=== PATIENT | female | born 1955 | race Caucasian/White ===

== ENCOUNTER 2023-02-01 13:48 | Outpatient (OUT) | payer MEDICARE, SELFPAY ==
[2023-02-01 14:09] LABS: Bilirubin Urine NEGATIVE (NEGATIVE); Blood Urine SMALL (NEGATIVE); Clarity Urine CLEAR (CLEAR); Color Urine LT. YELLOW (YELLOW); Glucose Urine UA NEGATIVE (NEGATIVE); Ketones Urine NEGATIVE (NEGATIVE); Leukocyte Esterase Urine LARGE (NEGATIVE); Nitrite Urine POSITIVE (NEGATIVE); Protein Urine NEGATIVE (NEG/TRACE); Urobilinogen Urine 0.2 EU/dL (0.2-1.0)
[2023-02-01 14:21] LABS: WBC Urine 50-75 #/HPF (NONE SEEN)
[2023-02-01 14:22] LABS: Bacteria Urine SMALL #/HPF (NONE SEEN); Cast Seen? NONE SEEN #/LPF (NONE SEEN); Crystals Seen? None Seen #/HPF (None Seen); Mucus Urine TRACE (NONE SEEN); Squamous Epithelial Cell Urine RARE #/LPF (NONE/RARE); Urine Culture Indicated ALREADY ORDERED
== END 2023-02-01 13:49 | disposition home or self-care (01) ==
PROVIDERS: PCP Family Medicine; Visit Provider Nurse Practitioner Family
DX: N39.0 Urinary tract infection, site not specified (principal)
CPT/HCPCS: 81001; 87086; 87150; 87186

== ENCOUNTER 2023-03-08 13:52 | Outpatient (OUT) | payer MEDICARE, SELFPAY ==
[2023-03-08 15:36] LABS: Bilirubin Urine NEGATIVE (NEGATIVE); Blood Urine SMALL (NEGATIVE); Clarity Urine CLEAR (CLEAR); Color Urine LT. YELLOW (YELLOW); Glucose Urine UA NEGATIVE (NEGATIVE); Ketones Urine NEGATIVE (NEGATIVE); Leukocyte Esterase Urine MODERATE (NEGATIVE); Nitrite Urine POSITIVE (NEGATIVE); Protein Urine NEGATIVE (NEG/TRACE); Specific Gravity Urine <=1.005 (1.005-1.025); Urobilinogen Urine 0.2 EU/dL (0.2-1.0)
[2023-03-08 16:00] LABS: Bacteria Urine NONE SEEN #/HPF (NONE SEEN); Cast Seen? NONE SEEN #/LPF (NONE SEEN); Crystals Seen? None Seen #/HPF (None Seen); Mucus Urine NONE SEEN (NONE SEEN); RBC Urine 0-2 #/HPF (0-2); Squamous Epithelial Cell Urine RARE #/LPF (NONE/RARE)
[2023-03-08 16:01] LABS: Urine Culture Indicated ALREADY ORDERED
== END 2023-03-08 13:53 | disposition home or self-care (01) ==
LOC: LAB 13:56
PROVIDERS: PCP Family Medicine; Visit Provider Family Medicine
DX: R30.0 Dysuria (principal)
CPT/HCPCS: 81001; 87086; 87150; 87186

== ENCOUNTER 2023-03-26 08:40 | Outpatient (OUT) | payer MEDICARE, SELFPAY ==
[2023-03-26 09:13] LABS: Basophils Absolute Auto 0.1 10^3/uL (0.0-0.1); Basophils Percent Auto 1.1 % (0.2-2.0); Eosinophils Absolute Auto 0.5 10^3/uL (0.0-0.7); Eosinophils Percent Auto 7.9 % (0.9-7.0); Hematocrit 35.8 % (36.0-48.0); Hemoglobin 11.8 g/dL (12.0-16.0); Immature Granulocytes Abs Auto 0.01 10^3/uL (0.00-0.03); Immature Granulocytes Pct Auto 0.2 % (0.0-0.5); Lymphocytes Absolute Auto 2.5 10^3/uL (1.2-3.8); Lymphocytes Percent Auto 44.6 % (20.5-60.0); Mean Corpuscular Hemoglobin 29.9 pg (26.7-34.0); Mean Corpuscular Volume 90.6 fL (81.0-99.0); Mean Platelet Volume 8.9 fL (9.5-13.5); Monocytes Absolute Auto 0.5 10^3/uL (0.3-0.8); Monocytes Percent Auto 8.3 % (1.7-12.0); Neutrophils Absolute Auto 2.2 10^3/uL (1.4-6.5); Neutrophils Percent Auto 37.9 % (43.0-75.0); Platelet Count 164 10^3/uL (150-450); Red Blood Count 3.95 10^6/uL (4.20-5.40); White Blood Count 5.7 10^3/uL (4.0-11.0)
[2023-03-26 09:17] LABS: Estimated Average Glucose 126 mg/dL
[2023-03-26 10:28] LABS: Alanine Aminotransferase 30 U/L (14-59); Albumin Globulin Ratio 1.1; Albumin Level 3.8 g/dL (3.4-5.0); Alkaline Phosphatase 57 U/L (46-116); Anion Gap 12.8; Aspartate Amino Transferase 13 U/L (15-37); BUN Creatinine Ratio 23.8; Bilirubin Total 0.3 mg/dL (0.2-1.0); Calcium 9.1 mg/dL (8.5-10.1); Carbon Dioxide 28.8 mmol/L (21.0-32.0); Chloride 104 mmol/L (98-107); Chol HDL Ratio 4.3; Cholesterol 171 mg/dL (<=200); Estimated GFR (African America >60 (>=60); Estimated GFR (Non-African Ame 55 (>=60); Free T3 1.85 pg/mL (2.18-3.98); Globulin 3.4 g/dL; Glucose 120 mg/dL (74-106); HDL Cholesterol 40 mg/dL (40-60); Potassium 4.6 mmol/L (3.5-5.1); Sodium 141 mmol/L (136-145); Thyroid Stimulating Hormone 4.026 uIU/mL (0.358-3.740); Total Protein 7.2 g/dL (6.4-8.2); Triglycerides 163 mg/dL (<=150); VLDL CHOLESTEROL 32.6 mg/dL
== END 2023-03-26 08:41 | disposition home or self-care (01) ==
LOC: LAB 08:41
PROVIDERS: PCP Family Medicine; Visit Provider Family Medicine
DX: I10 Essential (primary) hypertension (principal); E11.9 Type 2 diabetes mellitus without complications; R73.09 Other abnormal glucose; D64.9 Anemia, unspecified; E55.9 Vitamin D deficiency, unspecified
CPT/HCPCS: 36415; 80053; 80061; 82306; 83036; 83540; 84436; 84443; 84481; 85025

== ENCOUNTER 2023-03-31 08:00 | Outpatient (OUT) | payer MEDICARE, SELFPAY ==
--- NOTE | 2023-03-31 08:04 | XR_ITS ---
The [address] [address] Patient Name: GRICELDA LOPEZ MRN: [id number] date: 1955 Sex: F Assigned Patient Location: US Current Patient Location: US Accession/Order Number: [id number] Exam Date: 03/31/2023 08:47 Report Date: 03/31/2023 09:21 At the request of: SINAN HILL Procedure: XR cervical spine 5V EXAMINATION: XR cervical spine 5V HISTORY: Cervical Radiculopathy M54.12 COMPARISON: No relevant comparison available. FINDINGS: BONES: Normal alignment with no acute fracture or spondylolisthesis. Mild degenerative spondylosis and facet osteoarthropathy DISC SPACES: Moderate narrowing C5-C7 PARASPINOUS: Negative. No paraspinous abnormality is seen. OTHER: Negative. XR/XR cervical spine 5V IMPRESSION: Degenerative changes most significant C5-C7 Electronically authenticated by: BRENT BENJAMIN Date: 03/31/2023 09:21
--- NOTE | 2023-03-31 08:05 | US_ITS ---
The [address] [address] Patient Name: GRICELDA LOPEZ MRN: [id number] date: 1955 Sex: F Assigned Patient Location: US Current Patient Location: US Accession/Order Number: [id number] Exam Date: 03/31/2023 08:15 Report Date: 03/31/2023 08:52 At the request of: SINAN HILL Procedure: US renal bladder EXAM: US renal bladder HISTORY: Recurrent Urinary Tract Infection N39.0 COMPARISON: CT abdomen and pelvis 11/11/2022. TECHNIQUE: Real-time ultrasound imaging of the kidneys and bladder. Findings: The right and left kidneys measure 10.2 and 12.0 cm. There is good corticomedullary differentiation bilaterally. No renal stones. No right-sided collecting system dilatation. Mild left pelviectasis. No focal mass or perinephric fluid collection. The bladder is fluid-filled with a prevoid volume of 290 mL. The bilateral ureteral jets identified. Postvoid residual volume of 13 mL. US/US renal bladder IMPRESSION: 1. Mild left pelviectasis. Findings may relate to normal variant, obstruction, reflux or recently passed stone. Electronically authenticated by: GAVIN JOHNSON Date: 03/31/2023 08:52
== END 2023-03-31 08:01 | disposition home or self-care (01) ==
LOC: US 08:01
PROVIDERS: PCP Family Medicine; Visit Provider Family Medicine
DX: M54.12 Radiculopathy, cervical region (principal); N39.0 Urinary tract infection, site not specified; N28.89 Other specified disorders of kidney and ureter; M50.321 Other cervical disc degeneration at C4-C5 level; M50.323 Other cervical disc degeneration at C6-C7 level
CPT/HCPCS: 72050; 76770

== ENCOUNTER 2023-04-26 08:16 | Outpatient (OUT) | payer MEDICARE, SELFPAY ==
[2023-04-26 09:26] LABS: Free T3 2.64 pg/mL (2.18-3.98); Thyroid Stimulating Hormone 2.963 uIU/mL (0.358-3.740)
[2023-04-26 09:59] LABS: Free T4 0.93 ng/dL (0.76-1.46)
== END 2023-04-26 08:17 | disposition home or self-care (01) ==
LOC: LAB 08:19
PROVIDERS: PCP Family Medicine; Visit Provider Family Medicine
DX: E03.9 Hypothyroidism, unspecified (principal)
CPT/HCPCS: 36415; 84439; 84443; 84481

== ENCOUNTER 2023-04-26 19:58 | Outpatient (OUT) | payer MEDICARE, SELFPAY | END 2023-04-26 19:59 | disposition home or self-care (01) | LOC: SLEEP 19:58 | PROVIDERS: PCP Family Medicine; Visit Provider Family Medicine | DX: G47.33 Obstructive sleep apnea (adult) (pediatric) (principal) | CPT/HCPCS: 95810 ==

== ENCOUNTER 2023-06-01 21:00 | Outpatient (OUT) | payer MEDICARE, SELFPAY ==
--- OUTSIDE RECORDS SUMMARY | 2023-06-02 07:14 | XMS_ITS | CCD ---
Author Name Unknown Address [address] [place] [address] Organization [facility] Care Team Providers Care Engine Lathe Operator Name Role Phone MD Christophe Louis Attending Provider SERGIO Del Valle, DR MENON Attending Unavailable SERGIO Del Valle, DR MENON Consulting Unavailable SERGIO Del Valle, DR MENON Primary Care Unavailable SERGIO Del Valle, DR MENON Admitting Unavailable Christophe Louis Attending Unavailable Christophe Louis Admitting Unavailable Problems Problem Classification Problem Date Documented Da te Episodic/Chronic Unclassified (1 source) Local infection of the skin and subcutaneous tissue, unspecified; Translations: [Local infection of the skin and subcutaneous tissue, unspecified] Onset: 10-22-2022 Results Test Name Value Interpretation Reference Range Facil ity CBC AUTO DIFFon 11-11-2022 BASO # 0.0 103/ul Normal 0.0-0.1 [facility] Comment on above: Performed By: #### I RADHA VITAD #### [facility] [address] [address] [address] Dario Umaña Basophils/100 WBC (Bld) 0.5 % Normal 0.2-2.0 [facility] Comment on above: Performed By: #### I RADHA VITAD #### [facility] [address] [address] [address] Dario Umaña EO # 0.4 103/ul Normal 0.0-0.7 [facility] Comment on above: Performed By: #### Lizzette GARCIA VITAD #### [facility] [address] [address] [address] Dario Umaña Eosinophils/100 WBC (Bld) 5.3 % Normal 0.9-7.0 [facility] Comment on above: Performed By: #### Lizzette GARCIA, VITAD #### [facility] [address] [place] [address] Dr. Dario Umaña Erythrocyte distribution wid th (RBC) [Ratio] 12.3 % Normal 11.0-15.0 [facility] Comment on above: Performed By: #### Lizzette GARCIA, VITAD #### [facility] [address] [place] [address] Dr. Dario Umaña Hematocrit (Bld) [Volume fraction] 40.1 % Normal 3 6.0-48.0 [facility] Comment on above: Performed By: #### Lizzette GARCIA VITAD #### [facility] [address] [place] [address] Dr. Dario Umaña Hemoglobin (Bld) [Mass/Vol] 13.4 g/dL Normal 12.0-16. 0 [facility] Comment on above: Performed By: #### Lizzette GARCIA VITAD #### [facility] [address] [place] [address] Dr. Dario Umaña IG # 0.02 10e3/ul Normal 0.00-0.03 [facility] Comment on above: Performed By: #### Lizzette GARCIA VITAD #### [facility] [address] [place] [address] Dr. Dario Umaña IG % 0.3 % Normal 0.0-0.5 [facility] Comment on above: Performed By: #### Lizzette GARCIA VITAD #### [facility] [address] [place] [address] Dr. Dario Umaña LYMPH # 2.6 103/ul Normal 1.2-3.8 [facility] Comment on above: Performed By: #### Lizzette GARCIA VITAD #### [facility] [address] [place] [address] Dr. Dario Umaña Lymphocytes/100 WBC (Bld) 38.6 % Normal 20.5-60.0 [facility] Comment on above: Performed By: #### Lizzette GARCIA VITAD #### [facility] [address] [place] [address] Dr. Dario Umaña MANUAL DIFF REQ NO Normal [facility] [place] Comment on above: Performed By: #### I RADHA, VITAD #### [facility] [address] [place] [address] Dr. Dario Umaña MCH (RBC) [Entitic mass] 29.3 pg Normal 26.7-34.0 [facility] Comment on above: Performed By: #### I RADHA, VITAD #### [facility] [address] [place] [address] Dr. Dario Umaña MCHC (RBC) [Mass/Vol] 33.4 g/dL Normal 29.9-35.2 [facility] Comment on above: Performed By: #### I RADHA, VITAD #### [facility] [address] [place] [address] Dr. Dario Umaña MCV (RBC) [Entitic vol] 87.7 fL Normal 81.0-99.0 [facility] Comment on above: Performed By: #### I RAHDA, VITAD #### [facility] [address] [place] [address] Dr. Dario Umaña MONO # 0.5 103/ul Normal 0.3-0.8 [facility] Comment on above: Performed By: #### Lizzette GARCIA, VITAD #### [facility] [address] [place] [address] Dr. Dario Umaña Monocytes/100 WBC (Bld) 7.5 % Normal 1.7-12.0 [facility] Comment on above: Performed By: #### I RADHA, VITAD #### [facility] [address] [place] [address] Dr. Dario Umaña NEUT # 3.2 103/ul Normal 1.4-6.5 [facility] Comment on above: Performed By: #### I RADHA, VITAD #### [facility] [address] [place] [address] Dr. Dario Umaña Neutrophils/100 WBC (Bld) 47.8 % Normal 43.0-75.0 [facility] Comment on above: Performed By: #### I RADHA, VITAD #### [facility] [address] [address] [address] Dario Umaña Platelet mean volume (Bld) [Entitic vol] 8.7 fL Critically low 9.5-13.5 [facility] Comment on above: Performed By: #### I RADHA, VITAD #### [facility] [address] [address] [address] Dario Umaña PLT 200 103/ul Normal 150-450 [facility] Comment on above: Performed By: #### I RADHA, VITAD #### [facility] [address] [address] [address] Dario Umaña RBC 4.57 106/ul Normal 4.20-5.40 [facility] Comment on above: Performed By: #### I RADHA, VITAD #### [facility] [address] [address] [address] Dario Umaña WBC 6.6 103/ul Normal 4.0-11.0 [facility] Comment on above: Performed By: #### I RADHA, VITAD #### [facility] [address] [address] [address] Dario U[address]ña [address] ABD/PELV W CONon 11-12-19 CT ABD/PELV W CON EXAMINATION: CT ABD/ PELV W CON HISTORY: Essential hypertension COMPARISON: None. TECHNIQUE: Axial CT images were obtained of the abdomen and pelvis with intravenous contrast. Multiplanar reconstructions were performed. Dose reduction techniques were achieved by using automated exposure control and/or adjustment of mA and/or kV according to patient size and/or use of iterative reconstruction technique. ABDOMEN/PELVIS FINDINGS: Lower Chest: Unremarkable. Liver: Normal enhancement and contour. Biliary/Gallbladder: Unremarkable. Pancreas: Unremarkable. Spleen: Unremarkable. Adrenal Glands: Unremarkable. Kidneys: Unremarkable. Gastrointestinal/Peritoneum: No acute abnormality. Mild colonic diverticulosis is present. The appendix is unremarkable. No free air or free fluid. Vascular: Unremarkable. There is no evidence of atherosclerotic disease in the renal arteries. Lymph Nodes: No enlarged lymph nodes by CT size criteria. Pelvic Organs: Unremarkable. Bladder: Unremarkable. Bones: No acute osseous abnormality. Multilevel degenerative changes present in the spine with a prominent disc osteophyte complex at L1-L2 causing moderate to severe stenosis of the right lateral recess and neural foramina. Soft tissues: Unremarkable. IMPRESSION: 1. No acute abnormality of the abdomen and pelvis. 2. Mild colonic diverticulosis. 3. Prominent disc osteophyte complex at L1-L2 causing moderate to severe stenosis of the right lateral recess and neural foramina. Electronically authenticated by: ASYA ELIAN Date: 2022-11-11 10:01 Normal [facility] FREE THYROXINE INDEX T7on FTI 3.30 Normal 1.30-4.50 [facility] Comment on above: Performed By: #### C MP, TSH, LIPID, T7 #### [facility] [address] [address] [address] Dario Umaña T3U 33.0 % Normal 30.0-39.0 [facility] Comment on above: Performed By: #### C MP, TSH, LIPID, T7 #### [facility] [address] [place] [address] Dr. Dario Umaña T4 [Mass/Vol] 10.00 ug/dL Normal 4.80-13.90 [facility] Comment on above: Performed By: #### C MP, TSH, LIPID, T7 #### [facility] [address] [place] [address] Dr. Dario Umaña GLYCOHEMOGLOBIN A1Con 2022 ADA RECOMMENDATION SEE BELOW Normal [facility] Comment on above: Result Comment: ADA RECOMMENDED LIMIT 4.0 - 6.0 ADA THERAPEUTIC TARGET < 7.0 ACTION SUGGESTED > 7.0 Performed By: #### A 1C #### [facility] [address] [address] [address] Dario Umaña Glucose [Mass/Vol] 123 mg/dL Normal [facility] Comment on above: Performed By: #### A 1C #### [facility] [address] [place] [address] Dr. Dario Umaña HbA1c (Bld) [Mass fraction] 5.9 % Normal 4.5-6.2 [facility] Comment on above: Performed By: #### A 1C #### [facility] [address] [address] [address] Dario Umaña IRONon 11-11-2022 Iron [Mass/Vol] 92.0 ug/dL Normal 50.0-170.0 [facility] Comment on above: Performed By: #### I VALENTINO GARCIA #### [facility] [address] [address] [address] Dario Umaña LIPID PROFILEon 11-11-2022 CHOL-HDL RATIO NORM SEE BELOW Normal [facility] Comment on above: Result Comment: 3.3 - 4.4 LOW RISK 4.4 - 7.1 AVERAGE RISK 7.1 - 11.0 MODERATE RISK >11.0 HIGH RISK Performed By: #### C MP, TSH, LIPID, T7 #### [facility] [address] [address] [address] Dario Umaña Cholesterol [Mass/Vol] 174 mg/dL Normal <=200 [facility] Comment on above: Performed By: #### C MP, TSH, LIPID, T7 #### [facility] [address] [address] [address] Dario Umaña Cholesterol in HDL [Mass/Vol] 55 mg/dL Normal 40-60 [facility] Comment on above: Performed By: #### C MP, TSH, LIPID, T7 #### [facility] [address] [address] [address] Dario Umaña Cholesterol in LDL [Mass/Vol] 91.2 mg/dL Normal [facility] Comment on above: Performed By: #### C MP, TSH, LIPID, T7 #### [facility] [address] [address] [address] Dario Umaña Cholesterol.total/Cholestero l in HDL [Mass ratio] 3.2 {ratio} Normal [facility] Comment on above: Performed By: #### C MP, TSH, LIPID, T7 #### [facility] [address] [address] [address] Dario Umaña HDL NORMAL > or = 60 mg/dl - LO W CARDIOVASCULAR RISK <40 mg/dl - HIGH CARDIOVASCULAR RISK Normal [facility] Comment on above: Performed By: #### C MP, TSH, LIPID, T7 #### [facility] [address] [place], [place] [address] Dr. Dario Umaña LDL CALC NORMAL SEE BELOW Normal [facility] Comment on above: Result Comment: <100 mg/dl OPTIMAL 100 - 129 mg/dl NEAR OR ABOVE OPTIMAL 130 - 159 mg/dl BORDERLINE HIGH 160 - 189 mg/dl HIGH >190 mg/dl VERY HIGH Performed By: #### C MP, TSH, LIPID, T7 #### [facility] [address] [place], [place] [address] Dr. Dario Umaña Triglyceride [Mass/Vol] 139 mg/dL Normal <=150 [facility] Comment on above: Performed By: #### C MP, TSH, LIPID, T7 #### [facility] [address] [place], [place] [address] Dr. Dario Umaña VLDL CALC 27.8 mg/dL Normal [facility] Comment on above: Performed By: #### C MP, TSH, LIPID, T7 #### [facility] [address] [place], [place] [address] Dr. Dario Umaña MG MAMM SCREEN 3D LUBNA CADon 11-11-2022 MG MAMM SCREEN 3D LUBNA CAD Patient: GRICELDA LOPEZ Exam Date: 11/11/2022 : 1955 Gender:F Ordering : DR SINAN HILL . Admission #: [id number] Family : Order #: [id number] CLICK HERE TO VIEW EXAM RADIOLOGY REPORT PROCEDURE: MAMMOGRAM SCREENING 3D BILATERAL CAD COMPARISON: MG MAMM SCREEN 3D LUBNA CAD, 02/06/2021. MG MAMM LUBNA SCRN W CAD DIG, 12/18/2014. DIGITIZED_MAMMO, 04/25/2010. DIGITIZED_MAMMO, 06/29/2008. INDICATIONS: Screening mammography Calculator Name NCI Breast Cancer Risk Assessment Tool 5 Year Breast Cancer Risk Not Reported. Lifetime Breast Cancer Risk Not Reported. Personal Breast Cancer No Personal Ovarian Cancer No Treatments None Family Cancers None LOCATION: [facility] BREAST COMPOSITION: Almost entirely fatty. FINDINGS: DIAGNOSTIC CATEGORY 1--NEGATIVE. RIGHT BREAST: No significant suspicious finding. No significant change has occurred. LEFT BREAST: No significant suspicious finding. No significant change has occurred. RECOMMENDATIONS: ROUTINE MAMMOGRAM AND CLINICAL EVALUATION IN 12 MONTHS. PLEASE NOTE: A NORMAL MAMMOGRAM DOES NOT EXCLUDE THE POSSIBILITY OF BREAST CANCER. A CLINICALLY SUSPICIOUS PALPABLE LUMP SHOULD BE BIOPSIED. Dictated by: Tex Baldwin M.D. on 11/11/2022 at 16:43 Approved by: Tex Baldwin M.D. on 11/11/2022 at 16:48 Normal [facility] tara PROF 14(COMP METB)on 023 Albumin [Mass/Vol] 3.9 g/dL Normal 3.4-5.0 [facility] Comment on above: Performed By: #### C MP, TSH, LIPID, T7 #### [facility] [address] [place] [address] Dr. Dario Umaña Albumin/Globulin [Mass ratio] 1.1 {ratio} Normal [facility] Comment on above: Performed By: #### C MP, TSH, LIPID, T7 #### [facility] [address] [address] [address] Dario Umaña ALP [Catalytic activity/Vol] 76 U/L Normal 46-116 [facility] Comment on above: Performed By: #### C MP, TSH, LIPID, T7 #### [facility] [address] [place] [address] Dr. Dario Umaña ALT [Catalytic activity/Vol] 38 U/L Normal 14-59 [facility] Comment on above: Performed By: #### C MP, TSH, LIPID, T7 #### [facility] [address] [address] [address] Dario Umaña Anion gap [Moles/Vol] 15.8 mmol/L Normal [facility] Comment on above: Performed By: #### C MP, TSH, LIPID, T7 #### [facility] [address] [address] [address] Dario Umaña AST [Catalytic activity/Vol] 21 U/L Normal 15-37 [facility] Comment on above: Performed By: #### C MP, TSH, LIPID, T7 #### [facility] [address] [place] [address] Dr. Dario Umaña Bilirubin [Mass/Vol] 0.5 mg/dL Normal 0.2-1.0 [facility] Comment on above: Performed By: #### C MP, TSH, LIPID, T7 #### [facility] [address] [address] [address] Dario Umaña Calcium [Mass/Vol] 9.0 mg/dL Normal 8.5-10.1 [facility] Comment on above: Performed By: #### C MP, TSH, LIPID, T7 #### [facility] [address] [address] [address] Dario Umaña Chloride [Moles/Vol] 105 mmol/L Normal 98-107 [facility] Comment on above: Performed By: #### C MP, TSH, LIPID, T7 #### [facility] [address] [place] [address] Dr. Dario Umaña CO2 [Moles/Vol] 22.6 mmol/L Normal 21.0-32.0 [facility] Comment on above: Performed By: #### C MP, TSH, LIPID, T7 #### [facility] [address] [place] [address] Dr. Dario Umaña Creatinine [Mass/Vol] 0.89 mg/dL Normal 0.55-1.02 [facility] Comment on above: Performed By: #### C MP, TSH, LIPID, T7 #### [facility] [address] [place] [address] Dr. Dario Umaña EGFR-AF ANDORRAN >60 Normal >=60 [facility] Comment on above: Performed By: #### C MP, TSH, LIPID, T7 #### [facility] [address] [place] [address] Dr. Dario Umaña EGFR-NON AF ANDORRAN >60 Normal >=60 [facility] Comment on above: Performed By: #### C MP, TSH, LIPID, T7 #### [facility] [address] [address] [address] Dario Umaña Globulin (S) [Mass/Vol] 3.6 g/dL Normal [facility] Comment on above: Performed By: #### C MP, TSH, LIPID, T7 #### [facility] [address] [place] [address] Dr. Dario Umaña Glucose [Mass/Vol] 120 mg/dL Critically high 74-106 [facility] Comment on above: Performed By: #### C MP, TSH, LIPID, T7 #### [facility] [address] [place] [address] Dr. Dario Umaña Potassium [Moles/Vol] 4.4 mmol/L Normal 3.5-5.1 [facility] Comment on above: Performed By: #### C MP, TSH, LIPID, T7 #### [facility] [address] [place] [address] Dr. Dario Umaña Protein [Mass/Vol] 7.5 g/dL Normal 6.4-8.2 [facility] Comment on above: Performed By: #### C MP, TSH, LIPID, T7 #### [facility] [address] [place] [address] Dr. Dario Umaña Sodium [Moles/Vol] 139 mmol/L Normal 136-145 [facility] Comment on above: Performed By: #### C MP, TSH, LIPID, T7 #### [facility] [address] [place] [address] Dr. Dario Umaña Urea nitrogen [Mass/Vol] 16.0 mg/dL Normal 7.0-18.0 [facility] Comment on above: Performed By: #### C MP, TSH, LIPID, T7 #### [facility] [address] [place] [address] Dr. Dario Umaña Urea nitrogen/Creatinine [Mass ratio] 18.0 mg/mg Normal [facility] Comment on above: Performed By: #### C MP, TSH, LIPID, T7 #### [facility] [address] [place] [address] Dr. Dario Umaña TSHon 11-11-2022 TSH 3.151 uIU/mL Normal 0.358-3.740 [facility] Comment on above: Performed By: #### C MP, TSH, LIPID, T7 #### [facility] [address] [place] [address] Dr. Dario Umaña UA RANDOMon 11-11-2022 Bilirubin Ql (U) Negative Normal NEGATIVE [facility] Comment on above: Performed By: #### U A #### [facility] [address] [place] [address] Dr. Dario Umaña Clarity (U) CLEAR Normal CLEAR [facility] Comment on above: Performed By: #### U A #### [facility] [address] [place] [address] Dr. Dario Umaña Color (U) LT. YELLOW Normal YELLOW [facility] Comment on above: Performed By: #### U A #### [facility] [address] [place] [address] Dr. Dario Umaña Glucose Ql (U) Negative Normal NEGATIVE [facility] Comment on above: Performed By: #### U A #### [facility] [address] [place] [address] Dr. Dario Umaña Hemoglobin Ql (U) Negative Normal NEGATIVE [facility] Comment on above: Performed By: #### U A #### [facility] [address] [place] [address] Dr. Dario Umaña Ketones Ql (U) Negative Normal NEGATIVE [facility] Comment on above: Performed By: #### U A #### [facility] [address] [place] [address] Dr. Dario Umaña LEUKOCYTES MODERATE Abnormal NEGATIVE [facility] Comment on above: Performed By: #### U A #### [facility] [address] [place] [address] Dr. Dario Umaña Nitrite Ql (U) Positive Abnormal NEGATIVE [facility] Comment on above: Performed By: #### U A #### [facility] [address] [place] [address] Dr. Dario Umaña pH (U) 5.5 [pH] Normal 5-9 [facility] Comment on above: Performed By: #### U A #### [facility] [address] [place] [address] Dr. Dario Umaña SPEC GRAVITY 1.025 Normal 1.005-<=1.025 [facility] Comment on above: Performed By: #### U A #### [facility] [address] [place] [address] Dr. Dario Umaña UA PROTEIN Negative Normal NEGATIVE/ TRACE [facility] Comment on above: Performed By: #### U A #### [facility] [address] [place] [address] Dr. Dario Umaña Urobilinogen Qn (U) 0.2 {German'U}/dL Normal 0.2 - 1. 0 [facility] Comment on above: Performed By: #### U A #### [facility] [address] [place] [address] Dr. Dario Umaña VITAMIN D 25 OHon 11-11-2022 VIT D 25-OH 71.1 ng/mL Normal [facility] Comment on above: Performed By: #### I RADHA VITAD #### [facility] [address] [place] [address] Dr. Dario Umaña VIT D RANGES SEE BELOW Normal [facility] Comment on above: Result Comment: <20 ng/mL Vit D deficient 20 - <30 ng/mL Vit D insufficient 30 - 100 ng/mL Vit D sufficient >100 ng/mL Potential Toxicity Performed By: #### I RADHA VITAD #### [facility] [address] [place] [address] Dr. Dario Umaña Superficial Wound Cultureon 10-22-2022 Superficial Wound Culture ORGANISM: Proteus vulgaris group (O:PROVULGRP) Quantity of Growth Moderate Growth Aerobic BENEDICTO Charge (NMIC56) SUSCEPTIBILITY ORGANISM: O:PROVULGRP ANTIBIOTIC INTERPRETATION BENEDICTO Amikacin S <16 Amoxacillin/K Clavulanate S <8 Ampicillin/Sulbactam S 88/4 Aztreonam S <4 Cefepime S <2 Ceftazidime S <1 Ceftriaxone S <1 Ciprofloxacin S <0.25 Ertapenem S <0.5 Gentamicin S <2 Levofloxacin S <0.5 Meropenem S <1 Piperacillin/Tazobactam S <8 Tobramycin S <2 Trimethoprim/Sulfamethoxazole S <0.5 S = SUSCEPTIBLE I = INTERMEDIATE R = RESISTANT BLANK = DATA NOT AVAILABLE, OR DRUG NOT ADVISABLE OR TESTED R* = RESISTANCE DUE TO EXTENDED SPECTRUM BETA-LACTAMASES ESBL = EXTENDED SPECTRUM BETA-LACTAMASE TFG = THYMIDINE-DEPENDENT STRAIN HI = BETA-LACTAMASE POSITIVE IB = INDUCIBLE BETA-LACTAMASE. APPEARS IN PLACE OF 'S' WITH SPECIES KNOWN TO POSSESS INDUCIBLE BETA-LACTAMASES. POTENTIALLY THEY MAY BECOME RESISTANT TO ALL B-LACTAM DRUGS. PERFORMED BY: [place] [address] PATHOLOGIST VIDEO RECORDER MECHANIC DORETHA BLOOD M.D. [facility] Comment on above: Performed By: #### C USUP #### [address] Physician Referralon [facility] Physician Referral [id number] [facility] Encounters Encounter Date Encounter Type Care Provider Facility Start: 11-11-[address] SINAN HILL . Facili ty:H1 Start: 10-22-2022 End: 10-22-2022 ambulatory Christophe Louis Facility:[facility] Start: 10-22-2022 End: 10-22-2022 ambulatory MD Christophe Louis Work Phone: [facility] Work Phone: Start: 10-22-2022 End: 10-22-2022 Patient encounter procedure MD Christophe Louis Work Phone: [facility] [place] Work Phone: Plan of Treatment Date Care Activity Detail Author Start: 10-22-2022 Superficial Wound Culture Superficial Wound Culture [facility] Bacteria identified in Unspecified specimen by Aerobe culture [facility] Payers Date Payer Category Payer Self-pay 1958 Medicare [id number] 1955 Unknown [id number] Unknown [id number] Social History Date Type Detail [facility] Work Phone: Start: 1955 Sex Assigned At Female [facility] Evaluation note Note Date & Type Note Facility Evaluation note No assessment information availa ble [facility] Work Phone: Summary Purpose Family History No Family History Records FoundNo Family History Records FoundNo Family History Records Found Advance Directives No Advanced Directives Records FoundNo Advanced Directives Records FoundNo Advanced Directives Records Found Additional Source Comments INFORMATION SOURCE (unrecogn ized section and content) DATE CREATED AUTHOR 03/07/2021 [facility]mar[facility] DATE CREATED AUTHOR AUTHOR'S ORGANIZ ATION 11/20/2022 [facility] DATE CREATED AUTHOR AUTHOR'S ORGANIZ ATION 03/20/2023 [facility] Care Teams (unrecognized sec tion and content) Team Status: Inactive Member Role Status Dates Christophe Louis MD Attending Provider Active Goals (unrecognized section and content) Goals may be documented in a n alternate section FOR RECORDS PERTAINING TO PATIENTS WHO ARE OR HAVE BEEN ENROLLED IN A CHEMICAL DEPENDENCY/SUBSTANCEABUSE PROGRAM, SOME INFORMATION MAY BE OMITTED. This clinical summary was aggregated from multiple sources. Caution should be exercised in using it in the provision of clinical care. This summary normalizes information from multiple sources, and as a consequence, information in this document may materially change the coding, format and clinical context of patient data. In addition, data may be omitted in some cases. CLINICAL DECISIONS SHOULD BE BASED ON THE PRIMARY CLINICAL RECORDS. [employer] provides no warranty or guarantee of the accuracy or completeness of information in this document.
== END 2023-06-01 21:01 | disposition home or self-care (01) ==
LOC: SLEEP 06-02 07:03
PROVIDERS: PCP Family Medicine; Visit Provider Family Medicine
DX: G47.33 Obstructive sleep apnea (adult) (pediatric) (principal)
CPT/HCPCS: 95811

== ENCOUNTER 2023-06-03 07:59 | Outpatient (OUT) | payer MEDICARE, SELFPAY ==
--- NOTE | 2023-06-03 08:33 | CA_ITS ---
[facility] Test Date: 2023-06-21 Pat Name: GRICELDA LOPEZ Department: Room: - Gender: Female [employer]: : [id number] Requested By: SINAN HILL Order Number: [id number] Reading MD: LANI ORLANDO Interpretive Statements Predominant rhythm is sinus with average rate of 81 bpm Tachycardia - max rate of 134 bpm (sinus tachycardia) - longest episode of 34min 37sec with rates between 123-126 bpm Bradycardia - min rate of 55 bpm - longest episode of 11sec with rates between 55-57 bpm Ventricular ectopy - 3 PVC Patient triggered events: 3 - associated with symptoms of CP, palpitations and SOB - associated with rates of 111, 118 BPM w/ last NSR Impression: Predominant rhythm is sinus with average rate of 81 bpm Fastest rate of 134 bpm (sinus tachycardia) and slowest rate of 55 bpm 3 PVC No atrial fib No pauses or blocks Electronically Signed On 06-22-2023 22:31:47 EST by LANI ORLANDO
--- OUTSIDE RECORDS SUMMARY | 2023-06-03 10:33 | XMS_ITS | CCD ---
Author Name Unknown Address [address] [place] [address] Organization [facility] Care Team Providers Care Inspector And Clerk Name Role Phone MD Christophe Louis Attending Provider [phone] SERGIO Del Valle, DR MENON Attending Unavailable [...] Results Test Name Value Interpretation Reference Range Facility CBC AUTO DIFFon 11-11-2022 BASO # 0.0 103/ul Normal 0.0-0.1 [facility] [place] Comment on above: Performed By: #### Lizzette GARCIA VITAD #### [facility] [address] [address] [address] Dario Umaña Basophils/100 WBC (Bld) 0.5 % Normal 0.2-2.0 [facility] Comment on above: Performed By: #### I RADHA VITAD #### [facility] [address] [address] [address] Dario Umaña EO # 0.4 103/ul Normal 0.0-0.7 [facility] [place] Comment on above: Performed By: #### Lizzette GARCIA VITAD #### [facility] [address] [address] [address] Dario Umaña Eosinophils/100 WBC (Bld) 5.3 % Normal 0.9-7.0 [facility] [place] Comment on above: Performed By: #### I RADHA, VITAD #### [facility] [address] [place] [address] Dr. Dario Umaña Erythrocyte distribution width (RBC) [Ratio] 12.3 % Normal 11.0-15.0 [facility] [place] Comment on above: Performed By: #### Lizzette GARCIA, VITAD #### [facility] [address] [place] [address] Dr. Dario Umaña Hematocrit (Bld) [Volume fraction] 40.1 % Normal 36.0-48.0 [facility] [place] Comment on above: Performed By: #### I RADHA VITAD #### [facility] [address] [place] [address] Dr. Dario Umaña Hemoglobin (Bld) [Mass/Vol] 13.4 g/dL Normal 12.0-16.0 [facility] [place] Comment on above: Performed By: #### Lizzette GARCIA VITAD #### [facility] [address] [place] [address] Dr. Dario Umaña IG # 0.02 10e3/ul Normal 0.00-0.03 [facility] [place] Comment on above: Performed By: #### Lizzette GARCIA VITAD #### [facility] [address] [place] [address] Dr. Dario Umaña IG % 0.3 % Normal 0.0-0.5 [facility] [place] Comment on above: Performed By: #### Lizzette GARCIA VITAD #### [facility] [address] [place] [address] Dr. Dario Umaña LYMPH # 2.6 103/ul Normal 1.2-3.8 [facility] [place] Comment on above: Performed By: #### Lizzette GARCIA VITAD #### [facility] [address] [place] [address] Dr. Dario Umaña Lymphocytes/100 WBC (Bld) 38.6 % Normal 20.5-60.0 [facility] [place] Comment on above: Performed By: #### Lizzette GARCIA, VITAD #### [facility] [address] [place] [address] Dr. Dario Umaña MANUAL DIFF REQ NO Normal [facility] Comment on above: Performed By: #### I RADHA, VITAD #### [facility] [address] [place] [address] Dr. Dario Umaña MCH (RBC) [Entitic mass] 29.3 pg Normal 26.7-34.0 [facility] [place] Comment on above: Performed By: #### I RADHA, VITAD #### [facility] [address] [place] [address] Dr. Dario Umaña MCHC (RBC) [Mass/Vol] 33.4 g/dL Normal 29.9-35.2 [facility] Comment on above: Performed By: #### Lizzette GARCIA, VITAD #### [facility] [address] [place] [address] Dr. Dario Umaña MCV (RBC) [Entitic vol] 87.7 fL Normal 81.0-99.0 [facility] [place] Comment on above: Performed By: #### Lizzette GARCIA VITAD #### [facility] [address] [place] [address] Dr. Dario Umaña MONO # 0.5 103/ul Normal 0.3-0.8 [facility] Comment on above: Performed By: #### Lizzette GARCIA VITAD #### [facility] [address] [place] [address] Dr. Dario Umaña Monocytes/100 WBC (Bld) 7.5 % Normal 1.7-12.0 [facility] [place] Comment on above: Performed By: #### Lizzette GARCIA VITAD #### [facility] [address] [place] [address] Dr. Dario Umaña NEUT # 3.2 103/ul Normal 1.4-6.5 [facility] Comment on above: Performed By: #### Lizzette GARCIA VITAD #### [facility] [address] [place] [address] Dr. Dario Umaña Neutrophils/100 WBC (Bld) 47.8 % Normal 43.0-75.0 [facility] [place] Comment on above: Performed By: #### Lizzette GARCIA VITAD #### [facility] [address] [place] [address] Dr. Dario Umaña Platelet mean volume (Bld) [Entitic vol] 8.7 fL Critically low 9.5-13.5 [facility] Comment on above: Performed By: #### I RADHA, VITAD #### [facility] [address] [address] [address] Dario Umaña PLT 200 103/ul Normal 150-450 [facility] Comment on above: Performed By: #### I RADHA, VITAD #### [facility] [address] [address] [address] Dario Umaña RBC 4.57 106/ul Normal 4.20-5.40 [facility] [place] Comment on above: Performed By: #### I RADHA VITAD #### [facility] [address] [place] [address] Dr. Dario Umaña WBC 6.6 103/ul Normal 4.0-11.0 [facility] [place] Comment on above: Performed By: #### Lizzette GARCIA VITAD #### [facility] [address] [place] [address] ABD/PELV W CONon 11-12-19 CT ABD/PELV W CON EXAMINATION: CT ABD/PELV W CON HISTORY: Essential hypertension COMPARISON: None. [...] Spleen: Unremarkable. Adrenal Glands: Unremarkable. Kidneys: Unremarkable. Gastrointestinal/Per itoneum: No acute abnormality. Mild colonic diverticulosis is [...] and neural foramina. Electronically authenticated by: ASYA PLUMMER Date: 2022-11-11 10:01 Normal [facility] FREE THYROXINE INDEX T7on FTI 3.30 Normal 1.30-4.50 [facility] [place] Comment on above: Performed By: #### C MP, TSH, LIPID, T7 #### [facility] [address] [address] [address] Dario Umaña T3U 33.0 % Normal 30.0-39.0 [facility] [place] Comment on above: Performed By: #### C MP, TSH, LIPID, T7 #### [facility] [address] [place] [address] Dr. Dario Umaña T4 [Mass/Vol] 10.00 ug/dL Normal 4.80-13.90 [facility] Comment on above: Performed By: #### C MP, TSH, LIPID, T7 #### [facility] [address] [address] [address] Dario Umaña GLYCOHEMOGLOBIN A1Con 2022 ADA RECOMMENDATION SEE BELOW Normal [facility] Comment on above: Result Comment: ADA RECOMMENDED LIMIT 4.0 - 6.0 ADA THERAPEUTIC TARGET < 7.0 ACTION SUGGESTED > 7.0 Performed By: #### A 1C #### [facility] [address] [address] [address] Dario Umaña Glucose [Mass/Vol] 123 mg/dL Normal [facility] Comment on above: Performed By: #### A 1C #### [facility] [address] [place] [address] Dr. Dario Umaña HbA1c (Bld) [Mass fraction] 5.9 % Normal 4.5-6.2 [facility] [place] Comment on above: Performed By: #### A 1C #### [facility] [address] [place] [address] Dr. Dario Umaña IRONon 11-11-2022 Iron [Mass/Vol] 92.0 ug/dL Normal 50.0-170.0 [facility] Comment on above: Performed By: #### I VALENTINO GARCIA #### [facility] [address] [address] [address] Dario Umaña LIPID PROFILEon 11-11-2022 CHOL-HDL RATIO NORM SEE BELOW Normal [facility] Comment on above: Result Comment: 3.3 - 4.4 LOW RISK 4.4 - 7.1 AVERAGE RISK 7.1 - 11.0 MODERATE RISK >11.0 HIGH RISK Performed By: #### C MP, TSH, LIPID, T7 #### [facility] [address] [address] [address] Dario Umaña Cholesterol [Mass/Vol] 174 mg/dL Normal <=200 [facility] [place] Comment on above: Performed By: #### C MP, TSH, LIPID, T7 #### [facility] [address] [place] [address] Dr. Dario Umaña Cholesterol in HDL [Mass/Vol] 55 mg/dL Normal 40-60 [facility] [place] Comment on above: Performed By: #### C MP, TSH, LIPID, T7 #### [facility] [address] [place] [address] Dr. Dario Umaña Cholesterol in LDL [Mass/Vol] 91.2 mg/dL Normal [facility] [place] Comment on above: Performed By: #### C MP, TSH, LIPID, T7 #### [facility] [address] [place] [address] Dr. Dario Umaña Cholesterol.total/Cho lesterol in HDL [Mass ratio] 3.2 {ratio} Normal [facility] [place] Comment on above: Performed By: #### C MP, TSH, LIPID, T7 #### [facility] [address] [place] [address] Dr. Dario Umaña HDL NORMAL > or = 60 mg/dl - LOW CARDIOVASCULAR RISK <40 mg/dl - HIGH CARDIOVASCULAR RISK Normal [facility] [place] Comment on above: Performed By: #### C MP, TSH, LIPID, T7 #### [facility] [address] [place] [address] Dr. Dario Umaña LDL CALC NORMAL SEE BELOW Normal [facility] Comment on above: Result Comment: <100 mg/dl OPTIMAL 100 - 129 mg/dl NEAR OR ABOVE OPTIMAL 130 - 159 mg/dl BORDERLINE HIGH 160 - 189 mg/dl HIGH >190 mg/dl VERY HIGH Performed By: #### C MP, TSH, LIPID, T7 #### [facility] [address] [place], [place] [address] Dr. Dario Umaña Triglyceride [Mass/Vol] 139 mg/dL Normal <=150 [facility] [place] Comment on above: Performed By: #### C MP, TSH, LIPID, T7 #### [facility] [address] [place], [place] [address] Dr. Dario Umaña VLDL CALC 27.8 mg/dL Normal [facility] Comment on above: Performed By: #### C MP, TSH, LIPID, T7 #### [facility] [address] [place], [place] [address] Dr. Dario Umaña MG MAMM SCREEN 3D LUBNA CADon 11-11-2022 MG MAMM SCREEN 3D LUBNA CAD Patient: GRICELDA LOPEZ Exam Date: 11/11/2022 : 1955 Gender:F Ordering : DR SINAN HILL . Admission #: [id number] Family : Order #: [id number] CLICK HERE TO VIEW EXAM RADIOLOGY REPORT [...] Treatments None Family Cancers None LOCATION: [facility] BREAST COMPOSITION: Almost entirely fatty. FINDINGS: DIAGNOSTIC [...] Baldwin M.D. on 11/11/2022 at 16:48 Normal [facility] [place] PROF 14(COMP METB)on 023 Albumin [Mass/Vol] 3.9 g/dL Normal 3.4-5.0 [facility] Comment on above: Performed By: #### C MP, TSH, LIPID, T7 #### [facility] [address] [address] [address] Dario Umaña Albumin/Globulin [Mass ratio] 1.1 {ratio} Normal [facility] [place] Comment on above: Performed By: #### C MP, TSH, LIPID, T7 #### [facility] [address] [address] [address] Dario Umaña ALP [Catalytic activity/Vol] 76 U/L Normal 46-116 [facility] [place] Comment on above: Performed By: #### C MP, TSH, LIPID, T7 #### [facility] [address] [address] [address] Dario Umaña ALT [Catalytic activity/Vol] 38 U/L Normal 14-59 [facility] [place] Comment on above: Performed By: #### C MP, TSH, LIPID, T7 #### [facility] [address] [address] [address] Dario Umaña Anion gap [Moles/Vol] 15.8 mmol/L Normal [facility] Comment on above: Performed By: #### C MP, TSH, LIPID, T7 #### [facility] [address] [address] [address] Dario Umaña AST [Catalytic activity/Vol] 21 U/L Normal 15-37 [facility] [place] Comment on above: Performed By: #### C MP, TSH, LIPID, T7 #### [facility] [address] [address] [address] Dario Umaña Bilirubin [Mass/Vol] 0.5 mg/dL Normal 0.2-1.0 [facility] [place] Comment on above: Performed By: #### C MP, TSH, LIPID, T7 #### [facility] [address] [address] [address] Dario Umaña Calcium [Mass/Vol] 9.0 mg/dL Normal 8.5-10.1 [facility] Comment on above: Performed By: #### C MP, TSH, LIPID, T7 #### [facility] [address] [address] [address] Dario Umaña Chloride [Moles/Vol] 105 mmol/L Normal 98-107 [facility] [place] Comment on above: Performed By: #### C MP, TSH, LIPID, T7 #### [facility] [address] [address] [address] Dario Umaña CO2 [Moles/Vol] 22.6 mmol/L Normal 21.0-32.0 [facility] Comment on above: Performed By: #### C MP, TSH, LIPID, T7 #### [facility] [address] [place] [address] Dr. Dario Umaña Creatinine [Mass/Vol] 0.89 mg/dL Normal 0.55-1.02 [facility] [place] Comment on above: Performed By: #### C MP, TSH, LIPID, T7 #### [facility] [address] [place] [address] Dr. Dario Umaña EGFR-AF TOGOLESE >60 Normal >=60 [facility] Comment on above: Performed By: #### C MP, TSH, LIPID, T7 #### [facility] [address] [place] [address] Dr. Dario Umaña EGFR-NON AF TOGOLESE >60 Normal >=60 [facility] [place] Comment on above: Performed By: #### C MP, TSH, LIPID, T7 #### [facility] [address] [address] [address] Dario Umaña Globulin (S) [Mass/Vol] 3.6 g/dL Normal [facility] [place] Comment on above: Performed By: #### C MP, TSH, LIPID, T7 #### [facility] [address] [address] [address] Dario Umaña Glucose [Mass/Vol] 120 mg/dL Critically high 74-106 T [facility] Comment on above: Performed By: #### C MP, TSH, LIPID, T7 #### [facility] [address] [address] [address] Dario Umaña Potassium [Moles/Vol] 4.4 mmol/L Normal 3.5-5.1 [facility] [place] Comment on above: Performed By: #### C MP, TSH, LIPID, T7 #### [facility] [address] [place] [address] Dr. Dario Umaña Protein [Mass/Vol] 7.5 g/dL Normal 6.4-8.2 [facility] Comment on above: Performed By: #### C MP, TSH, LIPID, T7 #### [facility] [address] [place] [address] Dr. Dario Umaña Sodium [Moles/Vol] 139 mmol/L Normal 136-145 [facility] Comment on above: Performed By: #### C MP, TSH, LIPID, T7 #### [facility] [address] [place] [address] Dr. Dario Umaña Urea nitrogen [Mass/Vol] 16.0 mg/dL Normal 7.0-18.0 [facility] [place] Comment on above: Performed By: #### C MP, TSH, LIPID, T7 #### [facility] [address] [place] [address] Dr. Dario Umaña Urea nitrogen/Creatinine [Mass ratio] 18.0 mg/mg Normal [facility] [place] Comment on above: Performed By: #### C MP, TSH, LIPID, T7 #### [facility] [address] [place] [address] Dr. Dario Umaña TSHon 11-11-2022 TSH 3.151 uIU/mL Normal 0.358-3.740 [facility] Comment on above: Performed By: #### C MP, TSH, LIPID, T7 #### [facility] [address] [place] [address] Dr. Dario Umaña UA RANDOMon 11-11-2022 Bilirubin Ql (U) Negative Normal NEGATIVE [facility] Comment on above: Performed By: #### U A #### [facility] [address] [place] [address] Dr. Dario Umaña Clarity (U) CLEAR Normal CLEAR [facility] Comment on above: Performed By: #### U A #### [facility] [address] [place] [address] Dr. Dario Umaña Color (U) LT. YELLOW Normal YELLOW [facility] Comment on above: Performed By: #### U A #### [facility] [address] [place] [address] Dr. Dario Umaña Glucose Ql (U) Negative Normal NEGATIVE [facility] Comment on above: Performed By: #### U A #### [facility] [address] [place] [address] Dr. Dario Umaña Hemoglobin Ql (U) Negative Normal NEGATIVE [facility] Comment on above: Performed By: #### U A #### [facility] [address] [place] [address] Dr. Dario Umaña Ketones Ql (U) Negative Normal NEGATIVE [facility] Comment on above: Performed By: #### U A #### [facility] [address] [place] [address] Dr. Dario Umaña LEUKOCYTES MODERATE Abnormal NEGATIVE [facility] Comment on above: Performed By: #### U A #### [facility] [address] [place] [address] Dr. Dario Umaña Nitrite Ql (U) Positive Abnormal NEGATIVE [facility] Comment on above: Performed By: #### U A #### [facility] [address] [place] [address] Dr. Dario Umaña pH (U) 5.5 [pH] Normal 5-9 [facility] Comment on above: Performed By: #### U A #### [facility] [address] [place] [address] Dr. Dario Umaña SPEC GRAVITY 1.025 Normal 1.005-<=1.025 [facility] Comment on above: Performed By: #### U A #### [facility] [address] [place] [address] Dr. Dario Umaña UA PROTEIN Negative Normal NEGATIVE/ TRACE [facility] Comment on above: Performed By: #### U A #### [facility] [address] [place] [address] Dr. Dario Umaña Urobilinogen Qn (U) 0.2 {German'U}/dL Normal 0.2 - 1. 0 [facility] [place] Comment on above: Performed By: #### U A #### [facility] [address] [place] [address] Dr. Dario Umaña VITAMIN D 25 OHon 11-11-2022 VIT D 25-OH 71.1 ng/mL Normal [facility] Comment on above: Performed By: #### I RADHA VITAD #### [facility] [address] [place] [address] Dr. Dario Umaña VIT D RANGES SEE BELOW Normal [facility] [place] Comment on above: Result Comment: <20 ng/mL Vit D deficient 20 - <30 ng/mL Vit D insufficient 30 - 100 ng/mL Vit D sufficient >100 ng/mL Potential Toxicity Performed By: #### I RADHA VITAD #### [facility] [address] [place] [address] Dr. Dario Umaña Superficial Wound Cultureon 10-22-2022 Superficial Wound Culture ORGANISM: Proteus vulgaris group (O:PROVULGRP) Quantity of Growth Moderate Growth Aerobic BENEDICTO Charge (NMIC56) ----- SUSCEPTIBILITY ---- ORGANISM: O:PROVULGRP ANTIBIOTIC INTERPRETATION BENEDICTO Amikacin S <16 Amoxacillin/K Clavulanate S <8 Ampicillin/Sulbactam S 88/4 Aztreonam S <4 Cefepime S <2 Ceftazidime S <1 Ceftriaxone S <1 Ciprofloxacin S <0.25 Ertapenem S <0.5 Gentamicin S <2 Levofloxacin S <0.5 Meropenem S <1 Piperacillin/Tazobac monte S <8 Tobramycin S <2 Trimethoprim/Sulfame thoxazole S <0.5 S = SUSCEPTIBLE I = [...] RESISTANT TO ALL B-LACTAM DRUGS. PERFORMED BY: [place] [address] PATHOLOGIST BONE PULLER DORETHA BLOOD M.D. Normal [facility] Comment on above: Performed By: #### C USUP #### [place] [id number] [facility] Physician Referralon [facility] Physician Referral [phone] [id number] #[id number] [facility] Encounters Encounter Date Encounter Type Care Provider Facility Start: 11-11-[address] SINAN HILL . Facili ty:H1 Start: 10-22-2022 End: 10-22-2022 ambulatory Christophe Louis Facility:[facility] Start: 10-22-2022 End: 10-22-2022 ambulatory MD Christophe Louis Work Phone: [facility] Work Phone: Start: 10-22-2022 End: 10-22-2022 Patient encounter procedure MD Christophe Louis Work Phone: [facility] [place] Work Phone: Plan of Treatment Date Care Activity Detail Author Start: 10-22-2022 Superficial Wound Culture Superficial Wound Culture [facility] Bacteria identified in Unspecified specimen by Aerobe culture [facility] Payers Date Payer Category Payer Self-pay 1958 Medicare [id number] 1955 Unknown [id number] Unknown [id number] Social History Date Type Detail Facility Tobacco smoking stat us NHIS Unknown if ever smoked [facility] Work Phone: Start: 1955 Sex Assigned At Female F [facility] Evaluation note Note Date & Type Note Facility Evaluation note No assessment information availa ble [facility] Work Phone: Summary Purpose Family History No Family History Records FoundNo Family History Records FoundNo Family History Records Found Advance Directives No Advanced Directives Records FoundNo Advanced Directives Records FoundNo Advanced Directives Records Found Additional Source Comments INFORMATION SOURCE (unrecogn ized section and content) DATE CREATED AUTHOR 03/07/2021 Carranza Jeanmarie [facility] DATE CREATED AUTHOR AUTHOR'S ORGANIZ ATION 11/20/2022 [facility] DATE CREATED AUTHOR AUTHOR'S ORGANIZ ATION 03/20/2023 [facility] Care Teams (unrecognized sec tion and content) [...] BE BASED ON THE PRIMARY CLINICAL RECORDS. [employer] [facility]. provides no warranty or guarantee of the accuracy or completeness of information in this document.
== END 2023-06-03 08:00 | disposition home or self-care (01) ==
LOC: CARD 07:59
PROVIDERS: PCP Family Medicine; Visit Provider Family Medicine
DX: J21.9 Acute bronchiolitis, unspecified (principal); R07.9 Chest pain, unspecified
CPT/HCPCS: 93246

== ENCOUNTER 2023-06-21 07:59 | Outpatient (OUT) | payer MEDICARE, SELFPAY ==
--- NOTE | 2023-06-21 | PCN_ITS ---
CARDIAC STRESS TEST Requesting Physician: Procedure Date: 06/21/2023 This was a treadmill exercise stress test with myocardial perfusion imaging performed at the [facility] on 06/21/2023. Informed consent was obtained. The patient was attached to electrocardiographic monitoring and an intravenous line was secured. Resting vital signs and ECG were obtained. The patient exercised on the treadmill according to the Matteo protocol for 3 minutes and 23 seconds and reached stage 2 of the protocol and achieved 5.5 METS. Resting heart rate was 79 BPM. Maximum heart rate was 150 BPM, representing 97% of maximal predicted heart rate. Resting blood pressure was 118/80 and maximum blood pressure was 192/84. Cardiolite was injected at peak exercise. The patient went on to obtain myocardial perfusion imaging. Resting ECG showed sinus rhythm with no ischemic changes. ECG during exercise showed evidence of sinus tachycardia with upsloping ST changes but no ischemic ST changes seen. Final ECG showed evidence of sinus rhythm with no ischemic changes. There were no arrhythmias. The patient had shortness of breath and muscle fatigue with exercise, as well as mild chest discomfort. SUMMARY OF THE FINDINGS: 1. No evidence of ischemic ST changes during treadmill exercise stress test. 2. Beaulieu treadmill score of +3 is associated with intermediate risk for skilled nursing cardiac events. 3. No blood pressure at rest with hypertensive response to exercise. 4. Reduced functional capacity. 5. Myocardial perfusion imaging will be reported separately. LAVON
--- NOTE | 2023-06-21 07:50 | NM_ITS ---
Patient Name: GRICELDA LOPEZ MR#: [id number] : 1955 Exam Date: 06/21/2023 Ordering Doctor: DR Michael Kendrick . RADIOLOGY REPORT PROCEDURE: NM LAST PERF SPECT REST STR COMPARISON: None. INDICATIONS: CHEST PAIN TECHNIQUE: Exam Description: Rest/Stress one day protocol gated SPECT Rest Imagin.3 mCi Tc-99m Cardiolite IV on 06/21/2023 Stress Imaging 30.9 mCi Tc-99m Cardiolite IV on 06/21/2023 Exercise Protocol: Matteo Heart Rate (bpm): Rest: 82 Max: 150 PMHR: 97 Blood Pressure: Rest: 118/80 Max: 192/84 Exercise Time: Minutes: 3 Seconds: 23 Stage Reached: Stage: 2 Mets 5.5 Symptoms: Rest and peak stress ECG findings were pending and the exercise portion of the study was pending per attending physician Dr. FAJARDO . For more details please see separate cardiac stress test report. FINDINGS: QUALITY OF STUDY: Good. PERFUSION DEFECT: LOCATION: Mid-anterior. Apical anterior. SIZE: Small (1-2 segments). SEVERITY: Mild. TYPE: Persistent. WALL MOTION: Normal. LV SIZE: Normal. 58 mL. TID / TCD: None; 0.8 LVEF: Normal. Calculated EF 78%. SUMMARY: Myocardial perfusion imaging study is NORMAL. CONCLUSION: Small area of decreased activity in the anterior wall on stress imaging, stable on rest imaging with no definite reversible ischemia Pending exercise test Dictated by: Jhonatan Moreno MD on 06/21/2023 at 11:23 Approved by: Jhonatan Moreno MD on 06/21/2023 at 11:35
== END 2023-06-21 08:00 | disposition home or self-care (01) ==
LOC: NM 07:59
PROVIDERS: PCP Family Medicine; Visit Provider Family Medicine
DX: J21.9 Acute bronchiolitis, unspecified (principal); R07.9 Chest pain, unspecified
CPT/HCPCS: 78452; 93017; A9500

== ENCOUNTER 2023-09-17 14:53 | Outpatient (OUT) | payer MEDICARE, SELFPAY ==
[2023-09-17 16:01] LABS: Bilirubin Urine NEGATIVE (NEGATIVE); Blood Urine MODERATE (NEGATIVE); Clarity Urine CLOUDY (CLEAR); Color Urine LT. YELLOW (YELLOW); Glucose Urine UA NEGATIVE (NEGATIVE); Ketones Urine NEGATIVE (NEGATIVE); Leukocyte Esterase Urine LARGE (NEGATIVE); Nitrite Urine POSITIVE (NEGATIVE); Protein Urine TRACE mg/dL (NEG/TRACE); Specific Gravity Urine 1.025 (1.005-1.025); Urobilinogen Urine 0.2 EU/dL (0.2-1.0); pH Urine 5.5 (5.0-9.0)
[2023-09-17 16:19] LABS: Bacteria Urine MODERATE #/HPF (NONE SEEN); Cast Seen? NONE SEEN #/LPF (NONE SEEN); Crystals Seen? None Seen #/HPF (None Seen); Mucus Urine NONE SEEN (NONE SEEN); Squamous Epithelial Cell Urine FEW #/LPF (NONE/RARE); WBC Urine >100 #/HPF (NONE SEEN)
== END 2023-09-17 14:54 | disposition home or self-care (01) ==
LOC: LAB 14:54
PROVIDERS: PCP Family Medicine; Visit Provider Family Medicine
DX: R30.0 Dysuria (principal)
CPT/HCPCS: 81001; 87086; 87150; 87186

== ENCOUNTER 2023-09-27 14:34 | Outpatient (OUT) | payer MEDICARE, SELFPAY ==
--- NOTE | 2023-09-27 14:37 | MR_ITS ---
The [address] [address] Patient Name: GRICELDA LOPEZ MRN: [facility]:[id number] date: 1955 Sex: F Assigned Patient Location: MRI Current Patient Location: MRI Accession/Order Number: [id number] Exam Date: 09/27/2023 14:55 Report Date: 09/27/2023 16:51 At the request of: SINAN HILL Procedure: MR head/brain wo con EXAM: MR head/brain wo con HISTORY: Memory Loss R41.3 COMPARISON: None. TECHNIQUE: MRI of the brain was performed without contrast. FINDINGS: There is no restricted diffusion to suggest acute infarct. There is no midline shift, mass effect, or abnormal extraaxial fluid collections. The cortical sulci and ventricular system are within normal limits. There is a couple of nonspecific scattered foci of T2/FLAIR signal abnormality in the left frontal white matter, likely related to chronic microvascular ischemia for this age. The major intracranial flow voids are visualized. The cerebellar tonsils are normal in position. The orbits are unremarkable. The paranasal sinuses show no air-fluid level. The mastoid air cells are clear. The calvarium and extracranial soft tissues are unremarkable. MR/MR head/brain wo con IMPRESSION: No acute intracranial abnormality. Mild chronic microvascular ischemic changes. No evidence to suggest a neurodegenerative process. Electronically authenticated by: NEVILLE FLEMING Date: 09/27/2023 16:51
== END 2023-09-27 14:35 | disposition home or self-care (01) ==
LOC: MRI 14:34
PROVIDERS: PCP Family Medicine; Visit Provider Family Medicine
DX: R41.3 Other amnesia (principal)
CPT/HCPCS: 70551

== ENCOUNTER 2023-12-20 14:04 | Outpatient (OUT) | payer MEDICARE, SELFPAY ==
--- NOTE | 2023-12-20 14:10 | XR_ITS ---
[address] [address] Patient Name: GRICELDA LOPEZ MRN: [id number] date: 1955 Sex: F Assigned Patient Location: [facility] Current Patient Location: Accession/Order Number: [id number] Exam Date: 12/20/2023 14:20 Report Date: 12/21/2023 08:09 At the request of: BROOKE MORENO Procedure: XR abdomen 1V EXAMINATION: XR abdomen 1V HISTORY: Recurrent Urinary Tract Infection N39.0 COMPARISON: No relevant comparison available. FINDINGS: BOWEL GAS PATTERN: No abnormal dilation or deviation. CALCIFICATIONS: None significant. 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
--- OUTSIDE RECORDS SUMMARY | 2023-12-20 14:24 | XMS_ITS | CCD ---
Author Organization [facility] Care Team Providers Care Cvir Tech Name Role Phone MD Christophe Louis Attending Provider [phone] DR SINAN JOHN Attending Unavailable SERGIO ., DR MENON Consulting Unavailable SERGIO Del Valle, DR MENON Primary Care Unavailable SERGIO Del Valle, DR MENON Admitting Unavailable Christophe Louis Attending Unavailable Christophe Louis Admitting Unavailable Sinan Kendrick Primary Care Physician DEVANG MORENO Attending Unavailab le Sinan Kendrick Referring Unavailable Allergies Allergy Classification Reported Allergen(s) Allergy Type Date of Onset Reaction(s) Facility (2 sources) Sulfonamides (Antibiotic); Translations: [sulfa drugs] Drug allergy Eruption of skin (disorder) [facility] Medications Current Medications Medication Drug Class(es) Dates Sig (Normalized) Sig (Original) lisinopril 10 mg oral tablet (1 source) Angiotensin Converting Enzyme Inhibitor Start: 03-07-2021 take 1 tablet by mouth once daily lisinopril 10 mg Tab 10 mg = 1 tab(s), Oral, Daily, Refills(s) 0 Start Date: 03/07/21 Status: Ordered metoprolol tartrate 50 mg oral tablet (1 source) beta-Adrenergic Antolin Start: 03-07-2021 take 1 tablet by mouth twice daily Metoprolol tartrate 50 mg Tab 50 mg = 1 tab(s), Oral, BID, Refills(s) 0 Start Date: 03/07/21 Status: Ordered oxybutynin chloride 5 mg oral tablet (1 source) Cholinergic Muscarinic Antagonist Start: 12-14-2023 oxybutynin 5 mg Tab 5 mg = 1 tab(s), Oral, PRN for urinary discomfort Start Date: 12/14/23 Status: Ordered Completed/Discontinued Medications Medication Drug Class(es) Dates Sig (Normalized) Sig (Original) estradiol 0.1 mg/ml vaginal cream (1 source) Estrogen Start: 12-14-2023 Estrace 0.1 mg/g Cream See Instructions, 42.5 gm, Refill(s) 6, apply 1gm vaginally w plunger and a pea-sized amount around the urethra w your finger nightly x 3 weeks then 3x per week thereafter, [facility]/pharmacy #[id number], 165, cm, 12/14/23 13:44:00 EDT, Height/Length Dosing, 95.6, kg, 12/14/23 13:44:00 EDT, Weight Dosing Start Date: 12/14/23 Status: Ordered Problems Problem Classification Problem Date Documented Date Episodic/Chronic Essential hypertension (1 source) Hypertensive disorder 12-14-2023 Chronic Genitourinary symptoms and ill-defined conditions (2 sources) Urge incontinence; Translations: [Urge incontinence of urine] Onset: 12-14-2023 Chronic Thyroid disorders (1 source) Hypothyroidism 12-14-2023 Chronic Unclassified (1 source) Local infection of the skin and subcutaneous tissue, unspecified; Translations: [Local infection of the skin and subcutaneous tissue, unspecified] Onset: 10-22-2022 Urinary tract infections (1 source) Urinary tract infectious disease; Translations: [Urinary tract infection, site not specified] Onset: 12-14-2023 Episodic Results Test Name Value Interpretation Reference Range Facility Ambulatory Visit Summaryon 0 12-14-2023 Ambulatory Visit Summary Ambulatory Visit Summary LAINE LOPEZ :1955 Visit Date:12/14/2023 Ambulatory Visit Instructions Your Diagnosis Recurrent UTI Urge urinary incontinence Tests Performed XR Abdomen 1 View -- Results Pending -- Please visit your patient portal for your results or contact your primary care physician. Your Care Team Attending Physician - TIFFANIE SIDDIQI, JULIA Taylor Primary Care Physician - Sinan Kendrick MD Referring Physician - Sinan Kendrick MD This Is Your Medications List Contact prescribing physician if questions or concerns albuterol (ProAir HFA) irbesartan (irbesartan 150 mg Tab) lisinopril (lisinopril 10 mg Tab) metoprolol (Metoprolol tartrate 50 mg Tab) oxybutynin (oxybutynin 5 mg Tab) Procedures Performed section, Tonsillectomy. Discharge Vitals Heart Rate (Peripheral) 77 Respiratory Rate 19 Blood Pressure 120/72 Height 165 cm Height 65 in Weight 95.6 kg Weight 210.32 lb BMI 35.11 What to do next You Need to Schedule the Following Appointments Follow Up with JULIA MORENO PA-C, URL When: Where: [address] [place] [address] Medications What How Much When Instructions Unchanged albuterol (ProAir HFA) 2 Puffs Inhalation Every 6 hours as needed for Shortness of breath or wheezing Contact prescribing physician if questions or concerns Unchanged irbesartan (irbesartan 150 mg Tab) 1 Tablets By Mouth Every day Contact prescribing physician if questions or concerns Unchanged lisinopril (lisinopril 10 mg Tab) 1 Tablets By Mouth Every day Contact prescribing physician if questions or concerns Unchanged metoprolol (Metoprolol tartrate 50 mg Tab) 1 Tablets By Mouth 2 times a day Contact prescribing physician if questions or concerns Unchanged oxybutynin (oxybutynin 5 mg Tab) 1 Tablets By Mouth As needed for for urinary discomfort Contact prescribing physician if questions or concerns Allergies sulfa drugs (Rash) Problems Ongoing - Any problem that you are currently receiving treatment for. Hypertension Hypothyroid Urge urinary incontinence Patient Survey You may receive a survey via text or e-mail asking about your office visit. Please share your experience with us by completing your survey. We appreciate your feedback and thank you for choosing us for your care. Education Materials Cystoscopy Cystoscopy is a procedure that is used to help diagnose and sometimes treat conditions that affect the lower urinary tract. The lower urinary tract includes the bladder and the urethra. The urethra is the tube that drains urine from the bladder. Cystoscopy is done using a thin, tube-shaped instrument with a light and camera at the end (cystoscope). The cystoscope may be hard or flexible, depending on the goal of the procedure. The cystoscope is inserted through the urethra, into the bladder. Cystoscopy may be recommended if you have: ? Urinary tract infections that keep coming back. ? Blood in the urine (hematuria). ? An inability to control when you urinate (urinary incontinence) or an overactive bladder. ? Unusual cells found in a urine sample. ? A blockage in the urethra, such as a urinary stone. ? Painful urination. ? An abnormality in the bladder found during an intravenous pyelogram (IVP) or CT scan. Cystoscopy may also be done to remove a sample of tissue to be examined under a microscope (biopsy). Tell a health care provider about: ? Any allergies you have. ? All medicines you are taking, including vitamins, herbs, eye drops, creams, and evtb-lli-kkbxwdk medicines. ? Any problems you or family members have had with anesthetic medicines. ? Any blood disorders you have. ? Any surgeries you have had. ? Any medical conditions you have. ? Whether you are or may be . What are the risks? Generally, this is a safe procedure. However, problems may occur, including: ? Infection. ? Bleeding. ? Allergic reactions to medicines. ? Damage to other structures or organs. What happens before the procedure? Medicines Ask your health care provider about: ? Changing or stopping your regular medicines. This is especially important if you are taking diabetes medicines or blood thinners. ? Taking medicines such as aspirin and ibuprofen. These medicines can thin your blood. Do not take these medicines unless your health care provider tells you to take them. ? Taking kmdv-vgs-yufdcwe medicines, vitamins, herbs, and supplements. Tests You may have an exam or testing, such as: ? X-rays of the bladder, urethra, or kidneys. ? CT scan of the abdomen or pelvis. ? Urine tests to check for signs of infection. General instructions ? Follow instructions from your health care provider about eating or drinking restrictions. ? Ask your health care provider what steps will be taken to help prevent infection. These steps (more content not included)... [facility] CBC AUTO DIFFon 11-11-2022 BASO # 0.0 103/ul Normal 0.0-0.1 [facility] Comment on above: Performed By: #### I VALENTINO GARCIA #### [facility] [address] [address] [address] Dario Umaña Basophils/100 WBC (Bld) 0.5 % Normal 0.2-2.0 [facility] Comment on above: Performed By: #### I VALENTINO GARCIA #### [facility] [address] [address] [address] Dario Umaña EO # 0.4 103/ul Normal 0.0-0.7 [facility] Comment on above: Performed By: #### I RADHA VITAD #### [facility] [address] [place] [address] Dr. Dario Umaña Eosinophils/100 WBC (Bld) 5.3 % Normal 0.9-7.0 [facility] Comment on above: Performed By: #### Lizzette GARCIA VITAD #### [facility] [address] [place] [address] Dr. Dario Umaña Erythrocyte distribution width (RBC) [Ratio] 12.3 % Normal 11.0-15.0 [facility] Comment on above: Performed By: #### Lizzette GARCIA VITAD #### [facility] [address] [place] [address] Dr. Dario Umaña Hematocrit (Bld) [Volume fraction] 40.1 % Normal 36.0-48.0 [facility] Comment on above: Performed By: #### Lizzette GARCIA VITAD #### [facility] [address] [place] [address] Dr. Dario Umaña Hemoglobin (Bld) [Mass/Vol] 13.4 g/dL Normal 12.0-16.0 [facility] Comment on above: Performed By: #### Lizzette GARCIA VITAD #### [facility] [address] [place] [address] Dr. Dario Umaña IG # 0.02 10e3/ul Normal 0.00-0.03 [facility] Comment on above: Performed By: #### Lizzette GARCIA VITAD #### [facility] [address] [place] [address] Dr. Dario Umaña IG % 0.3 % Normal 0.0-0.5 [facility] Comment on above: Performed By: #### I RADHA VITAD #### [facility] [address] [place] [address] Dr. Dario Umaña LYMPH # 2.6 103/ul Normal 1.2-3.8 [facility] Comment on above: Performed By: #### Lizzette GARCIA VITAD #### [facility] [address] [place] [address] Dr. Dario Umaña Lymphocytes/100 WBC (Bld) 38.6 % Normal 20.5-60.0 [facility] Comment on above: Performed By: #### I RADHA, VITAD #### [facility] [address] [place] [address] Dr. Dario Umaña MANUAL DIFF REQ NO Normal [facility] Comment on above: Performed By: #### I RADHA, VITAD #### [facility] [address] [place] [address] Dr. Dario Umaña MCH (RBC) [Entitic mass] 29.3 pg Normal 26.7-34.0 [facility] Comment on above: Performed By: #### I RADHA, VITAD #### [facility] [address] [place] [address] Dr. Dario Umaña MCHC (RBC) [Mass/Vol] 33.4 g/dL Normal 29.9-35.2 [facility] Comment on above: Performed By: #### I RADHA, VITAD #### [facility] [address] [place] [address] Dr. Dario Umaña MCV (RBC) [Entitic vol] 87.7 fL Normal 81.0-99.0 [facility] Comment on above: Performed By: #### I RADHA, VITAD #### [facility] [address] [place] [address] Dr. Dario Umaña MONO # 0.5 103/ul Normal 0.3-0.8 [facility] Comment on above: Performed By: #### I RADHA, VITAD #### [facility] [address] [place] [address] Dr. Dario Umaña Monocytes/100 WBC (Bld) 7.5 % Normal 1.7-12.0 [facility] Comment on above: Performed By: #### I RADHA, VITAD #### [facility] [address] [place] [address] Dr. Dario Umaña NEUT # 3.2 103/ul Normal 1.4-6.5 [facility] Comment on above: Performed By: #### I RADHA, VITAD #### [facility] [address] [place] [address] Dr. Dario Umaña Neutrophils/100 WBC (Bld) 47.8 % Normal 43.0-75.0 [facility] Comment on above: Performed By: #### I RADHA, VITAD #### [facility] [address] [place] [address] Dr. Dario Umaña Platelet mean volume (Bld) [Entitic vol] 8.7 fL Critically low 9.5-13.5 [facility] Comment on above: Performed By: #### I RADHA VITAD #### [facility] [address] [place] [address] Dr. Dario Umaña PLT 200 103/ul Normal 150-450 [facility] Comment on above: Performed By: #### I RADHA, VITAD #### [facility] [address] [place] [address] Dr. Dario Umaña RBC 4.57 106/ul Normal 4.20-5.40 [facility] Comment on above: Performed By: #### I RADHA, VITAD #### [facility] [address] [place] [address] Dr. Dario Umaña WBC 6.6 103/ul Normal 4.0-11.0 [facility] Comment on above: Performed By: #### I RADHA, VITAD #### [facility] [address] [place] [address] ABD/PELV W CONon 11-12-[address] ABD/PELV W CON EXAMINATION: CT ABD/PELV [...] ASYA PLUMMER Date: 2022-11-11 10:01 Normal [facility] FREE THYROXINE INDEX T7on FTI 3.30 Normal 1.30-4.50 [facility] Comment on above: Performed By: #### C MP, TSH, LIPID, T7 #### [facility] [address] [address] [address] Dario Umaña T3U 33.0 % Normal 30.0-39.0 [facility] Comment on above: Performed By: #### C MP, TSH, LIPID, T7 #### [facility] [address] [address] [address] Dario Umaña T4 [Mass/Vol] 10.00 ug/dL Normal 4.80-13.90 [facility] Comment on above: Performed By: #### C MP, TSH, LIPID, T7 #### [facility] [address] [address] [address] Dario Umaña GLYCOHEMOGLOBIN A1Con 2022 ADA RECOMMENDATION SEE BELOW Normal [facility] Comment on above: Result Comment: ADA RECOMMENDED LIMIT 4.0 - 6.0 ADA THERAPEUTIC TARGET < 7.0 ACTION SUGGESTED > 7.0 Performed By: #### A 1C #### [facility] [address] [place] [address] Dr. Dario Umaña Glucose [Mass/Vol] 123 mg/dL Normal [facility] Comment on above: Performed By: #### A 1C #### [facility] [address] [address] [address] Dario Umaña HbA1c (Bld) [Mass fraction] 5.9 % Normal 4.5-6.2 [facility] Comment on above: Performed By: #### A 1C #### [facility] [address] [place] [address] Dr. Dario Umaña IRONon 11-11-2022 Iron [Mass/Vol] 92.0 ug/dL Normal 50.0-170.0 [facility] Comment on above: Performed By: #### I VALENTINO GARCIA #### [facility] [address] [address] [address] Dario Umaña LIPID PROFILEon 11-11-2022 CHOL-HDL RATIO NORM SEE BELOW Normal [facility] Comment on above: Result Comment: 3.3 - 4.4 LOW RISK 4.4 - 7.1 AVERAGE RISK 7.1 - 11.0 MODERATE RISK >11.0 HIGH RISK Performed By: #### C MP, TSH, LIPID, T7 #### [facility] [address] [address] [address] Dario Umaña Cholesterol [Mass/Vol] 174 mg/dL Normal <=200 [facility] Comment on above: Performed By: #### C MP, TSH, LIPID, T7 #### [facility] [address] [place] [address] Dr. Dario Umaña Cholesterol in HDL [Mass/Vol] 55 mg/dL Normal 40-60 [facility] Comment on above: Performed By: #### C MP, TSH, LIPID, T7 #### [facility] [address] [address] [address] Dario Umaña Cholesterol in LDL [Mass/Vol] 91.2 mg/dL Normal [facility] Comment on above: Performed By: #### C MP, TSH, LIPID, T7 #### [facility] [address] [address] [address] Dario Umaña Cholesterol.total/Cho lesterol in HDL [Mass ratio] 3.2 {ratio} Normal [facility] Comment on above: Performed By: #### C MP, TSH, LIPID, T7 #### [facility] [address] [place], [place] [address] Dr. Dario Umaña HDL NORMAL > or = 60 mg/dl - LOW CARDIOVASCULAR RISK <40 mg/dl - HIGH CARDIOVASCULAR RISK Normal [facility] Comment on above: Performed By: #### C MP, TSH, LIPID, T7 #### [facility] [address] [place], [place] [address] Dr. Dario Umaña LDL CALC NORMAL SEE BELOW Normal [facility] Comment on above: Result Comment: <100 mg/dl OPTIMAL 100 - 129 mg/dl NEAR OR ABOVE OPTIMAL 130 - 159 mg/dl BORDERLINE HIGH 160 - 189 mg/dl HIGH >190 mg/dl VERY HIGH Performed By: #### C MP, TSH, LIPID, T7 #### [facility] [address] [address] [address] Dario Umaña Triglyceride [Mass/Vol] 139 mg/dL Normal <=150 [facility] Comment on above: Performed By: #### C MP, TSH, LIPID, T7 #### [facility] [address] [address] [address] Dario Umaña VLDL CALC 27.8 mg/dL Normal [facility] Comment on above: Performed By: #### C MP, TSH, LIPID, T7 #### [facility] [address] [address] [address] Dario Umaña MG MAMM SCREEN 3D LUBNA CADon 11-11-2022 MG MAMM SCREEN 3D LUBNA CAD Patient: LAINE LOPEZ Exam Date: 11/11/2022 : 1955 Gender:F Ordering : DR SINAN KENDRICK . Admission #: [id number] Family : Order #: [id number] CLICK HERE TO VIEW EXAM RADIOLOGY REPORT PROCEDURE: MAMMOGRAM SCREENING 3D BILATERAL CAD COMPARISON: MG MAMM SCREEN 3D LUBNA CAD, 02/06/2021. MG MAMM ULBNA SCRN W CAD DIG, 12/18/2014. DIGITIZED_MAMMO, 04/25/2010. DIGITIZED_MAMMO, 06/29/2008. INDICATIONS: Screening mammography Calculator Name NCI Breast Cancer Risk Assessment Tool 5 Year Breast Cancer Risk Not Reported. Lifetime Breast Cancer Risk Not Reported. Personal Breast Cancer No Personal Ovarian Cancer No Treatments None Family Cancers None LOCATION: [facility] BREAST COMPOSITION: Almost entirely fatty. FINDINGS: [...] Baldwin M.D. on 11/11/2022 at 16:48 Normal [facility] PROF 14(COMP METB)on 023 Albumin [Mass/Vol] 3.9 g/dL Normal 3.4-5.0 [facility] Comment on above: Performed By: #### C MP, TSH, LIPID, T7 #### [facility] [address] [address] [address] Dario Umaña Albumin/Globulin [Mass ratio] 1.1 {ratio} Normal [facility] Comment on above: Performed By: #### C MP, TSH, LIPID, T7 #### [facility] [address] [address] [address] Dario Umaña ALP [Catalytic activity/Vol] 76 U/L Normal 46-116 [facility] Comment on above: Performed By: #### C MP, TSH, LIPID, T7 #### [facility] [address] [address] [address] Dario Umaña ALT [Catalytic activity/Vol] 38 U/L Normal 14-59 [facility] Comment on above: Performed By: #### C MP, TSH, LIPID, T7 #### [facility] [address] [place], [place] [address] Dr. Dario Umaña Anion gap [Moles/Vol] 15.8 mmol/L Normal [facility] Comment on above: Performed By: #### C MP, TSH, LIPID, T7 #### [facility] [address] [place], [place] [address] Dr. Dario Umaña AST [Catalytic activity/Vol] 21 U/L Normal 15-37 [facility] Comment on above: Performed By: #### C MP, TSH, LIPID, T7 #### [facility] [address] [address] [address] Dario Umaña Bilirubin [Mass/Vol] 0.5 mg/dL Normal 0.2-1.0 [facility] Comment on above: Performed By: #### C MP, TSH, LIPID, T7 #### [facility] [address] [address] [address] Dario Umaña Calcium [Mass/Vol] 9.0 mg/dL Normal 8.5-10.1 [facility] Comment on above: Performed By: #### C MP, TSH, LIPID, T7 #### [facility] [address] [place] [address] Dr. Dario Umaña Chloride [Moles/Vol] 105 mmol/L Normal 98-107 [facility] Comment on above: Performed By: #### C MP, TSH, LIPID, T7 #### [facility] [address] [place] [address] Dr. Dario Umaña CO2 [Moles/Vol] 22.6 mmol/L Normal 21.0-32.0 [facility] Comment on above: Performed By: #### C MP, TSH, LIPID, T7 #### [facility] [address] [place] [address] Dr. Dario Umaña Creatinine [Mass/Vol] 0.89 mg/dL Normal 0.55-1.02 [facility] Comment on above: Performed By: #### C MP, TSH, LIPID, T7 #### [facility] [address] [place] [address] Dr. Dario Umaña EGFR-AF MOSOTHO >60 Normal >=60 [facility] Comment on above: Performed By: #### C MP, TSH, LIPID, T7 #### [facility] [address] [place] [address] Dr. Dario Umaña EGFR-NON AF MOSOTHO >60 Normal >=60 [facility] Comment on above: Performed By: #### C MP, TSH, LIPID, T7 #### [facility] [address] [place] [address] Dr. Dario Umaña Globulin (S) [Mass/Vol] 3.6 g/dL Normal [facility] Comment on above: Performed By: #### C MP, TSH, LIPID, T7 #### [facility] [address] [address] [address] Dario Umaña Glucose [Mass/Vol] 120 mg/dL Critically high 74-106 [facility] Comment on above: Performed By: #### C MP, TSH, LIPID, T7 #### [facility] [address] [address] [address] Dario Umaña Potassium [Moles/Vol] 4.4 mmol/L Normal 3.5-5.1 [facility] Comment on above: Performed By: #### C MP, TSH, LIPID, T7 #### [facility] [address] [place] [address] Dr. Dario Umaña Protein [Mass/Vol] 7.5 g/dL Normal 6.4-8.2 [facility] Comment on above: Performed By: #### C MP, TSH, LIPID, T7 #### [facility] [address] [address] [address] Dario Umaña Sodium [Moles/Vol] 139 mmol/L Normal 136-145 [facility] Comment on above: Performed By: #### C MP, TSH, LIPID, T7 #### [facility] [address] [place] [address] Dr. Dario Umaña Urea nitrogen [Mass/Vol] 16.0 mg/dL Normal 7.0-18.0 [facility] Comment on above: Performed By: #### C MP, TSH, LIPID, T7 #### [facility] [address] [place] [address] Dr. Dario Umaña Urea nitrogen/Creatinine [Mass ratio] 18.0 mg/mg Normal [facility] Comment on above: Performed By: #### C MP, TSH, LIPID, T7 #### [facility] [address] [place] [address] Dr. Dario Umaña TSHon 11-11-2022 TSH 3.151 uIU/mL Normal 0.358-3.[address] [facility] Comment on above: Performed By: #### C MP, TSH, LIPID, T7 #### [facility] [address] [place] [address] Dr. Dario Umaña UA RANDOMon 11-11-2022 Bilirubin Ql (U) Negative Normal NEGATIVE [facility] Comment on above: Performed By: #### U A #### [facility] [address] [place] [address] Dr. Dario Umaña Clarity (U) CLEAR Normal CLEAR [facility] Comment on above: Performed By: #### U A #### [facility] [address] [place] [address] Dr. Dario Umaña Color (U) LT. YELLOW Normal YELLOW [facility] Comment on above: Performed By: #### U A #### [facility] [address] [place] [address] Dr. Dario Umaña Glucose Ql (U) Negative Normal NEGATIVE [facility] Comment on above: Performed By: #### U A #### [facility] [address] [place] [address] Dr. Dario Umaña Hemoglobin Ql (U) Negative Normal NEGATIVE [facility] Comment on above: Performed By: #### U A #### [facility] [address] [place] [address] Dr. Dario Umaña Ketones Ql (U) Negative Normal NEGATIVE [facility] Comment on above: Performed By: #### U A #### [facility] [address] [place] [address] Dr. Dario Umaña LEUKOCYTES MODERATE Abnormal NEGATIVE [facility] Comment on above: Performed By: #### U A #### [facility] [address] [place] [address] Dr. Dario Umaña Nitrite Ql (U) Positive Abnormal NEGATIVE [facility] Comment on above: Performed By: #### U A #### [facility] [address] [place] [address] Dr. Dario Umaña pH (U) 5.5 [pH] Normal 5-9 [facility] Comment on above: Performed By: #### U A #### [facility] [address] [place] [id number] Dr. Dario Umaña SPEC GRAVITY 1.025 Normal 1.005-<=1.025 [facility] Comment on above: Performed By: #### U A #### [facility] [address] [place] [address] Dr. Dario Umaña UA PROTEIN Negative Normal NEGATIVE/ TRACE [facility] Comment on above: Performed By: #### U A #### [facility] [address] [place] [address] Dr. Dario Umaña Urobilinogen Qn (U) 0.2 {German'U}/dL Normal 0.2 - 1. 0 [facility] Comment on above: Performed By: #### U A #### [facility] [address] [place] [address] Dr. Dario Umaña VITAMIN D 25 OHon 11-11-2022 VIT D 25-OH 71.1 ng/mL Normal [facility] Comment on above: Performed By: #### I RADHA VITAD #### [facility] [address] [place] [address] Dr. Dario Umaña VIT D RANGES SEE BELOW Normal [facility] Comment on above: Result Comment: <20 ng/mL Vit D deficient 20 - <30 ng/mL Vit D insufficient 30 - 100 ng/mL Vit D sufficient >100 ng/mL Potential Toxicity Performed By: #### I RADHA VITAD #### [facility] [address] [place] [address] Dr. Dario Umaña Superficial Wound Cultureon 10-22-2022 [...] RESISTANT TO ALL B-LACTAM DRUGS. PERFORMED BY: [place] [address] PATHOLOGIST BUDGET ASSISTANT DORETHA BLOOD M.D. [facility] Comment on above: Performed By: #### C USUP #### [address] Vital Signs Date Time Vital Sign Value Performing Clinician Lalit pablo 12-14-2023 13:09-0400 Blood Pressure Location JULIA MORENO [facility] 12-14-2023 13:09-0400 Diastolic blood pressure 72 mm[Hg] JULIA MORENO [facility] 12-14-2023 13:09-0400 Heart rate 77 /min JULIA MORENO [facility] 12-14-2023 13:09-0400 Respiratory rate 19 /min JULIA MORENO [facility] 12-14-2023 13:09-0400 Systolic blood pressure 120 mm[Hg] JULIA MORENO [facility] Encounters Encounter Date Encounter Type Care Provider Facility Start: 12-14-2023 End: 12-14-2023 ambulatory DEVANG MORENO Facility:[facility] Start: 12-14-2023 End: 12-14-2023 Patient encounter procedure JULIA MORENO [facility] Start: 09-17-2023 ambulatory DEVANG MORENO Fac ility:[facility] Start: 11-11-[address] SINAN KENDRICK . Facili ty:[facility] Start: 10-22-2022 End: 10-22-2022 ambulatory Christophe Louis Facility:[facility] Start: 10-22-2022 End: 10-22-2022 ambulatory MD Christophe Louis Work Phone: [facility] Work Phone: Start: 10-22-2022 End: 10-22-2022 Patient encounter procedure MD Christophe Louis Work Phone: [facility] [place] Work Phone: Procedures Date Procedure Procedure Detail Performing Clinician section JULIA RANGEL Tonsillectomy JULIA MORENO Plan of Treatment Date Care Activity Detail Author Start: 10-22-2022 Superficial Wound Culture Superficial Wound Culture [facility] Bacteria identified in Unspecified specimen by Aerobe culture [facility] Payers Date Payer Category Payer Self-pay 1958 Medicare [id number] 1955 Unknown [id number] 1955 Unknown [id number] 1955 Unknown [id number] Unknown [id number] Social History Date Type Detail Facility Tobacco smoking stat [facility] Unknown if ever smoked [facility] Work Phone: Start: 1955 Sex Assigned At Female F [facility] Start: 12-14-2023 Tobacco smoking status Never s moked tobacco (finding) [facility] Sex Assigned At Female [facility] Functional Status Date Assessment Result Facility 12-14-2023 Functional Status N/A [facility] Hospital Discharge instructions 12-14-2023 Note Date & Type Note Facility 12-14-2023 Hospital Discharg e instructions Patient Education 12/14/2023 14:02:22 Cystoscopy Cystoscopy Cystoscopy is a procedure that is used to help diagnose and sometimes treat conditions that affect the lower urinary tract. The lower urinary tract includes the bladder and the urethra. The urethra is the tube that drains urine from the bladder. Cystoscopy is done using a thin, tube-shaped instrument with a light and camera at the end (cystoscope). The cystoscope may be hard or flexible, depending on the goal of the procedure. The cystoscope is inserted through the urethra, into the bladder. Cystoscopy may be recommended if you have: Urinary tract infections that keep coming back. Blood in the urine (hematuria). An inability to control when you urinate (urinary incontinence) or an overactive bladder. Unusual cells found in a urine sample. A blockage in the urethra, such as a urinary stone. Painful urination. An abnormality in the bladder found during an intravenous pyelogram (IVP) or CT scan. Cystoscopy may also be done to remove a sample of tissue to be examined under a microscope (biopsy). Tell a health care provider about: Any allergies you have. All medicines you are taking, including vitamins, herbs, eye drops, creams, and gkaa-pno-xbveecy medicines. Any problems you or family members have had with anesthetic medicines. Any blood disorders you have. Any surgeries you have had. Any medical conditions you have. Whether you are or may be . What are the risks? Generally, this is a safe procedure. However, problems may occur, including: Infection. Bleeding. Allergic reactions to medicines. Damage to other structures or organs. What happens before the procedure? Medicines Ask your health care provider about: Changing or stopping your regular medicines. This is especially important if you are taking diabetes medicines or blood thinners. Taking medicines such as aspirin and ibuprofen. These medicines can thin your blood. Do not take these medicines unless your health care provider tells you to take them. Taking gpdh-ito-qntpyrg medicines, vitamins, herbs, and supplements. Tests You may have an exam or testing, such as: X-rays of the bladder, urethra, or kidneys. CT scan of the abdomen or pelvis. Urine tests to check for signs of infection. General instructions Follow instructions from your health care provider about eating or drinking restrictions. Ask your health care provider what steps will be taken to help prevent infection. These steps may include: ?Washing skin with a germ-killing soap. ?Taking antibiotic medicine. Plan to have a responsible adult take you home from the hospital or clinic. What happens during the procedure? You will be given one or more of the following: ?A medicine to help you relax (sedative). ?A medicine to numb the area (local anesthetic). The area around the opening of your urethra will be cleaned. The cystoscope will be passed through your urethra into your bladder. Germ-free (sterile) fluid will flow through the cystoscope to fill your bladder. The fluid will stretch your bladder so that your health care provider can clearly examine your bladder hilliard. Your doctor will look at the urethra and bladder. Your doctor may take a biopsy or remove stones. The cystoscope will be removed, and your bladder will be emptied. The procedure may vary among health care providers and hospitals. What can I expect after the procedure? After the procedure, it is common to have: Some soreness or pain in your abdomen and urethra. Urinary symptoms. These include: ?Mild pain or burning when you urinate. Pain should stop within a few minutes after you urinate. This may last for up to 1 week. ?A small amount of blood in your urine for several days. ?Feeling like you need to urinate but producing only a small amount of urine. Follow these instructions at home: Medicines Take wmwq-qsx-vbpjuaj and prescription medicines only as told by your health care provider. If you were prescribed an antibiotic medicine, take it as told by your health care provider. Do not stop taking the antibiotic even if you start to feel better. General instructions Return to your normal activities as told by your health care provider. Ask your health care provider what activities are safe for you. If you were given a sedative during the procedure, it can affect you for several hours. Do not drive or operate machinery until your health care provider says that it is safe. Watch for any blood in your urine. If the amount of blood in your urine increases, call your health care provider. Follow instructions from your health care provider about eating or drinking restrictions. If a tissue sample was removed for testing (biopsy) during your procedure, it is up to you to get your test results. Ask your health care provider, or the department that is doing the test, when your results will be ready. Drink enough fluid to keep your urine pale yellow. Keep all follow-up visits. This is important. Contact a health care provider if: You have pain that gets worse or does not get better with medicine, especially pain when you urinate. You have trouble urinating. You have more blood in your urine. Get help right away if: You have blood clots in your urine. You have abdominal pain. You have a fever or chills. You are unable to urinate. Summary Cystoscopy is a procedure that is used to help diagnose and sometimes treat conditions that affect the lower urinary tract. Cystoscopy is done using a thin, tube-shaped instrument with a light and camera at the end. After the procedure, it is common to have some soreness or pain in your abdomen and urethra. Watch for any blood in your urine. If the amount of blood in your urine increases, call your health care provider. If you were prescribed an antibiotic medicine, take it as told by your health care provider. Do not stop taking the antibiotic even if you start to feel better. This information is not intended to replace advice given to you by your health care provider. Make sure you discuss any questions you have with your health care provider. Document Revised: 02/11/2022 Document Reviewed: 01/10/2021 [employer] Patient Education 2022 [employer] 12/14/2023 13:54:20 Urinary Tract Infection, Adult Urinary Tract Infection, Adult A urinary tract infection (UTI) is an infection of any part of the urinary tract. The urinary tract includes the kidneys, ureters, bladder, and urethra. These organs make, store, and get rid of urine in the body. An upper UTI affects the ureters and kidneys. A lower UTI affects the bladder and urethra. What are the causes? Most urinary tract infections are caused by bacteria in your genital area around your urethra, where urine leaves your body. These bacteria grow and cause inflammation of your urinary tract. What increases the risk? You are more likely to develop this condition if: You have a urinary catheter that stays in place. You are not able to control when you urinate or have a bowel movement (incontinence). You are female and you: ?Use a spermicide or diaphragm for control. ?Have low estrogen levels. ?Are . You have certain genes that increase your risk. You are sexually active. You take antibiotic medicines. You have a condition that causes your flow of urine to slow down, such as: ?An enlarged prostate, if you are male. ?Blockage in your urethra. ?A kidney stone. ?A nerve condition that affects your bladder control (neurogenic bladder). ?Not getting enough to drink, or not urinating often. You have certain medical conditions, such as: ?Diabetes. ?A weak disease-fighting system (immunesystem). ?Sickle cell disease. ?Gout. ?Spinal cord injury. What are the signs or symptoms? Symptoms of this condition include: Needing to urinate right away (urgency). Frequent urination. This may include small amounts of urine each time you urinate. Pain or burning with urination. Blood in the urine. Urine that smells bad or unusual. Trouble urinating. Cloudy urine. Vaginal discharge, if you are female. Pain in the abdomen or the lower back. You may also have: Vomiting or a decreased appetite. Confusion. Irritability or tiredness. A fever or chills. Diarrhea. The first symptom in older adults may be confusion. In some cases, they may not have any symptoms until the infection has worsened. How is this diagnosed? This condition is diagnosed based on your medical history and a physical exam. You may also have other tests, including: Urine tests. Blood tests. Tests for STIs (sexually transmitted infections). If you have had more than one UTI, a cystoscopy or imaging studies may be done to determine the cause of the infections. How is this treated? Treatment for this condition includes: Antibiotic medicine. Bbpk-pzb-ahkfora medicines to treat discomfort. Drinking enough water to stay hydrated. If you have frequent infections or have other conditions such as a kidney stone, you may need to see a health care provider who specializes in the urinary tract (urologist). In rare cases, urinary tract infections can cause sepsis. Sepsis is a life-threatening condition that occurs when the body responds to an infection. Sepsis is treated in the hospital with IV antibiotics, fluids, and other medicines. Follow these instructions at home: Medicines Take uijs-enb-jvrunge and prescription medicines only as told by your health care provider. If you were prescribed an antibiotic medicine, take it as told by your health care provider. Do not stop using the antibiotic even if you start to feel better. General instructions Make sure you: ?Empty your bladder often and completely. Do not hold urine for long periods of time. ?Empty your bladder after sex. ?Wipe from front to back after urinating or having a bowel movement if you are female. Use each tissue only one time when you wipe. Drink enough fluid to keep your urine pale yellow. Keep all follow-up visits. This is important. Contact a health care provider if: Your symptoms do not get better after 1 2 days. Your symptoms go away and then return. Get help right away if: You have severe pain in your back or your lower abdomen. You have a fever or chills. You have nausea or vomiting. Summary A urinary tract infection (UTI) is an infection of any part of the urinary tract, which includes the kidneys, ureters, bladder, and urethra. Most urinary tract infections are caused by bacteria in your genital area. Treatment for this condition often includes antibiotic medicines. If you were prescribed an antibiotic medicine, take it as told by your health care provider. Do not stop using the antibiotic even if you start to feel better. Keep all follow-up visits. This is important. This information is not intended to replace advice given to you by your health care provider. Make sure you discuss any questions you have with your health care provider. Document Revised: 01/10/2021 Document Reviewed: 01/10/2021 [employer] Patient Education 2022 [employer]. Follow Up Care 09/21/2023 12:54:29 With:JULIA MORENO PA-C, URL Address: [address] [place] [address] When: Unknown [facility] Clinical Note 07-02-2024 Note Date & Type Note Facility 12-14-2023 Note Urology Office/Clini c Note Chief Complaint Dr. Kendrick referral HPI Staff Evaluation requested by Dr Sinan Kendrick due to recurrent UTI. Pt. is currency taking Levofloxacin 750mg Pt is a new pt. Never before seen in our office. (Verified on DA) KORI 03/31/23 CMP 03/26/23 *BUN 24.0 Crea 1.01 eGFR 55 C&S 02/01/23 >100k E Coli 03/08/23 >100k Citrobacter braakii 09/16/24 >100k E Coli Dysuria: no Incomplete bladder emptying: yes, PVR 88mL Hematuria: UA shows trace today. Pt. states before taking ABX here urine looked pink. Frequency: every 2 1/2 hours Urgency: yes, Pt. states 2-3x's a day she will have a bladder spasm and she will have to sit very still and wait to get up or she will leak. Nocturia: 1-2x's Stream: good stream Post void dripping: no Wearing pads/ Depends: yes, Pt. will use 1 pad a day Urge incontinence: occasionally Stress incontinence: no Incontinence without Sensory Awareness: no Abdominal pain: no Flank pain: Rt. flank pain History of Present Illness staff HPI reviewed and agree. Tests Reviewed: Reviewed UA, referral records, ucxs Review of Systems PHQ Score Initial Depression Screen Score: 0 SCORE no fever, chills, malaise, myalgia. no rash/lesions. no chest pain, palpitations, or SOB. no abdominal pain, nausea, vomiting. no unilateral calf swelling, redness, pain Physical Exam Vitals & Measurements HR: 77(Peripheral) RR: 19 BP: 120/72 HT: 65 in HT: 165 cm WT: 95.6 kg WT: 210.32 lb BMI: 35.11 General: nontoxic, NAD Mouth: moist mucosa Lungs: normal respiratory effort Cardio: regular rate, good distal perfusion Abdomen: nondistended, no suprapubic distention or tenderness, no CVA tenderness Neurologic: Grossly normal Skin: No rashes or suspicious lesions Assessment/Plan Laine is a 68 yo female new pt referred by Dr. Kendrick due to dysuria. CMP 03/26/23 BUN 24.0 Crea 1.01 eGFR 55 1. Recurrent UTI (N39.0: Urinary tract infection, site not specified) C&S: 02/01/23 >100k E Coli 03/08/23 >100k Citrobacter braakii 09/16/24 >100k E Coli most recent UTI ___currently on Levaquin for UTI per PCP UA in office today: mod leuks, trace hgb current UTI symptoms no UTI frequency almost every month UTIs started worsening past year Prior to that averaged UTIs very rarely pt's typical UTI sx include ____frequency, dysuria, cloudy, odor. occasionally pink urine w UTI. hx stones no KORI 03/31/23 - Mild L pelviectasis. Normal PVR. No stones. immunosuppressed no pre-diabetic post-menopausal/hysterectomy yes rena age 58 proper hygiene habits: wipes front to back every time yes avoids baths/hot tubs yes avoids scented [employer] products yes urinates after sexual activity n/a PVR 88ml Today we discussed the following methods to decrease frequency of UTIs: 1) Increase fluids. Aim for at least 2L daily. General bladder health reviewed and pt education provided. Bladder irritant list provided for pt to review. 2) We discussed that there is evidence that herbal supplements may help - cranberry, probiotics, and d-mannose. 3) check KUB to rule out stones as contributing factor to UTIs. 4) We will start pt on topical estrogen cream. Reasoning, side effects, risks/benefits discussed. Rx sent to pharmacy. 5) schedule cysto. The risks and benefits for cystoscopy have been discussed. The risks include bleeding, infection, and irritation of the bladder and urinary channel, among others. The patient, after being informed of procedural details and after questions have been answered, wishes to proceed. Full informed consent has been obtained. Will order Local anesthesia. Pt advised to contact our office w all future UTI sx so we can monitor urine cx results, treat appropriately (may require extended course abx), and monitor frequency of infections. Pt advised if develops fever, severe flank pain, vomiting - needs to go to ER. 2. Urge urinary incontinence (N39.41: Urge incontinence) PVR 88 cc. BBS 19. Taking Oxybutynin 5 mg bid prn. Baseline bladder control unknown due to recurrent UTIs x 1 yr - basically always infected or inflamed/healing. Resolve #1 then reassess. In meantime, work on kegels and reducing bladder irritants. Pt education provided. Follow-up With When Contact Information JULIA MORENO PA-C, [facility] [address] [place] [address] Additional Instructions: schedule cysto with possible UD, KUB Patient Education Cystoscopy Urinary Tract Infection, Adult Documentation recorded by the scribe Shayla Lane accurately reflects the services(s) I performed and decisions made by me. Authenticated by Julia Moreno PA-C on 12/14/2023 14:20:27. I, Shayla Lane, personally scribed for ANDREA Bean on 12/14/2023 14:06:33. . Problem List/Past Medical History Ongoing Hypertension Hypothyroid Urge urinary incontinence Historical No qualifying data Procedure/Surgical History Ce (more content not included)... [facility] Comment on above: Result Comment: Elec tronically Signed By: JULIA MORENO PA-C\.br\Date and Time Signed: 12/14/23 14:22 EDT\.br\Electronically Co-Signed By: Shayla Lane\.br\Date and Time Co-Signed: 12/14/23 14:08 EDT Clinical Note 12-14-2023 Note Date & Type Note Facility 12-14-2023 Note Patient Education Obstetrics and Gynecology Urinary Tract Infection, Adult A urinary tract infection (UTI) is an infection of any part of the urinary tract. The urinary tract includes the kidneys, ureters, bladder, and urethra. These organs make, store, and get rid of urine in the body. An upper UTI affects the ureters and kidneys. A lower UTI affects the bladder and urethra. What are the causes? Most urinary tract infections are caused by bacteria in your genital area around your urethra, where urine leaves your body. These bacteria grow and cause inflammation of your urinary tract. What increases the risk? You are more likely to develop this condition if: ? You have a urinary catheter that stays in place. ? You are not able to control when you urinate or have a bowel movement (incontinence). ? You are female and you: ? Use a spermicide or diaphragm for control. ? Have low estrogen levels. ? Are . ? You have certain genes that increase your risk. ? You are sexually active. ? You take antibiotic medicines. ? You have a condition that causes your flow of urine to slow down, such as: ? An enlarged prostate, if you are male. ? Blockage in your urethra. ? A kidney stone. ? A nerve condition that affects your bladder control (neurogenic bladder). ? Not getting enough to drink, or not urinating often. ? You have certain medical conditions, such as: ? Diabetes. ? A weak disease-fighting system (immunesystem). ? Sickle cell disease. ? Gout. ? Spinal cord injury. What are the signs or symptoms? Symptoms of this condition include: ? Needing to urinate right away (urgency). ? Frequent urination. This may include small amounts of urine each time you urinate. ? Pain or burning with urination. ? Blood in the urine. ? Urine that smells bad or unusual. ? Trouble urinating. ? Cloudy urine. ? Vaginal discharge, if you are female. ? Pain in the abdomen or the lower back. You may also have: ? Vomiting or a decreased appetite. ? Confusion. ? Irritability or tiredness. ? A fever or chills. ? Diarrhea. The first symptom in older adults may be confusion. In some cases, they may not have any symptoms until the infection has worsened. How is this diagnosed? This condition is diagnosed based on your medical history and a physical exam. You may also have other tests, including: ? Urine tests. ? Blood tests. ? Tests for STIs (sexually transmitted infections). If you have had more than one UTI, a cystoscopy or imaging studies may be done to determine the cause of the infections. How is this treated? Treatment for this condition includes: ? Antibiotic medicine. ? Qobu-rjw-modgkhf medicines to treat discomfort. ? Drinking enough water to stay hydrated. If you have frequent infections or have other conditions such as a kidney stone, you may need to see a health care provider who specializes in the urinary tract (urologist). In rare cases, urinary tract infections can cause sepsis. Sepsis is a life-threatening condition that occurs when the body responds to an infection. Sepsis is treated in the hospital with IV antibiotics, fluids, and other medicines. Follow these instructions at home: Medicines ? Take odwy-bwu-oytlgqj and prescription medicines only as told by your health care provider. ? If you were prescribed an antibiotic medicine, take it as told by your health care provider. Do not stop using the antibiotic even if you start to feel better. General instructions ? Make sure you: ? Empty your bladder often and completely. Do not hold urine for long periods of time. ? Empty your bladder after sex. ? Wipe from front to back after urinating or having a bowel movement if you are female. Use each tissue only one time when you wipe. ? Drink enough fluid to keep your urine pale yellow. ? Keep all follow-up visits. This is important. Contact a health care provider if: ? Your symptoms do not get better after 1?2 days. ? Your symptoms go away and then return. Get help right away if: ? You have severe pain in your back or your lower abdomen. ? You have a fever or chills. ? You have nausea or vomiting. Summary ? A urinary tract infection (UTI) is an infection of any part of the urinary tract, which includes the kidneys, ureters, bladder, and urethra. ? Most urinary tract infections are caused by bacteria in your genital area. ? Treatment for this condition often includes antibiotic medicines. ? If you were prescribed an antibiotic medicine, take it as told by your health care provider. Do not stop using the antibiotic even if you start to feel better. ? Keep all follow-up visits. This is important. This information is not intended to replace advice given to you by your health care provider. Make sure you discuss any questions you have with your health care provider. Document Revised: 01/10 (more content not included)... [facility] Evaluation + Plan note Note Date & Type Note Facility Evaluation + Plan note No data available for this section [facility] Evaluation note Note Date & Type Note Facility Evaluation note No assessment information availa [facility] Work Phone: Progress note Note Date & Type Note Facility Progress note No data available for this section [facility] Summary Purpose Family History No Family History Records FoundNo Family History Records Found No data available for this section No Family History Records Found Advance Directives No Advanced Directives Records FoundNo Advanced Directives Records FoundNo Advanced Directives Records Found Additional Source Comments Care Teams (unrecognized sec tion and content) Team Status: Inactive Member Role Status Dates Christophe Louis MD Attending Provider Active Goals (unrecognized section and content) Goals may be documented in a n alternate section No data available for this section INFORMATION SOURCE (unrecogn ized section and content) DATE CREATED AUTHOR 11/20/2022 [facility] DATE CREATED AUTHOR AUTHOR'S ORGANIZ ATION 03/20/2023 [facility] DATE CREATED AUTHOR AUTHOR'S ORGANIZ ATION 12/15/2023 [facility] FOR RECORDS PERTAINING TO PATIENTS WHO ARE [...] BE BASED ON THE PRIMARY CLINICAL RECORDS. [employer] [facility]. provides no warranty or guarantee of the accuracy or completeness of information in this document.
== END 2023-12-20 14:05 | disposition home or self-care (01) ==
LOC: RAD 14:05
PROVIDERS: PCP Family Medicine; Visit Provider Physician Assistant
DX: N39.0 Urinary tract infection, site not specified (principal)
CPT/HCPCS: 74018

== ENCOUNTER 2024-06-19 13:54 | Outpatient (OUT) | payer MEDICARE, SELFPAY ==
--- NOTE | 2024-06-19 13:57 | US_ITS ---
[address] [address] Patient Name: GRICELDA LOPEZ MRN: [id number] date: 1955 Sex: F Assigned Patient Location: US Current Patient Location: US Accession/Order Number: [id number] Exam Date: 06/19/2024 14:00 Report Date: 06/19/2024 14:30 At the request of: MARISSA PA Procedure: US renal BI EXAMINATION: US renal BI HISTORY: Recurrent Urinary Tract Infection COMPARISON: No relevant comparison available. TECHNIQUE: Ultrasound examination was performed of the bladder. FINDINGS: Right Kidney: Normal in size, contour and echotexture. No solid cortical mass, hydronephrosis or obstructing nephrolithiasis. Height: 4.23 cm Length: 10.94 cm Width: 5.71 cm Left Kidney: Normal in size, contour and echotexture. No solid cortical mass, hydronephrosis or obstructing nephrolithiasis. Height: 4.68 cm Length: 11.29 cm Width: 5.20 cm The urinary bladder is normal in appearance. 180 mL. Increase in hepatic echotexture suggests hepatic steatosis US/US renal BI IMPRESSION: No acute abnormality of the kidneys Electronically authenticated by: BRENT BENJAMIN Date: 06/19/2024 14:30
== END 2024-06-19 13:55 | disposition home or self-care (01) ==
LOC: US 13:55
PROVIDERS: PCP Family Medicine; Visit Provider Urology
DX: N39.0 Urinary tract infection, site not specified (principal)
CPT/HCPCS: 76775

== ENCOUNTER 2024-08-03 08:50 | Outpatient (OUT) | payer MEDICARE, SELFPAY ==
[2024-08-03 09:08] LABS: Basophils Absolute Auto 0.1 10^3/uL (0.0-0.1); Basophils Percent Auto 1.1 % (0.2-2.0); Eosinophils Absolute Auto 0.7 10^3/uL (0.0-0.7); Eosinophils Percent Auto 11.7 % (0.9-7.0); Hematocrit 41.4 % (36.0-48.0); Immature Granulocytes Abs Auto 0.01 10^3/uL (0.00-0.03); Immature Granulocytes Pct Auto 0.2 % (0.0-0.5); Lymphocytes Absolute Auto 1.6 10^3/uL (1.2-3.8); Lymphocytes Percent Auto 25.6 % (20.5-60.0); Mean Corpuscular HGB Conc 33.8 g/dL (29.9-35.2); Mean Corpuscular Hemoglobin 30.2 pg (26.7-34.0); Mean Corpuscular Volume 89.2 fL (81.0-99.0); Monocytes Absolute Auto 0.5 10^3/uL (0.3-0.8); Monocytes Percent Auto 7.8 % (1.7-12.0); Neutrophils Absolute Auto 3.3 10^3/uL (1.4-6.5); Neutrophils Percent Auto 53.6 % (43.0-75.0); Platelet Count 193 10^3/uL (150-450); Red Blood Count 4.64 10^6/uL (4.20-5.40); Red Cell Distribution Width 11.9 % (11.0-15.0); White Blood Count 6.2 10^3/uL (4.0-11.0)
[2024-08-03 09:52] LABS: Estimated Average Glucose 126 mg/dL
[2024-08-03 10:19] LABS: Alanine Aminotransferase 42 U/L (14-59); Albumin Globulin Ratio 0.9; Albumin Level 3.8 g/dL (3.4-5.0); Alkaline Phosphatase 73 U/L (46-116); Anion Gap 14.1; Aspartate Amino Transferase 28 U/L (15-37); BUN Creatinine Ratio 19.6; Bilirubin Total 0.9 mg/dL (0.2-1.0); Calcium 9.7 mg/dL (8.5-10.1); Carbon Dioxide 25.2 mmol/L (21.0-32.0); Chloride 103 mmol/L (98-107); Chol HDL Ratio 2.7; Cholesterol 156 mg/dL (<=200); Estimated GFR (African America >60 (>=60 mL/min/1.73m^2); Estimated GFR (Non-African Ame 54 (>=60 mL/min/1.73m^2); Free T3 4.29 pg/mL (2.18-3.98); Glucose 152 mg/dL (74-106); HDL Cholesterol 57 mg/dL (40-60); LDL Cholesterol Calculated 83.2 mg/dL; Potassium 4.3 mmol/L (3.5-5.1); Sodium 138 mmol/L (136-145); Total Protein 7.8 g/dL (6.4-8.2); Triglycerides 79 mg/dL (<=150); VLDL CHOLESTEROL 15.8 mg/dL
[2024-08-04 02:07] LABS: Insulin 77.2 uIU/mL (2.6-24.9)
== END 2024-08-03 08:51 | disposition home or self-care (01) ==
LOC: LAB 08:52
PROVIDERS: PCP Family Medicine; Visit Provider Family Medicine
DX: E78.5 Hyperlipidemia, unspecified (principal); E66.01 Morbid (severe) obesity due to excess calories; I10 Essential (primary) hypertension; R32 Unspecified urinary incontinence; E03.9 Hypothyroidism, unspecified; G47.33 Obstructive sleep apnea (adult) (pediatric); R53.83 Other fatigue; R73.09 Other abnormal glucose; D64.9 Anemia, unspecified; E55.9 Vitamin D deficiency, unspecified
CPT/HCPCS: 36415; 80053; 80061; 82306; 83036; 83525; 83540; 84436; 84443; 84481; 85025

== ENCOUNTER 2024-08-15 13:58 | Outpatient (OUT) | payer MEDICARE, SELFPAY ==
--- OUTSIDE RECORDS SUMMARY | 2024-08-15 14:03 | XMS_ITS | CCD ---
Author Organization [facility] Care Team Providers Care Ship Carpenter Name Role Phone MD Christophe Louis Attending Provider SERGIO ., DR MENON Attending Unavailable SERGIO ., DR MENON Consulting Unavailable SERGIO ., DR MENON Primary Care Unavailable SERGIO ., DR MENON Admitting Unavailable Christophe Louis Attending Unavailable Christophe Louis Admitting Unavailable Sinan Kendrick Primary Care Physician Audrey Booker Attending Unavailable AzuleAudrey Attending Unavailable Lue Audrey MIvon Admitting Unavailable Lue Audrey MIvon Attending Unavailable Azule Audrey MIvon Admitting Unavailable AzuleAudrey MIvon Attending Unavailable Audrey Booker Attending Unavailable Sinan Kendrick Referring Unavailable JULIA MORENO Attending Unavailable AzuleMargiehy MIvon Attending Unavailable Azule Audrey MIvon Referring Unavailable Azule Audrey MIvon Admitting Unavailable Flornida Chapa Attending Unavailable Florinda Chapa Admitting Unavailable Florinda Chapa Attending Unavailable Sinan Kendrick Referring Unavailable Gulshan VILLALOBOS Attending Unavailable Lue Audrey MIvon Attending Unavailable Azule Audrey MIvon Attending Unavailable JULIA MORENO Attending Unavailable JULIA MORENO E Admitting Unavailable Allergies Allergy Classification Reported Allergen(s) Allergy Type Date of Onset Reaction(s) Facility (19 sources) Sulfonamides (Antibiotic); Translations: [sulfa drugs] Drug allergy Eruption of skin (disorder) [facility] Medications Current Medications Medication Drug Class(es) Dates Sig (Normalized) Sig (Original) Albuterol (Eqv-ProAir HFA) 90 mcg/inh inhalation aerosol (3 sources) Start: 07-31-2024 Albuterol (Eqv-ProAir HFA) 90 mcg/inh inhalation aerosol 2 inh, Inhalation, q4hr Shortness of breath or wheezing, Refill(s) 0 Start Date: 07/31/24 Status: Ordered cephalexin 500 mg oral capsule (2 sources) Cephalosporin Antibacterial Start: 07-03-2024 End: 07-13-2024 take 1 capsule by mouth twice daily cephalexin 500 mg Cap 500 mg = 1 cap(s), Oral, BID, X 10 day(s), # 20 cap(s), Refills(s) 0, Pharmacy: [facility]/pharmacy #[id number], 165, cm, 05/31/24 9:21:00 EST, Height/Length Dosing, 95.6, kg, 05/31/24 9:21:00 EST, Weight Dosing Start Date: 07/03/24 Stop Date: 07/13/24 Status: Ordered ciprofloxacin 500 mg oral tablet (1 source) Quinolone Antimicrobial Start: 01-03-2024 End: 01-06-2024 take 1 tablet by mouth every twelve hours Cipro 500 mg Tab 500 mg = 1 tab(s), Oral, q12hr, X 3 day(s), # 6 tab(s), Refills(s) 0, Pharmacy: [facility]/pharmacy #[id number], 165, cm, 01/03/24 10:27:00 EDT, Height/Length Dosing, 95.6, kg, 01/03/24 10:27:00 EDT, Weight Dosing Start Date: 01/03/24 Stop Date: 01/06/24 Status: Ordered irbesartan 150 mg oral tablet (3 sources) Angiotensin 2 Receptor Antolin Start: 08-09-2024 take 1 tablet by mouth once daily irbesartan 150 mg Tab 150 mg = 1 tab(s), Oral, Daily, Refills(s) 0 Start Date: 08/09/24 Status: Ordered liothyronine sodium 0.005 mg oral tablet (10 sources) l-Triiodothyronine Start: 03-08-2024 take 2 tablets by mouth once daily liothyronine 5 mcg Tab 10 mcg = 2 tab(s), Oral, Daily Start Date: 03/08/24 Status: Ordered Start: 03-08-2024 take 1 tablet by chris th twice daily liothyronine 5 mcg Tab 5 mcg = 1 tab(s), Oral, BID Start Date: 03/08/24 Status: Ordered lisinopril 10 mg oral tablet (11 sources) Angiotensin Converting Enzyme Inhibitor Start: 03-07-2021 take 1 tablet by mouth once daily lisinopril 10 mg Tab 10 mg = 1 tab(s), Oral, Daily, Refills(s) 0 Start Date: 03/07/21 Status: Ordered methenamine hippurate 1000 mg oral tablet (6 sources) Start: 05-31-2024 End: 09-28-2024 take 1 tablet by mouth twice daily methenamine hippurate 1 g oral tablet 1 gm = 1 tab(s), Oral, BID, X 30 day(s), # 60 tab(s), Refills(s) 3, Pharmacy: [facility]/pharmacy #[id number], 165, cm, 05/31/24 9:21:00 EST, Height/Length Dosing, 95.6, kg, 05/31/24 9:21:00 EST, Weight Dosing Start Date: 05/31/24 Stop Date: 09/28/24 Status: Ordered metoprolol tartrate 50 mg oral tablet (14 sources) beta-Adrenergic Antolin Start: 03-07-2021 take 1 tablet by mouth twice daily Metoprolol tartrate 50 mg Tab 50 mg = 1 tab(s), Oral, BID, Refills(s) 0 Start Date: 03/07/21 Status: Ordered nitrofurantoin, macrocrystals 25 mg / nitrofurantoin, monohydrate 75 mg oral capsule (1 source) Nitrofuran Antibacterial Start: 05-29-2024 End: 06-03-2024 take 1 capsule by mouth twice daily Macrobid 100 mg Cap 100 mg = 1 cap(s), Oral, BID, X 5 day(s), # 10 cap(s), Refills(s) 0, Pharmacy: [facility]/pharmacy #[id number], 165, cm, 03/08/24 8:20:00 EDT, Height/Length Dosing, 95.6, kg, 03/08/24 8:20:00 EDT, Weight Dosing Start Date: 05/29/24 Stop Date: 06/03/24 Status: Ordered oxybutynin chloride 5 mg oral tablet (4 sources) Cholinergic Muscarinic Antagonist Start: 12-14-2023 oxybutynin 5 mg Tab 5 mg = 1 tab(s), Oral, PRN for urinary discomfort Start Date: 12/14/23 Status: Ordered trospium chloride 20 mg oral tablet (10 sources) Cholinergic Muscarinic Antagonist Start: 03-08-2024 take 1 tablet by mouth once daily in the evening trospium 20 mg oral tablet 20 mg = 1 tab(s), Oral, qPM, Nightly, # 30 tab(s), Refills(s) 11, [id number] 165, cm, 03/08/24 8:20:00 EDT, Height/Length Dosing, 95.6, kg, 03/08/24 8:20:00 EDT, Weight Dosing Start Date: 03/08/24 Status: Ordered Completed/Discontinued Medications Medication Drug Class(es) Dates Sig (Normalized) Sig (Original) estradiol 0.1 mg/ml vaginal cream (14 sources) Estrogen Start: 12-14-2023 Estrace 0.1 mg/g Cream See Instructions, 42.5 gm, Refill(s) 6, apply 1gm vaginally w plunger and a pea-sized amount around the urethra w your finger nightly x 3 weeks then 3x per week thereafter, [facility]/pharmacy #[id number], 165, cm, 12/14/23 13:44:00 EDT, Height/Length Dosing, 95.6, kg, 12/14/23 13:44:00 EDT, Weight Dosing Start Date: 12/14/23 Status: Ordered Problems Problem Classification Problem Date Documented Date Episodic/Chronic Diabetes mellitus without complication (3 sources) Diabetes mellitus 07-31-2024 Chronic Essential hypertension (14 sources) Hypertensive disorder 12-14-2023 Chronic Genitourinary symptoms and ill-defined conditions (19 sources) Urge incontinence; Translations: [Urge incontinence of urine] Onset: 12-14-2023 Chronic Genitourinary symptoms and ill-defined conditions (1 source) Genitourinary tract problem; Translations: [Unspecified symptoms and signs involving the genitourinary system] Onset: 01-27-2024 Episodic Other and unspecified benign neoplasm (4 sources) History of polyp of colon; Translations: [Personal history of adenomatous and serrated colon polyps] Onset: 08-09-2024 Episodic Other nutritional; endocrine; and metabolic disorders (3 sources) Body mass index 30+ - obesity 08-09-2024 Chronic Other nutritional; endocrine; and metabolic disorders (3 sources) Obesity caused by energy imbalance 07-31-2024 Chronic Residual codes; unclassified (10 sources) Obstructive sleep apnea syndrome 03-07-2024 Chronic Residual codes; unclassified (1 source) Family history of malignant neoplasm of digestive organ; Translations: [Family history of malignant neoplasm of digestive organs] Onset: 08-09-2024 Episodic Residual codes; unclassified (3 sources) Amnesia 07-31-2024 Episodic Residual codes; unclassified (3 sources) Family history of cancer of colon 08-09-2024 Episodic Spondylosis; intervertebral disc disorders; other back problems (3 sources) Cervical radiculopathy 07-31-2024 Episodic Thyroid disorders (14 sources) Hypothyroidism 12-14-2023 Chronic Unclassified (1 source) Local infection of the skin and subcutaneous tissue, unspecified; Translations: [Local infection of the skin and subcutaneous tissue, unspecified] Onset: 10-22-2022 Urinary tract infections (20 sources) Urinary tract infectious disease; Translations: [Urinary tract infection, site not specified] Onset: 12-14-2023 Episodic Results Test Name Value Interpretation Reference Range Facility C Urineon 08-11-2024 Bacteria identified Cx Nom (U) Microbiology PROCEDURE: Urine Culture [R1] SOURCE: U Random BODY SITE: COLLECTED DATE/TIME: 08/09/2024 14:02 EST RECEIVED DATE/TIME: 08/09/2024 18:01 EST START DATE/TIME: 08/09/2024 18:01 EST FREE TEXT SOURCE: Florinda Chapa PA-C, PA-C, Florinda FINAL REPORTS Final Report [] Verified Date/Time: 08/11/2024 10:37 EST >100,000 cfu/ml Escherichia coli SUSCEPTIBILITY RESULTS LEGEND: S=Susceptible, N/R=Not Reported, Blank=Data not available, or drug not advisable or tested, I=Intermediate, ESBL=Extended spectrum beta-lactamase, R=Resistant, TFG=Thymidine-depen dent strain, HI=Beta-lactamase positive, BENEDICTO=mcg/m;(mg/L), S*=Predicted susceptible interp, R*=Predicted resistant interp EC Antibiotic BENEDICTO Dilutn BENEDICTO Interp Ampicillin <=8 S Ampicillin/ <=8/4 S Sulbactam Aztreonam <=4 S Cefazolin <=2 S Cefepime <=2 S Ceftazidime <=1 S Ceftazidime/ <=8 S Avibactam Ceftriaxone <=1 S Cefuroxime 16 I Ciprofloxacin >2 R Ertapenem <=0.5 S Gentamicin <=2 S Levofloxacin >4 R Meropenem <=1 S Nitrofurantoin <=32 S Piperacillin/ <=8 S Tazobactam Tetracycline <=4 S Tobramycin <=2 S Trimethoprim/ <=2/38 S Sulfa Performing Locations R1: This test was performed at: [facility], [address] [place] [address], [facility] , , [facility] Comment on above: Performed By: #### [id number] #### [facility] [address] [place] [id number] Ambulatory Visit Summaryon 0 08-09-2024 Ambulatory Visit Summary Ambulatory Visit Summary LAINE LOPEZ :1955 Visit Date:08/09/2024 Ambulatory Visit Instructions Your Diagnosis Personal history of adenomatous and serrated colon polyps Family history of colon cancer in father Your Care Team Attending Physician - GRISELDA JONES, Gulshan Mercado Primary Care Physician - Sinan Kendrick MD Referring Physician - Sinan Kendrick MD This Is Your Medications List Contact prescribing physician if questions or concerns albuterol (Albuterol (Eqv-ProAir HFA) 90 mcg/inh inhalation aerosol) estradiol topical (Estrace 0.1 mg/g Cream) irbesartan (irbesartan 150 mg Tab) liothyronine (liothyronine 5 mcg Tab) methenamine (methenamine hippurate 1 g oral tablet) metoprolol (Metoprolol tartrate 50 mg Tab) trospium (trospium 20 mg oral tablet) Procedures Performed Colonoscopy (2014), section, section, Neurotomy, Tonsillectomy. Discharge Vitals Heart Rate (Peripheral) 79 Respiratory Rate 16 Blood Pressure 111/66 Height 165 cm Height 65 in Weight 94.4 kg Weight 208.116 lb BMI 34.67 What to do next Scheduled Follow-Up Appointments Wednesday 8:00 AM EDT With: Jhony JONES, Audrey Amato Where: [place] [address]- Medications What How Much When Instructions Unchanged albuterol (Albuterol (Eqv-ProAir HFA) 90 mcg/ inh inhalation aerosol) 2 Inhalation Inhalation Every 4 hours as needed for Shortness of breath or wheezing Contact prescribing physician if questions or concerns Unchanged estradiol topical (Estrace 0.1 mg/ g Cream) See instructions apply 1gm vaginally w plunger and a pea-sized amount around the urethra w your finger nightly x 3 weeks then 3x per week thereafter Contact prescribing physician if questions or concerns Unchanged irbesartan (irbesartan 150 mg Tab) 1 Tablets By Mouth Every day Contact prescribing physician if questions or concerns Unchanged liothyronine (liothyronine 5 mcg Tab) 2 Tablets By Mouth Every day Contact prescribing physician if questions or concerns Unchanged methenamine (methenamine hippurate 1 g oral tablet) 1 Tablets By Mouth 2 times a day Duration: 30 Days Contact prescribing physician if questions or concerns Unchanged metoprolol (Metoprolol tartrate 50 mg Tab) 1 Tablets By Mouth 2 times a day Contact prescribing physician if questions or concerns Unchanged trospium (trospium 20 mg oral tablet) 1 Tablets By Mouth Once a day (in the evening) Nightly Contact prescribing physician if questions or concerns Allergies sulfa drugs (Rash) Problems Ongoing - Any problem that you are currently receiving treatment for. BMI 34.0-34.9,adult Cervical radiculopathy Diabetes Family history of colon cancer in father Hypertension Hypothyroidism Memory loss Obesity due to excess calories SUSAN (obstructive sleep apnea) Personal history of adenomatous and serrated colon polyps Postinfective urethral stricture in female Recurrent UTI Urge urinary incontinence Patient Survey You may receive a survey via text or e-mail asking about your office visit. Please share your experience with us by completing your survey. We appreciate your feedback and thank you for choosing us for your care. [facility] Reminderson 08-02-2024 Reminders Reminders -- From: Sejal Harp To: EU - Recalls Lue; Sent: 05/31/2024 11:31:54 EST Show up: 08/01/2024 11:30:00 EST Subject: KORI Due Date/Time: 08/23/2024 11:30:00 EDT Reminder Message Pt needs to complete KORI at [facility] prior to f/u in 3 mos (appt on 08/30/24). Please fax order, notes, and demo. KORI done 06/19/24. Follow up on 08/30 [facility] C Urineon 07-05-2024 Bacteria identified Cx Nom (U) Microbiology PROCEDURE: Urine Culture [R1] SOURCE: U CleanCatch BODY SITE: COLLECTED DATE/TIME: 07/03/2024 14:19 EST RECEIVED DATE/TIME: 07/03/2024 18:38 EST START DATE/TIME: 07/03/2024 18:38 EST FREE TEXT SOURCE: JULIA MORENO PA-C, PA-C, JULIA Huynh FINAL REPORTS Final Report [] Verified Date/Time: 07/05/2024 10:54 EST 80,000 cfu/ml Escherichia coli SUSCEPTIBILITY RESULTS LEGEND: S=Susceptible, N/R=Not Reported, Blank=Data not available, or drug not advisable or tested, I=Intermediate, ESBL=Extended spectrum beta-lactamase, R=Resistant, TFG=Thymidine-depen dent strain, HI=Beta-lactamase positive, BENEDICTO=mcg/m;(mg/L), S*=Predicted susceptible interp, R*=Predicted resistant interp EC Antibiotic BENEDICTO Dilutn BENEDICTO Interp Ampicillin <=8 S Ampicillin/ <=8/4 S Sulbactam Aztreonam <=4 S Cefazolin <=2 S Cefepime <=2 S Ceftazidime <=1 S Ceftazidime/ <=8 S Avibactam Ceftriaxone <=1 S Cefuroxime 8 S Ciprofloxacin >2 R Ertapenem <=0.5 S Gentamicin <=2 S Levofloxacin >4 R Meropenem <=1 S Nitrofurantoin <=32 S Piperacillin/ <=8 S Tazobactam Tetracycline <=4 S Tobramycin <=2 S Trimethoprim/ <=2/38 S Sulfa Performing Locations R1: This test was performed at: [facility], [address] [place] [address], [id number] , , [facility] Comment on above: Performed By: #### [id number] #### [facility] [address] [place] [address] Ambulatory Visit Summaryon 1 08-01-2023 Ambulatory Visit Summary Ambulatory Visit Summary LAINE LOPEZ :1955 Visit Date:05/31/2024 Ambulatory Visit Instructions Your Diagnosis Recurrent UTI Urge urinary incontinence Postinfective urethral stricture in female Tests Performed US Renal -- Results Pending -- Please visit your patient portal for your results or contact your primary care physician. Your Care Team Attending Physician - Audrey Booker MD Primary Care Physician - Sinan Kendrick MD This Is Your Medications List methenamine (methenamine hippurate 1 g oral tablet) Contact prescribing physician if questions or concerns estradiol topical (Estrace 0.1 mg/g Cream) liothyronine (liothyronine 5 mcg Tab) lisinopril (lisinopril 10 mg Tab) metoprolol (Metoprolol tartrate 50 mg Tab) nitrofurantoin (Macrobid 100 mg Cap) trospium (trospium 20 mg oral tablet) Procedures Performed section, Tonsillectomy. Discharge Vitals Heart Rate (Peripheral) 64 Blood Pressure 106/66 Height 165 cm Height 65 in Weight 95.6 kg Weight 210.762 lb BMI 35.11 What to do next Scheduled Follow-Up Appointments Wednesday 8:00 AM EDT With: Audrey Booker MD Where: [facility] [address] [address] You Need to Schedule the Following Appointments Follow Up with Jhony JONES, Audrey Amato, URL, URO When: Comments: 3 mos w/ KORI Where: [address] [place] [address]- [phone] Medications What How Much When Instructions New methenamine (methenamine hippurate 1 g oral tablet) 1 Tablets By Mouth 2 times a day Duration: 30 Days Refills: 3 Pickup at [facility]/pharmacy #[id number] Unchanged estradiol topical (Estrace 0.1 mg/ g Cream) See instructions apply 1gm vaginally w plunger and a pea-sized amount around the urethra w your finger nightly x 3 weeks then 3x per week thereafter Contact prescribing physician if questions or concerns Unchanged liothyronine (liothyronine 5 mcg Tab) 1 Tablets By Mouth 2 times a day Contact prescribing physician if questions or concerns Unchanged lisinopril (lisinopril 10 mg Tab) 1 Tablets By Mouth Every day Contact prescribing physician if questions or concerns Unchanged metoprolol (Metoprolol tartrate 50 mg Tab) 1 Tablets By Mouth 2 times a day Contact prescribing physician if questions or concerns Unchanged nitrofurantoin (Macrobid 100 mg Cap) 1 Capsules By Mouth 2 times a day Duration: 5 Days Contact prescribing physician if questions or concerns Unchanged trospium (trospium 20 mg oral tablet) 1 Tablets By Mouth Once a day (in the evening) Nightly Contact prescribing physician if questions or concerns Pharmacy Information [facility]/pharmacy #[id number]: [address], [place] [id number] [phone] Allergies sulfa drugs (Rash) Problems Ongoing - Any problem that you are currently receiving treatment for. Hypertension Hypothyroid SUSAN (obstructive sleep apnea) Postinfective urethral stricture in female Recurrent UTI Urge urinary incontinence Patient Survey You may receive a survey via text or e-mail asking about your office visit. Please share your experience with us by completing your survey. We appreciate your feedback and thank you for choosing us for your care. Education Materials Atrophic Vaginitis Atrophic vaginitis is a condition in which the tissues that line the vagina become dry and thin. This condition is most common in women who have stopped having regular menstrual periods (are in menopause). This usually starts when a woman is 45 to 55 years old. That is the time when a woman's estrogen levels begin to decrease. Estrogen is a female hormone. It helps to keep the tissues of the vagina moist. It stimulates the vagina to produce a clear fluid that lubricates the vagina for sex. This fluid also protects the vagina from infection. Lack of estrogen can cause the lining of the vagina to get thinner and dryer. The vagina may also shrink in size. It may become less elastic. Atrophic vaginitis tends to get worse over time as a woman's estrogen level drops. What are the causes? This condition is caused by the normal drop in estrogen that happens around the time of menopause. What increases the risk? Certain conditions or situations may lower a woman's estrogen level, leading to a higher risk for atrophic vaginitis. You are more likely to develop this condition if: ??? You are taking medicines that block estrogen. ??? You have had your ovaries removed. ??? You are being treated for cancer with radiation or medicines (chemotherapy). ??? You have given or are . ??? You are older than age 50. ??? You smoke. What are the signs or symptoms? Symptoms of this condition include: ??? Pain, soreness, a feeling of pressure, or bleeding during sex (dyspareunia). ??? Vaginal burning, irritation, or itching. ??? Pain o (more content not included)... Normal [facility] Urology Office/Clinic Noteon 05-31-2024 Urology Office/Clinic Note Urology Office/Clinic Note Chief Complaint 3 mth f/u HPI Staff 68yr old female pt here for 3mo f/u medication change. S/p cysto 01/03/24. Previous Dx: recurrent uti, urge urinary incontinence *trospium 20mg qhs, estrace cream 3x/week pt states she feels Trospium is working much better than the Oxybutynin. pt was in Wednesday to give urine sample due to UTI sxs, confusion and just not feeling right, and off balance. Pt did start ABX Wednesday and is feeling better. pt also feeling more tremors, she feels it is due to the diabetes but wanted to discuss. pt also has questions on meds she was prescribed Wednesday, she stated there were 2 meds in there, she took both but had questions. pt also has concerns with her to dicuss with DR Booker Dysuria: _no Incomplete bladder emptying: _no Hematuria: _no Frequency: _q3-4 hrs Urgency: _mild, pt does do kegals when sitting, but when standing at a sink or busy, she may have more urgency. Nocturia: _2x Stream: _normal Leaking: _at times Post void dripping: _no Wearing pads/ Depends: _pads Urge incontinence: _at times Stress incontinence: _no Incontinence without Sensory Awareness: _no Abdominal pain: _no Flank pain: _lower right Sexual complaints: _ History of Present Illness Tests reviewed: reviewed UA, ucx, PVR I have reviewed the previous health record information and history for this patient from Dr. Booker. I have reviewed and verified the staff HPI to be accurate for this encounter. Review of Systems PHQ Score Initial Depression Screen Score: 0 SCORE ROS - Provider Constitutional: denies weight loss, denies hot flashes. Eyes: denies eye problems. Gastrointestinal: denies nausea, denies vomiting. Cardiovascular: denies chest pain or angina. Integumentary: no dryness Musculoskeletal: denies musculoskeletal symptoms. ENMT: denies otolaryngeal symptoms. Respiratory: no shortness of breath. Heme/Lymph: denies easy bleeding tendency, denies easy bruising tendency. Psychiatric: no confusion, no anxiety. Genitourinary: See HPI. Physical Exam Vitals & Measurements HR: 64(Peripheral) BP: 106/66 HT: 65 in HT: 165 cm WT: 95.6 kg WT: 210.762 lb BMI: 35.11 General Appearance: alert, no distress, well nourished, well developed female. Assessment/Plan 68 yo pt with history of recurrent UTIs following up post-op cysto w/UD. CMP 03/26/23 BUN 24.0 Crea 1.01 eGFR 55 1. Recurrent UTI (N39.0: Urinary tract infection, site not specified) CT AP w con 11/11/22 [facility] - Unremarkable kidneys and bladder. KORI 03/31/23 - Mild L pelviectasis. No hx of stones. C&S: 02/01/23 >100k E Coli 03/08/23 >100k Citrobacter braakii 09/17/23 >100k E Coli 01/30/24 >100k E Coli 03/08/24 - >100k E. coli and 50k E. coli #2 different biotype. Tx'd w/ Keflex 100mg bid x5 days. 05/26/24 - >100k E. coli. Tx'd w/ Macrobid 100mg bid x5 days. KUB 12/20/23 - negative S/p Cysto/UD 01/03/24 States she has been taking Macrobid. Feels UTI sxs are improving. Did not feel prior infection ever resolved as urine became cloudy after 10 days. Has been applying Estrace cream vaginally 4x/wk. Also taking cranberry, d-mannose, and a combination pill. Discussed methenamine and risks/benefits. Pt reports mild right lower back pain. Reviewed previously imaging results - CT AP w/ IV con 11/2022 neg. Offered to repeat KORI to evaluate for blockage that could be contributing to decreased renal function and prior mild L pelviectasis. Pt wishes to proceed with this. Also admits to constipation. Educated pt on contribution to UTIs. Recommended increased fluid intake and stool softeners. -Schedule KORI @ [facility]. F/u in 3 mos to review. -Start methenamine after completing Macrobid. Last urine pH 5.5, cont vit C -Cont Estrace cream, d-mannose, cranberry pills -Increase water intake -Bowel regimen 2. Urge urinary incontinence (N39.41: Urge incontinence) PVR (cc): 12/14/23 - 88 03/08/24 - 0 05/31/24 - 110 BBS 17 (15) - despite worse score, pt feels sxs are improving. Failed Oxybutynin 5 mg bid d/t SE of dry mouth. Myrbetriq was over $100/month. Started on Trospium 20mg qhs at prior OV. States she currently has extreme dry mouth but has been taking Tizanidine which may be contributing. Overall feels urgency has improved. Declines other procedures or changes at this time -Cont kegel exercises -Cont Trospium 3. 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 urethral stricture, not elsewhere classified, female) S/p Cysto/UD 01/03/24. Improvement in weak stream. Not helping with UTIs, see #1 -Cont sx monitoring, pt would repeat in the future Follow-up With When Contact Information Jhony JONES, Audrey Amato, URL, URO [address] [place] [address]- [phone] Additional Instructions: 3 mos w/ KORI Patient Education Atrophic Vaginitis I, Sejal Harp, personally scribed for Dr. Booker on 05/31/2024 10:04:51. (more content not included)... Normal [facility] Comment on above: Result Comment: Elec tronically Signed By: Audrey Booker MD\.br\Date and Time Signed: 05/31/24 10:41 EST\.br\Electronically Co-Signed By: Sejal Harp\Date and Time Co-Signed: 05/31/24 10:05 EST C Urineon 05-28-2024 Bacteria identified Cx Nom (U) Microbiology PROCEDURE: Urine Culture [R1] SOURCE: U Random BODY SITE: COLLECTED DATE/TIME: 05/26/2024 11:18 EST RECEIVED DATE/TIME: 05/26/2024 17:48 EST START DATE/TIME: 05/26/2024 17:48 EST FREE TEXT SOURCE: Jhony JONES, Audrey Booker MD, Audrey Amato FINAL REPORTS Final Report [] Verified Date/Time: 05/28/2024 08:57 EST >100,000 cfu/ml Escherichia coli SUSCEPTIBILITY RESULTS LEGEND: S=Susceptible, N/R=Not Reported, Blank=Data not available, or drug not advisable or tested, I=Intermediate, ESBL=Extended spectrum beta-lactamase, R=Resistant, TFG=Thymidine-depen dent strain, HI=Beta-lactamase positive, BENEDICTO=mcg/m;(mg/L), S*=Predicted susceptible interp, R*=Predicted resistant interp EC Antibiotic BENEDICTO Dilutn BENEDICTO Interp Ampicillin <=8 S Ampicillin/ <=8/4 S Sulbactam Aztreonam <=4 S Cefazolin <=2 S Cefepime <=2 S Ceftazidime <=1 S Ceftazidime/ <=8 S Avibactam Ceftriaxone <=1 S Cefuroxime <=4 S Ciprofloxacin >2 R Ertapenem <=0.5 S Gentamicin <=2 S Levofloxacin >4 R Meropenem <=1 S Nitrofurantoin <=32 S Piperacillin/ <=8 S Tazobactam Tetracycline <=4 S Tobramycin <=2 S Trimethoprim/ <=2/38 S Sulfa Performing Locations R1: This test was performed at: [facility], [address] [place] [address], [id number]- , [place], Normal [facility] Comment on above: Performed By: #### 2 [id number] #### [facility] [address] [place] [id number] C Urineon 03-11-2024 Bacteria identified Cx Nom (U) Microbiology PROCEDURE: Urine Culture [R1] SOURCE: U CleanCatch BODY SITE: COLLECTED DATE/TIME: 03/08/2024 09:12 EDT RECEIVED DATE/TIME: 03/08/2024 17:51 EDT START DATE/TIME: 03/08/2024 17:51 EDT FREE TEXT SOURCE: Jhony JONES, Audrey Booker MD, Audrey Amato FINAL REPORTS Final Report [] Verified Date/Time: 03/11/2024 09:38 EDT >100,000 cfu/ml Escherichia coli 50,000 cfu/ml Escherichia coli #2 Different Biotype. SUSCEPTIBILITY RESULTS LEGEND: S=Susceptible, N/R=Not Reported, Blank=Data not available, or drug not advisable or tested, I=Intermediate, ESBL=Extended spectrum beta-lactamase, R=Resistant, TFG=Thymidine-depen dent strain, HI=Beta-lactamase positive, BENEDICTO=mcg/m;(mg/L), S*=Predicted susceptible interp, R*=Predicted resistant interp EC EC #2 Antibiotic BENEDICTO Dilutn BENEDICTO Interp BENEDICTO Dilutn BENEDICTO Interp Ampicillin <=8 S <=8 S Ampicillin/ <=8/4 S <=8/4 S Sulbactam Aztreonam <=4 S <=4 S Cefazolin <=2 S <=2 S Cefepime <=2 S <=2 S Ceftazidime <=1 S <=1 S Ceftazidime/ <=8 S <=8 S Avibactam Ceftriaxone <=1 S <=1 S Cefuroxime <=4 S <=4 S Ciprofloxacin >2 R <=0.25 S Ertapenem <=0.5 S <=0.5 S Gentamicin <=2 S <=2 S Levofloxacin >4 R <=0.5 S Meropenem <=1 S <=1 S Nitrofurantoin <=32 S <=32 S Piperacillin/ <=8 S <=8 S Tazobactam Tetracycline <=4 S <=4 S Tobramycin <=2 S <=2 S Trimethoprim/ <=2/38 S <=2/38 S Sulfa Performing Locations R1: This test was performed at: [facility], [address] [place] [address], [phone] , , [facility] Comment on above: Performed By: #### 2 [id number] #### [facility] [address] [place] [id number] Ambulatory Visit Summaryon 0 03-08-2024 Ambulatory Visit Summary Ambulatory Visit Summary LAINE LOPEZ :1955 Visit Date:03/08/2024 Ambulatory Visit Instructions Your Diagnosis Recurrent UTI Urge urinary incontinence Your Care Team Attending Physician - Audrey Booker MD Primary Care Physician - Sinan Kendrick MD This Is Your Medications List trospium (trospium 20 mg oral tablet) Contact prescribing physician if questions or concerns estradiol topical (Estrace 0.1 mg/g Cream) liothyronine (liothyronine 5 mcg Tab) lisinopril (lisinopril 10 mg Tab) metoprolol (Metoprolol tartrate 50 mg Tab) [Image Removed: STOP]Stop taking these medications oxybutynin (oxybutynin 5 mg Tab) Procedures Performed section, Tonsillectomy. Discharge Vitals Heart Rate (Peripheral) 68 Respiratory Rate 16 Blood Pressure 131/79 Height 165 cm Height 65 in Weight 95.6 kg Weight 210.32 lb BMI 35.11 What to do next Scheduled Follow-Up Appointments Wednesday 8:45 AM EST With: Audrey Booker MD Where: [facility] [address] You Need to Schedule the Following Appointments Follow Up with Jhony JONES, Audrey Amato, URL, URO When: Comments: 3 mos Where: Medications What How Much When Instructions New trospium (trospium 20 mg oral tablet) 1 Tablets By Mouth Once a day (in the evening) Refills: 11 Nightly Pickup at [facility]/pharmacy #[id number] Unchanged estradiol topical (Estrace 0.1 mg/ g Cream) See instructions apply 1gm vaginally w plunger and a pea-sized amount around the urethra w your finger nightly x 3 weeks then 3x per week thereafter Contact prescribing physician if questions or concerns Unchanged liothyronine (liothyronine 5 mcg Tab) 1 Tablets By Mouth 2 times a day Contact prescribing physician if questions or concerns Unchanged lisinopril (lisinopril 10 mg Tab) 1 Tablets By Mouth Every day Contact prescribing physician if questions or concerns Unchanged metoprolol (Metoprolol tartrate 50 mg Tab) 1 Tablets By Mouth 2 times a day Contact prescribing physician if questions or concerns Pharmacy Information [facility]/pharmacy #[id number]: [address], [place] [id number] [phone] What How Much When Comments Stop Taking oxybutynin (oxybutynin 5 mg Tab) 1 Tablets By Mouth As needed for for urinary discomfort Allergies sulfa drugs (Rash) Problems Ongoing - Any problem that you are currently receiving treatment for. Hypertension Hypothyroid SUSAN (obstructive sleep apnea) Recurrent UTI Urge urinary incontinence Patient Survey You may receive a survey via text or e-mail asking about your office visit. Please share your experience with us by completing your survey. We appreciate your feedback and thank you for choosing us for your care. Education Materials Urinary Tract Infection, Adult A urinary tract [...] decreased appetite. ? Confusion. ? Irritability or tir (more content not included)... Normal [facility] Urology Office/Clinic Noteon 03-08-2024 Urology Office/Clinic Note Urology Office/Clinic Note Chief Complaint 2 month follow up from cysto HPI Staff 68 year old female patient presents today for a 2 month follow up from cysto 01/03/24. Previous Dx: urge urinary incontinence, recurrent UTI. * Oxybutynin 5 mg bid prn, Estrace cream 3 x a week. PVR: 0 ml Dysuria: denies Incomplete bladder emptying: sometimes Hematuria: denies Frequency: denies Urgency: sometimes Nocturia: 2 x a night Stream: denies hesitancy, has a steady stream Leaking: denies Post void dripping: denies Wearing pads/ Depends: pads daily, once a day changing them Urge incontinence: rarely Stress incontinence: denies Incontinence without Sensory Awareness: denies Abdominal pain: denies Flank pain: right flank pain, chronic Sexual complaints: _ History of Present Illness Tests reviewed: reviewed UA I have reviewed the previous health record information and history for this patient from [facility]RE[facility] Good. I have reviewed and verified the staff HPI to be accurate for this encounter. There have been no associated fever, chills, flank pain, or blood in the urine. Denies any urinary infections since last encounter. Review of Systems PHQ Score Initial Depression Screen Score: 0 SCORE ROS - Provider Constitutional: denies weight loss, denies hot flashes. Eyes: denies eye problems. Gastrointestinal: denies nausea, denies vomiting. Cardiovascular: denies chest pain or angina. Integumentary: no dryness Musculoskeletal: denies musculoskeletal symptoms. ENMT: denies otolaryngeal symptoms. Respiratory: no shortness of breath. Heme/Lymph: denies easy bleeding tendency, denies easy bruising tendency. Psychiatric: no confusion, no anxiety. Genitourinary: See HPI. Physical Exam Vitals & Measurements HR: 68(Peripheral) RR: 16 BP: 131/79 HT: 65 in HT: 165 cm WT: 95.6 kg WT: 210.32 lb BMI: 35.11 General Appearance: alert , no acute distress, well nourished, well developed female. Assessment/Plan 68yo pt following up post-op cysto w/UD. CMP 03/26/23 BUN 24.0 Crea 1.01 eGFR 55 1. Recurrent UTI (N39.0: Urinary tract infection, site not specified) KORI 03/31/23 - Mild L pelviectasis. No hx of stones. C&S: 02/01/23 >100k E Coli 03/08/23 >100k Citrobacter braakii 09/17/23 >100k E Coli 01/30/24 >100k E Coli KUB 12/20/23 - negative S/p Cysto/UD 01/03/24 UA today shows small blood, positive nitrites, and large leuks. Pt states after UD, her stream has improved. Overall satisifed with procedure. Pt was hesitant on starting estrace cream, but reassured her she is OK to continue it. Regimen of estrace use discussed with pt. Pt admits to using OTC UTI treatments (cranberry, probiotics, and d-mannose). Pt notices cloudy urine but not much other sxs (some frequency and urgency). Would like to treat current infection. Discussed methenamine for future reference. SEs discussed. -Urine sent for Culture (will call with results & treatment abx) -Increase fluids (also to help with constipation) -OTC supplements Ordered: Urnls Dip Stick Auto w/o Microscopy POC 53846 2. Urge urinary incontinence (N39.41: Urge incontinence) PVR (cc): 12/14/23 - 88 03/08/24 - 0 BBS 15 (19). Taking Oxybutynin 5 mg bid prn. Pt states she does have dry mouth as SE. Pt states Myrbetriq was over $100/month. Discussed switching rx to Trsopium, SEs discussed. Starting with lower dose to asses for SEs, may increase in the future. Discussed botox vs SNM, information provided. Pt not ready for procedures yet -D/c oxybutynin -Start Trospium 20mg qhs. Can increase to BID or ER if needed -Cont kegel exercises -f/up 3 mos Ordered: Urnls Dip Stick Auto w/o Microscopy POC 22542 3. 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 urethral stricture, not elsewhere classified, female) Improvement in weak stream Not helping with UTIs, see #1 Discussed need for estrace cream, risks/benefits -Cont sx monitoring, pt would repeat in the future Orders: trospium, 20 mg = 1 tab(s), Oral, qPM, Nightly, # 30 tab(s), Refills(s) 11, Pharmacy: [facility]/pharmacy #[id number], 165, cm, 03/08/24 8:20:00 EDT, Height/Length Dosing, 95.6, kg, 03/08/24 8:20:00 EDT, Weight Dosing Follow-up With When Contact Information Jhony JONES, Audrey Amato, URL, URO Additional Instructions: 3 mos Patient Education Urinary Tract Infection, Adult Overactive Bladder, Adult I, Belen Wall, personally scribed for Dr. Booker on 03/08/2024 08:46:41. . Documentation recorded by the scribBelen huynh , accurately reflects the services(s) I performed and decisions made by me. Authenticated by Dr. Booker on 03/08/2024 08:58:56. Problem List/Past Medical History Ongoing Hypertension Hypothyroid SUSAN (obstructive sleep apnea) Recurrent UTI Urge urinary incontinence Historical No qualifying data Procedure/Surgical History section, Tonsillectomy. Medications Estr (more content not included)... Normal [facility] Comment on above: Result Comment: Elec tronically Signed By: Audrey Booker MD\.br\Date and Time Signed: 03/08/24 08:59 EDT\.br\Electronically Co-Signed By: Belen Wall\.br\Date and Time Co-Signed: 03/08/24 08:47 EDT C Urineon 01-30-2024 Bacteria identified Cx Nom (U) Microbiology PROCEDURE: Urine Culture [R1] SOURCE: U CleanCatch BODY SITE: COLLECTED DATE/TIME: 01/27/2024 08:50 EDT RECEIVED DATE/TIME: 01/27/2024 15:31 EDT START DATE/TIME: 01/27/2024 15:31 EDT FREE TEXT SOURCE: PRADIP Brannon APRN-C, [employer] SPRINGER, PRADIP-C, Yumiko Calderon X FINAL REPORTS Final Report [] Verified Date/Time: 01/30/2024 09:54 EDT >100,000 cfu/ml Escherichia coli 75,000 cfu/ml Escherichia coli #2 Different Biotype. SUSCEPTIBILITY RESULTS LEGEND: S=Susceptible, N/R=Not Reported, Blank=Data not available, or drug not advisable or tested, I=Intermediate, ESBL=Extended spectrum beta-lactamase, R=Resistant, TFG=Thymidine-depen dent strain, HI=Beta-lactamase positive, BENEDICTO=mcg/m;(mg/L), S*=Predicted susceptible interp, R*=Predicted resistant interp [facility] #2 Antibiotic BENEDICTO Dilutn BENEDICTO Interp BENEDICTO Dilutn BENEDICTO Interp Ampicillin <=8 S <=8 S Ampicillin/ <=8/4 S <=8/4 S Sulbactam Aztreonam <=4 S <=4 S Cefazolin <=2 S <=2 S Cefepime <=2 S <=2 S Ceftazidime <=1 S <=1 S Ceftazidime/ <=8 S <=8 S Avibactam Ceftriaxone <=1 S <=1 S Cefuroxime <=4 S <=4 S Ciprofloxacin >2 R <=0.25 S Ertapenem <=0.5 S <=0.5 S Gentamicin <=2 S <=2 S Levofloxacin >4 R <=0.5 S Meropenem <=1 S <=1 S Nitrofurantoin <=32 S <=32 S Piperacillin/ <=8 S <=8 S Tazobactam Tetracycline <=4 S <=4 S Tobramycin <=2 S <=2 S Trimethoprim/ <=2/38 S <=2/38 S Sulfa Performing Locations R1: This test was performed at: [facility], [address] [place] [address], [address]- , [place], Normal [facility] Comment on above: Performed By: #### 2 [id number] #### [facility] [address] [place] [address] UA with Cult Rflxon 01-04-20 24 Bacteria Auto Ql (U) 1+ /HPF Abnormal Trace Fish [facility] Comment on above: Performed By: #### 4 [id number] #### [facility] [address] [place] [address] Bilirubin Ql (U) Negative Normal Negative [facility] Comment on above: Performed By: #### 4 [id number] #### [facility] [address] [place] [address] Clarity (U) Ex.Turbid Abnormal Clear [facility] Comment on above: Performed By: #### 4 [id number] #### [facility] [address] [place] [address] Color (U) Yellow Normal Yellow [facility] Comment on above: Result Comment: Micr oscopic readings are only performed on those samples that meet specific criteria set forth by [facility]. Performed By: #### 4 [id number] #### [facility] [address] [place] [address] Epithelial cells.squamous Auto (Urine sed) [#/Area] 3-4 Invalid Interpretation Code [facility] Comment on above: Performed By: #### 4 [id number] #### [facility] [address] [place] [address] Glucose Ql (U) Negative Normal Negative [facility] Comment on above: Performed By: #### 4 [id number] #### [facility] [address] [place] [address] Hemoglobin Auto test strip (U) [Mass/Vol] 1+ mg/dL Abnormal Negative [facility] Comment on above: Performed By: #### 4 [id number] #### [facility] [address] [place] [address] Ketones Auto test strip Ql (U) Negative Normal Negative [facility] Comment on above: Performed By: #### 4 [id number] #### [facility] [address] [place] [address] Leukocyte clumps Auto (Urine sed) [#/Area] 21-30 Abnormal [facility] Comment on above: Performed By: #### 4 [id number] #### [facility] [address] [place] [address] Leukocyte esterase Auto test strip Ql (U) 500 Ata/uL Abnormal Negative [facility] Comment on above: Performed By: #### 4 [id number] #### [facility] [address] [place] [address] Mucus Auto Ql (U) Trace Normal Negative [facility] Comment on above: Performed By: #### 4 [id number] #### [facility] [address] [place] [address] Nitrite Auto test strip Ql (U) 1+ mg/dL Abnormal Negative [facility] Comment on above: Performed By: #### 4 [id number] #### [facility] [address] [place] [address] pH (U) 6.0 [pH] Invalid Interpretation Code 5.0-9.0 [facility] Comment on above: Performed By: #### 4 [id number] #### [facility] [address] [place] [address] Protein Ql (U) Trace Abnormal Negative [facility] Comment on above: Performed By: #### 4 [id number] #### [facility] [address] [place] [address] RBC Ql (U) 4-20 Abnormal 0-3 [facility] Comment on above: Performed By: #### 4 [id number] #### [facility] [address] [place] [address] Specific gravity (U) [Rel density] 1.009 Invalid Interpretation Code 1.005-1.030 [facility] Comment on above: Performed By: #### 4 [id number] #### [facility] [address] [place] [address] Urobilinogen (U) [Mass/Vol] Negative Normal Negative [facility] Comment on above: Performed By: #### 4 [id number] #### [facility] [address] [place] [address] WBC Auto (Urine sed) [#/Area] >75 Abnormal 0-5 [facility] Comment on above: Performed By: #### 4 [id number] #### [facility] [address] [place] [address] Inpatient Patient Summaryon 01-03-2024 Inpatient Patient Summary Inpatient Patient Summary [address] [address] Clinical Summary Person Information Name: LAINE LOPEZ Age: 68 Years : 1955 Sex: Female PCP: Sinan Kendrick MD Marital Status: Unknown Race: White Ethnicity: Non- or Language: Indonesian Visit Id: Visit Reason: RECURRENT UTI Speciality: Acuity: Enc Type: Outpatient Med Service: Surgery Arrival: 01/03/2024 10:00:24 Discharge: Dispo Type: Address: [address] [place] [id number] Provider Notes: Diagnosis: Acute UTI; Urge urinary incontinence Problems Active Urge urinary incontinence Hypertension Hypothyroid Smoking Status: Functional Status: Sensory Deficits: History of Falls: Mobility Assistance Prior to Admission: ADLs: Current Level of Assistance for Self-Care/Mobility: Cognitive Status: Allergies sulfa drugs (Rash) Laboratory or Other Results This Visit (last charted value for your 01/03/2024 visit) No Laboratory or Other Results This Visit Measurements: Height: 165 cm Weight: 95.6 kg Blood Pressure: Not Valued / Not Valued BMI: 35.11 kg/m2 Procedures No Procedures Documented Immunizations No Immunizations Documented This Visit Final Med List: ciprofloxacin (Cipro 500 mg Tab) 1 Tablets By Mouth every 12 hours for 3 Days. Refills: 0. estradiol topical (Estrace 0.1 mg/g Cream) apply 1gm vaginally w plunger and a pea-sized amount around the urethra w your finger nightly x 3 weeks then 3x per week thereafter. Refills: 6. lisinopril (lisinopril 10 mg Tab) 1 Tablets By Mouth every day. metoprolol (Metoprolol tartrate 50 mg Tab) 1 Tablets By Mouth 2 times a day. oxybutynin (oxybutynin 5 mg Tab) 1 Tablets By Mouth as needed for urinary discomfort. Care Team Members: Attending Physician: Audrey Booker MD Consulting Physician: Referring Physician: Audrey Booker MD Follow up: With: Address: When: Audrey Booker [address] [place], [place] [phone] Business (1) Comments: Office to schedule follow up in 1-2 months Patient Education Information: EU - Cystoscopy Discharge Instructions (CUSTOM) [facility] Main OR Intraoperative Recor don 01-03-2024 Main OR Intraoperative Record Main OR Intraoperative Record IntraOp Document Type FTURO Summary Primary Physician: Audrey Booker MD Finalized Date/Time: 01/03/24 11:03:38 Pt. Name: LAINE LOPEZ/Sex: 1955 Female Med Rec #: [id number] Physician: Audrey Booker MD Financial #: [id number] Pt. Type: O Room/Bed: / Admit/Disch: 01/03/24 10:00:24 - Institution: Case Times FTURO Entry 1 Patient Times In Room 01/03/24 10:43:00 Out Room 01/03/24 11:03:00 Procedure Times Start 01/03/24 10:52:00 Stop 01/03/24 10:58:00 Anesthesia Times Last Modified By: Cristine Gonzalez 01/03/24 11:03:28 Case Attendance FTURO Entry 1 Entry 2 Entry 3 Case Attendee Audrey Booker MD, Kelsie E McClain CST, Kimberly A Role Performed Surgeon - Primary Chair Maker - Primary Scrub - Primary Time In 01/03/24 10:43:00 01/03/24 10:43:00 01/03/24 10:43:00 Time Out 01/03/24 11:03:00 01/03/24 11:03:00 01/03/24 11:03:00 Procedure CYSTOSCOPY LOCAL WITH CYSTOSCOPY LOCAL WITH CYSTOSCOPY LOCAL WITH URETHRAL DILATION(.) URETHRAL DILATION(.) URETHRAL DILATION(.) Comments Last Modified By: Cristine Gonzalez Kelsie E Burgderfer, Kelsie E 01/03/24 11:03:29 01/03/24 11:03:29 01/03/24 11:03:29 Surgical Procedures FTURO Entry 1 Procedure Description Procedure CYSTOSCOPY LOCAL WITH Modifiers . URETHRAL DILATION Surgeon Description CYSTOSCOPY LOCAL WITH URETHRAL DILATION Primary Procedure Yes Primary Surgeon Audrey Booker MD Start 01/03/24 10:52:00 Stop 01/03/24 10:58:00 Anesthesia Type Local Surgical Service Urology Wound Class 2 - Clean-Contaminated Last Modified By: Cristine Gonzalez 01/03/24 11:02:51 General Case Data FTURO Pre-Care Text: Classifies surgical wound, implements aseptic technique, initiates traffic control Entry 1 Case Information OR URO 1 FT Case Level None Wound Class 2 - Clean-Contaminated Specialty Urology Preop Diagnosis RECURRENT UTI Postop Same As Preop Yes Postop Diagnosis RECURRENT UTI Outcomes Met? Yes Last Modified By: Cristine Gonzalez 01/03/24 10:43:28 Post-Care Text: The patient is free from signs and symptoms of infection EU IntraOp - FTURO Pre-Care Text: Implements protective measures prior to operative or invasive procedure, confirms identity before the operative or invasive procedure, verifies operative procedure, surgical site, and laterality Entry 1 EU Perioperative Protocols Procedure(s) CYSTOSCOPY LOCAL WITH Patient Identity Birthday, ID Band URETHRAL DILATION(.) Verified (select at Check, Patient least 2): Participation Consents / H and P HandP, Surgery/Procedure Operative Site N/A Verified Consent Marking Verified Surgical Site Yes Laterality Verified n/a Verified Procedure Verified Yes Correct Patient Yes Position Verified Availability Equipment, Medication Time Out Audrey Booker MD, Verified (If Participants Cristine Gonzalez, Applicable) Misti Montero CST Time Out Complete 01/03/24 10:50:00 Allergies Reviewed? Yes Allergies Reviewed Self/Patient With Body Position Frog Legged Prep Area VAGINA Prep Agents Betadine Solution Skin. Condition Unable to Visualize Description N/A Additional None Specimens Comment N/A Specimens Collected Vitals - EU Blood Pressure 126/65 Pulse 75 bpm Respirations 18 br/min SPO2 96 % EBL 0 IandO - EU Total Intake 0 mL Total Output 0 mL Outcomes Met? Yes Last Modified By: Cristine Gonzalez 01/03/24 10:51:12 Post-Care Text: The patient is free from signs and symptoms of injury caused by extraneous objects Sign Out FTURO Entry 1 Before Patient Leaves OR Nurse verbally Yes Nurse verbally n/a confirms with the confirms with the team the name of team that the procedure(s) instrument, sponge, recorded and needle counts are correct (or N/A) Nurse verbally Yes Nurse verbally Yes confirms with the confirms with the team how the team whether there specimen is labeled are any equipment (including patient problems to be name), if applicable addressed Sign Out Complete 01/03/24 10:58:00 Last Modified By: Cristine Gonzalez 01/03/24 10:58:56 Case Comments Finalized By: Cristine Gonzalez Document Signatures Signed By: Cristine Gonzalez 01/03/24 11:03 Cristine Gonzalez 01/03/24 11:03 Cristine Gonzalez 01/03/24 11:03 [facility] Main OR Preoperative Recordo n 01-03-2024 Main OR Preoperative Record Main OR Preoperative Record Holding Area Document Type FTURO Summary Primary Physician: Audrey Booker MD Finalized Date/Time: 01/03/24 10:45:26 Pt. Name: LAINE LOPEZ /Sex: 1955 Female Med Rec #: [id number] Physician: Audrey Booker MD Financial #: [id number] Pt. Type: O Room/Bed: / Admit/Disch: 01/03/24 10:00:24 - Institution: Case Times Holding FTURO Pre-Care Text: Verifies consent for planned procedure, identifies individual values and wishes concerning care, includes family members in perioperative teaching Secures patient's records' belongings, and valuables, maintains patient's dignity and privacy, and maintains patient confidentiality Entry 1 In Holding 01/03/24 10:15:00 Outcomes Met? Yes Last Modified By: Zoey Almaguer LPN 01/03/24 10:25:49 Post-Care Text: The patient participates in decisions affecting his or her perioperative plan of care The patient's right to privacy is maintained Surgery Checklist FTURO Entry 1 Patient Birthday, ID Band Procedure History and Physical, Identification: Check, Patient Verification: Surgical Consent, With Participation Patient NPO after Midnight: n/a Personal Items: Glasses, Jewelry Limitations: up ad tu Complaints of Pain: No Skin Integrity Intact, [place], Warm, & Dry Vitals - EU Blood Pressure 126/65 Pulse 75 bpm Respirations 18 br/min SPO2 96 % Additional Other (See Comment) Specimens Comment UA dip Specimens Collected RN Reviewed Yes Last Modified By: Cristine Gonzalez 01/03/24 10:45:10 Finalized By: Cristine Gonzalez Document Signatures Signed By: Cristine Gonzalez 01/03/24 10:45 Cristine Gonzalez 01/03/24 10:45 Cristine Gonzalez 01/03/24 10:45 Cristine Gonzalez 01/03/24 10:45 Zoey Almaguer LPN 01/03/24 10:27 Cristine Gonzalez 01/03/24 10:45 Normal [facility] Operative Reporton 4 Operative Report Operative Report Patient: LAINE LOPEZ Age: 68 years Sex: Female : 1955 Associated Diagnoses: None Author: Audrey Booker MD Procedure Operative Information Details: Date/ Time: 01/03/2024 11:07:00. Pre-Op Dx: Urge urinary incontinence (DKD60-WU N39.41, Discharge, Medical), Recurrent UTI (ZSI06-SM N39.0, Working, Medical). Post-Op Dx: Urge urinary incontinence (ZNH57-DK N39.41, Discharge, Medical), Urethral meatal stenosis (YUH32-OM N35.919, Working, Medical), Recurrent UTI ([id number]-JY N39.0, Working, Medical). Anesthesia Type: Local. Procedure: Local Cystoscopy with Urethral Dilation. Complications: None. Risks/Benefits/Info rmed Consent: Surgical risks, benefits, details of the procedure have been explained to the patient, Full informed consent has been obtained. Intraoperative Information Prepped: Patient is brought back to the endoscopy suite, Patient is placed in supine position, Patient prepped in the usual fashion with Betadine solution, 2% Xylocaine Jelly is placed per Urethra, After waiting several minutes the Cystoscope is introduced. The Urethra is: Tight. The Bladder is: Normal, Trabeculated (Moderate (2), Few scattered cellules), No bladder tumors, lesions, stones or foreign bodies. Mild debris and scattered submucosal hemorrhage/irritati on . The ureteral orifices: Show efflux of clear urine. The Urethra was dilated to: 30 Persian w/ sounds. Devices Implanted: None. Removal: Cystoscope is removed, The patient tolerated it well. Vaginal examination: Vaginal mucosa: There is severe vaginal atrophy The urethra is patent, retracted.There are no masses or lesions. There is minimal urethral hypermobility and CHICO is not seen. She is able to correctly identify her pelvic muscles, weak. No significant anterior, apical or posterior prolapse. Non-tender pelvic floor muscles . Postoperative Information Discharge: Patient is discharged home with antibiotic coverage, Follow up arranged, Pt to monitor dilation symptoms. Prophy abx sent See separate clinic note regarding additional issues and treatment: -F/u UCx from today, treat if resistant to cipro sent today -Start estrace cream -Kegels -F/u in 1-2 months, consider changing urge medication at that time pending UD results. . Normal [facility] Comment on above: Result Comment: Elec tronically Signed By: Audrey Booker MD\.br\Date and Time Signed: 01/03/24 11:11 EDT Outpatient Surgery Discharge Instructionon 01-03-2024 Outpatient Surgery Discharge Instruction Outpatient Surgery Discharge Instruction [address] [address] Patient Discharge Instructions PERSON INFORMATION Name: LAINE LOPEZ Date of : 1955 Current Date: 01/03/2024 11:01:03 PHYSICIANS Admitting Physician: Audrey Booker MD Comment: Discharge Diagnosis: Acute UTI; Urge urinary incontinence LAINE LOPEZ has been given the following list of follow-up instructions, prescriptions, and patient education materials: IF UNABLE TO CONTACT YOUR PHYSICIAN AND YOU FEEL IT IS AN EMERGENCY, GO TO THE NEAREST EMERGENCY ROOM OR CALL 911 Follow up: With: Address: When: Audrey Booker [address] [place], [place] [id number] [phone] Business (1) Comments: Office to schedule follow up in 1-2 months Comment: PATIENT EDUCATION INFORMATION Instructions: Cystoscopy ? Voiding after the procedure: there may be some pain, burning, urgency, frequency and blood tinged urine following the procedure. These symptoms usually resolve within 2-5 days. Drink the amount of fluid it takes to keep the urine pink to yellow or clear in color. Drinking enough water and fluids will help to ease any discomfort after your procedure. ? If you are having problems that seem out of the ordinary, please call. ? If unable to contact your physician and you feel it is an emergency, go to the nearest emergency room or call 911 ? Diet ? you may resume your normal diet. ? Activity ? you may resume your normal activities ? Call if you have a fever over 100 degrees. I, LAINE LOPEZ, have received the attached patient education materials/instructi ons and have verbalized understanding: May we do a follow up call? Yes No I was present when discharge instructions were given _ Patient Signature Date Clinican/Nurse Signature Date You may receive a survey from [employer] asking you to rate your care experience. Your feedback is important and will help us understand what we do well and how we can improve the quality of care we provide to you, your loved ones and our community. It?s an honor to serve you. Thank you for choosing [facility] Normal [facility] UA with Cult Rflxon 01-03-20 Type of Urine collection method Clean Catch Normal [facility] Comment on above: Performed By: #### 4 [id number] #### [facility] [address] [place] [address] URINALYSISOrdered By: Cristine Gonzalez on 01-03-2024 UA Spec Desc Clean Catch (01/03/24 4:05 PM) Normal [facility] UA Auto SS Ambulatory Visit Summaryon 0 12-14-2023 Ambulatory Visit Summary Ambulatory Visit Summary LAINE LOPEZ :1955 Visit Date:12/14/2023 Ambulatory Visit Instructions Your Diagnosis Recurrent UTI Urge urinary incontinence Tests Performed XR Abdomen 1 View -- Results Pending -- Please visit your patient portal for your results or contact your primary care physician. Your Care Team Attending Physician - JULIA MORENO PA-C Primary Care Physician - Sinan Kendrick MD [...] JULIA MORENO PA-C, URL When: Where: [address] [place] [address] Medications What How Much When Instructions Unchanged [...] including vitamins, herbs, eye drops, creams, and wdyn-wto-mxnmlge medicines. ? Any problems you or family [...] tells you to take them. ? Taking gkfs-hmm-bvhidlu medicines, vitamins, herbs, and supplements. Tests You [...] These steps (more content not included)... Normal [facility] CBC AUTO DIFFon 05-31-2023 BASO # 0.0 103/ul Normal 0.0-0.1 [facility] Comment on above: Performed By: #### Lizzette GARCIA VITAD #### [facility] [address] [place] [address] Dr. Dario Umaña Basophils/100 WBC (Bld) 0.5 % Normal 0.2-2.0 [facility] Comment on above: Performed By: #### Lizzette GARCIA VITAD #### [facility] [address] [place] [address] Dr. Dario Umaña EO # 0.4 103/ul Normal 0.0-0.7 [facility] Comment on above: Performed By: #### Lizzette GARCIA VITAD #### [facility] [address] [place] [address] Dr. Dario Umaña Eosinophils/100 WBC (Bld) 5.3 % Normal 0.9-7.0 [facility] Comment on above: Performed By: #### Lizzette GARCIA VITAD #### [facility] [address] [place] [address] Dr. Dario Umaña Erythrocyte distribution width (RBC) [Ratio] 12.3 % Normal 11.0-15.0 [facility] Comment on above: Performed By: #### Lizzette GARCIA VITAD #### [facility] [address] [place] [address] Dr. Dario Umaña Hematocrit (Bld) [Volume fraction] 40.1 % Normal 36.0-48.0 [facility] Comment on above: Performed By: #### Lizzette GARCIA VITAD #### [facility] [address] [place] [address] Dr. Dario Umaña Hemoglobin (Bld) [Mass/Vol] 13.4 g/dL Normal 12.0-16.0 [facility] Comment on above: Performed By: #### Lizzette GARCIA VITAD #### [facility] [address] [place] [address] Dr. Dario Umaña IG # 0.02 10e3/ul Normal 0.00-0.03 [facility] Comment on above: Performed By: #### Lizzette GARCIA VITAD #### [facility] [address] [address] [address] Dario Umaña IG % 0.3 % Normal 0.0-0.5 [facility] Comment on above: Performed By: #### I RADHA, VITAD #### [facility] [address] [place] [address] Dr. Dario Umaña LYMPH # 2.6 103/ul Normal 1.2-3.8 [facility] Comment on above: Performed By: #### I RADHA, VITAD #### [facility] [address] [place] [address] Dr. Dario Umaña Lymphocytes/100 WBC (Bld) 38.6 % Normal 20.5-60.0 [facility] Comment on above: Performed By: #### I RADHA, VITAD #### [facility] [address] [place] [address] Dr. Dario Umaña MANUAL DIFF REQ NO Normal [facility] Comment on above: Performed By: #### I RADHA, VITAD #### [facility] [address] [place] [address] Dr. Dario Umaña MCH (RBC) [Entitic mass] 29.3 pg Normal 26.7-34.0 [facility] Comment on above: Performed By: #### I RADHA, VITAD #### [facility] [address] [place] [address] Dr. Dario Umaña MCHC (RBC) [Mass/Vol] 33.4 g/dL Normal 29.9-35.2 [facility] Comment on above: Performed By: #### I RADHA, VITAD #### [facility] [address] [place] [address] Dr. Dario Umaña MCV (RBC) [Entitic vol] 87.7 fL Normal 81.0-99.0 [facility] Comment on above: Performed By: #### I RADHA, VITAD #### [facility] [address] [place] [address] Dr. Dario Umaña MONO # 0.5 103/ul Normal 0.3-0.8 [facility] Comment on above: Performed By: #### I RADHA, VITAD #### [facility] [address] [place] [address] Dr. Dario Umaña Monocytes/100 WBC (Bld) 7.5 % Normal 1.7-12.0 [facility] Comment on above: Performed By: #### I RADHA, VITAD #### [facility] [address] [place] [address] Dr. Dario Umaña NEUT # 3.2 103/ul Normal 1.4-6.5 [facility] Comment on above: Performed By: #### I RADHA, VITAD #### [facility] [address] [place] [address] Dr. Dario Umaña Neutrophils/100 WBC (Bld) 47.8 % Normal 43.0-75.0 [facility] Comment on above: Performed By: #### I RADHA, VITAD #### [facility] [address] [place] [address] Dr. Dario Umaña Platelet mean volume (Bld) [Entitic vol] 8.7 fL Critically low 9.5-13.5 [facility] Comment on above: Performed By: #### I RADHA, VITAD #### [facility] [address] [place] [address] Dr. Dario Umaña PLT 200 103/ul Normal 150-450 [facility] Comment on above: Performed By: #### I RADHA, VITAD #### [facility] [address] [place] [address] Dr. Dario Umaña RBC 4.57 106/ul Normal 4.20-5.40 [facility] Comment on above: Performed By: #### I RADHA, VITAD #### [facility] [address] [place] [address] Dr. Dario Umaña WBC 6.6 103/ul Normal 4.0-11.0 [facility] Comment on above: Performed By: #### I RADHA, VITAD #### [facility] [address] [place] [address] ABD/PELV W CONon [...] Chest: Unremarkable. Liver: Normal enhancement and contour. Biliary/Gallbladder : Unremarkable. Pancreas: Unremarkable. Spleen: Unremarkable. Adrenal Glands: Unremarkable. Kidneys: Unremarkable. Gastrointestinal/Pe ritoneum: No acute abnormality. Mild colonic diverticulosis is [...] ASYA PLUMMER Date: 2022-11-11 10:01 Normal [facility] FREE THYROXINE INDEX T7on FTI 3.30 Normal 1.30-4.50 [facility] Comment on above: Performed By: #### C MP, TSH, LIPID, T7 #### [facility] [address] [address] [address] Dario Umaña T3U 33.0 % Normal 30.0-39.0 [facility] Comment on above: Performed By: #### C MP, TSH, LIPID, T7 #### [facility] [address] [place], [place] [address] Dr. Dario Umaña T4 [Mass/Vol] 10.00 ug/dL Normal 4.80-13.90 [facility] Comment on above: Performed By: #### C MP, TSH, LIPID, T7 #### [facility] [address] [place], [place] [address] Dr. Dario Umaña GLYCOHEMOGLOBIN A1Con 2022 ADA RECOMMENDATION SEE BELOW Normal [facility] Comment on above: Result Comment: ADA RECOMMENDED LIMIT 4.0 - 6.0 ADA THERAPEUTIC TARGET < 7.0 ACTION SUGGESTED > 7.0 Performed By: #### A 1C #### [facility] [address] [address] [address] Dario Umaña Glucose [Mass/Vol] 123 mg/dL Normal [facility] Comment on above: Performed By: #### A 1C #### [facility] [address] [address] [address] Dario Umaña HbA1c (Bld) [Mass fraction] 5.9 % Normal 4.5-6.2 [facility] Comment on above: Performed By: #### A 1C #### [facility] [address] [place] [address] Dr. Dario Umaña IRONon 11-11-2022 Iron [Mass/Vol] 92.0 ug/dL Normal 50.0-170.0 [facility] Comment on above: Performed By: #### I VALENTINO GARCIA #### [facility] [address] [place] [address] Dr. Dario Umaña LIPID PROFILEon 11-11-2022 CHOL-HDL RATIO NORM SEE BELOW Normal [facility] Comment on above: Result Comment: 3.3 - 4.4 LOW RISK 4.4 - 7.1 AVERAGE RISK 7.1 - 11.0 MODERATE RISK >11.0 HIGH RISK Performed By: #### C MP, TSH, LIPID, T7 #### [facility] [address] [address] [address] Dario Umaña Cholesterol [Mass/Vol] 174 mg/dL Normal <=200 [facility] Comment on above: Performed By: #### C MP, TSH, LIPID, T7 #### [facility] [address] [address] [address] Dario Umaña Cholesterol in HDL [Mass/Vol] 55 mg/dL Normal 40-60 [facility] Comment on above: Performed By: #### C MP, TSH, LIPID, T7 #### [facility] [address] [address] [address] Dario Umaña Cholesterol in LDL [Mass/Vol] 91.2 mg/dL Normal [facility] Comment on above: Performed By: #### C MP, TSH, LIPID, T7 #### [facility] [address] [place] [address] Dr. Dario Umaña Cholesterol.total/Chol esterol in HDL [Mass ratio] 3.2 {ratio} Normal [facility] Comment on above: Performed By: #### C MP, TSH, LIPID, T7 #### [facility] [address] [place] [address] Dr. Dario Umaña HDL NORMAL > or = 60 mg/dl - LOW CARDIOVASCULAR RISK <40 mg/dl - HIGH CARDIOVASCULAR RISK Normal [facility] Comment on above: Performed By: #### C MP, TSH, LIPID, T7 #### [facility] [address] [place] [address] Dr. Dario Umaña LDL CALC NORMAL SEE BELOW Normal [facility] Comment on above: Result Comment: <100 mg/dl OPTIMAL 100 - 129 mg/dl NEAR OR ABOVE OPTIMAL 130 - 159 mg/dl BORDERLINE HIGH 160 - 189 mg/dl HIGH >190 mg/dl VERY HIGH Performed By: #### C MP, TSH, LIPID, T7 #### [facility] [address] [place] [address] Dr. Dario Umaña Triglyceride [Mass/Vol] 139 mg/dL Normal <=150 [facility] Comment on above: Performed By: #### C MP, TSH, LIPID, T7 #### [facility] [address] [place] [address] Dr. Dario Umaña VLDL CALC 27.8 mg/dL Normal [facility] Comment on above: Performed By: #### C MP, TSH, LIPID, T7 #### [facility] [address] [place] [address] Dr. Dario Umaña MG MAMM SCREEN 3D LUBNA CADon 11-11-2022 MG MAMM SCREEN 3D LUBNA CAD Patient: LAINE LOPEZ Exam Date: 11/11/2022 : 1955 Gender:F Ordering : DR SINAN KENDRICK . Admission #: [id number] Family : Order #: [id number] CLICK HERE TO VIEW EXAM RADIOLOGY REPORT [...] No Treatments None Family Cancers None LOCATION: [facility] BREAST COMPOSITION: Almost entirely fatty. FINDINGS: [...] Baldwin M.D. on 11/11/2022 at 16:48 Normal [facility] PROF 14(COMP METB)on 023 Albumin [Mass/Vol] 3.9 g/dL Normal 3.4-5.0 [facility] Comment on above: Performed By: #### C MP, TSH, LIPID, T7 #### [facility] [address] [address] [address] Dario Umaña Albumin/Globulin [Mass ratio] 1.1 {ratio} Normal [facility] Comment on above: Performed By: #### C MP, TSH, LIPID, T7 #### [facility] [address] [place], [place] [address] Dr. Dario Umaña ALP [Catalytic activity/Vol] 76 U/L Normal 46-116 [facility] Comment on above: Performed By: #### C MP, TSH, LIPID, T7 #### [facility] [address] [place], [place] [address] Dr. Dario Umaña ALT [Catalytic activity/Vol] 38 U/L Normal 14-59 [facility] Comment on above: Performed By: #### C MP, TSH, LIPID, T7 #### [facility] [address] [address] [address] Dario Umaña Anion gap [Moles/Vol] 15.8 mmol/L Normal [facility] Comment on above: Performed By: #### C MP, TSH, LIPID, T7 #### [facility] [address] [address] [address] Dario Umaña AST [Catalytic activity/Vol] 21 U/L Normal 15-37 [facility] Comment on above: Performed By: #### C MP, TSH, LIPID, T7 #### [facility] [address] [address] [address] Dario Umaña Bilirubin [Mass/Vol] 0.5 mg/dL Normal 0.2-1.0 [facility] Comment on above: Performed By: #### C MP, TSH, LIPID, T7 #### [facility] [address] [place] [address] Dr. Dario Umaña Calcium [Mass/Vol] 9.0 mg/dL Normal 8.5-10.1 [facility] Comment on above: Performed By: #### C MP, TSH, LIPID, T7 #### [facility] [address] [address] [address] Dario Umaña Chloride [Moles/Vol] 105 mmol/L Normal 98-107 [facility] Comment on above: Performed By: #### C MP, TSH, LIPID, T7 #### [facility] [address] [address] [address] Dario Umaña CO2 [Moles/Vol] 22.6 mmol/L Normal 21.0-32.0 [facility] Comment on above: Performed By: #### C MP, TSH, LIPID, T7 #### [facility] [address] [address] [address] Dario Umaña Creatinine [Mass/Vol] 0.89 mg/dL Normal 0.55-1.02 [facility] Comment on above: Performed By: #### C MP, TSH, LIPID, T7 #### [facility] [address] [address] [address] Dario Umaña EGFR-AF SWEDISH >60 Normal >=60 [facility] Comment on above: Performed By: #### C MP, TSH, LIPID, T7 #### [facility] [address] [address] [address] Dario Umaña EGFR-NON AF SWEDISH >60 Normal >=60 [facility] Comment on above: Performed By: #### C MP, TSH, LIPID, T7 #### [facility] [address] [address] [address] Dario Umaña Globulin (S) [Mass/Vol] 3.6 g/dL Normal [facility] Comment on above: Performed By: #### C MP, TSH, LIPID, T7 #### [facility] [address] [place] [address] Dr. Draio Umaña Glucose [Mass/Vol] 120 mg/dL Critically high 74-106 [facility] Comment on above: Performed By: #### C MP, TSH, LIPID, T7 #### [facility] [address] [place] [address] Dr. Dario Umaña Potassium [Moles/Vol] 4.4 mmol/L Normal 3.5-5.1 [facility] Comment on above: Performed By: #### C MP, TSH, LIPID, T7 #### [facility] [address] [address] [address] Dario Umaña Protein [Mass/Vol] 7.5 g/dL Normal 6.4-8.2 [facility] Comment on above: Performed By: #### C MP, TSH, LIPID, T7 #### [facility] [address] [address] [address] Dario Umaña Sodium [Moles/Vol] 139 mmol/L Normal 136-145 [facility] Comment on above: Performed By: #### C MP, TSH, LIPID, T7 #### [facility] [address] [address] [address] Dario Umaña Urea nitrogen [Mass/Vol] 16.0 mg/dL Normal 7.0-18.0 [facility] Comment on above: Performed By: #### C MP, TSH, LIPID, T7 #### [facility] [address] [place] [address] Dr. Dario Umaña Urea nitrogen/Creatinine [Mass ratio] 18.0 mg/mg Normal [facility] Comment on above: Performed By: #### C MP, TSH, LIPID, T7 #### [facility] [address] [place] [address] Dr. Dario Umaña TSHon 11-11-2022 TSH 3.151 uIU/mL Normal 0.358-3.740 [facility] Comment on above: Performed By: #### C MP, TSH, LIPID, T7 #### [facility] [address] [place] [address] Dr. Dario Umaña UA RANDOMon 11-11-2022 Bilirubin Ql (U) Negative Normal NEGATIVE [facility] Comment on above: Performed By: #### U A #### [facility] [address] [place] [address] Dr. Dario Umaña Clarity (U) CLEAR Normal CLEAR [facility] Comment on above: Performed By: #### U A #### [facility] [address] [place] [address] Dr. Dario Umaña Color (U) LT. YELLOW Normal YELLOW [facility] Comment on above: Performed By: #### U A #### [facility] [address] [place] [address] Dr. Dario Umaña Glucose Ql (U) Negative Normal NEGATIVE [facility] Comment on above: Performed By: #### U A #### [facility] [address] [place] [address] Dr. Dario Umaña Hemoglobin Ql (U) Negative Normal NEGATIVE [facility] Comment on above: Performed By: #### U A #### [facility] [address] [place] [address] Dr. Dario Umaña Ketones Ql (U) Negative Normal NEGATIVE [facility] Comment on above: Performed By: #### U A #### [facility] Laboratory [address] [place] [address] Dr. Dario Umaña LEUKOCYTES MODERATE Abnormal NEGATIVE [facility] Comment on above: Performed By: #### U A #### [facility] [address] [place] [address] Dr. Dario Umaña Nitrite Ql (U) Positive Abnormal NEGATIVE [facility] Comment on above: Performed By: #### U A #### [facility] [address] [place] [address] Dr. Dario Umaña pH (U) 5.5 [pH] Normal 5-9 [facility] Comment on above: Performed By: #### U A #### [facility] [address] [place] [address] Dr. Dario Umaña SPEC GRAVITY 1.025 Normal 1.005-<=1.025 [facility] Comment on above: Performed By: #### U A #### [facility] [address] [place] [address] Dr. Dario Umaña UA PROTEIN Negative Normal NEGATIVE/ TRACE [facility] Comment on above: Performed By: #### U A #### [facility] [address] [place] [address] Dr. Dario Umaña Urobilinogen Qn (U) 0.2 {German'U}/dL Normal 0.2 - 1. 0 [facility] Comment on above: Performed By: #### U A #### [facility] [address] [place] [address] Dr. Dario Umaña VITAMIN D 25 OHon 11-11-2022 VIT D 25-OH 71.1 ng/mL Normal [facility] Comment on above: Performed By: #### I RADHA VITAD #### [facility] [address] [place] [address] Dr. Dario Umaña VIT D RANGES SEE BELOW Normal [facility] Comment on above: Result Comment: <20 ng/mL Vit D deficient 20 - <30 ng/mL Vit D insufficient 30 - 100 ng/mL Vit D sufficient >100 ng/mL Potential Toxicity Performed By: #### I RADHA VITAD #### [facility] [address] [place] [address] Dr. Dario Umaña Superficial Wound Cultureon 10-22-2022 Superficial Wound Culture ORGANISM: Proteus vulgaris group (O:PROVULGRP) Quantity of Growth Moderate Growth Aerobic BENEDICTO Charge (NMIC56) ------ SUSCEPTIBILITY ----- ORGANISM: O:PROVULGRP ANTIBIOTIC INTERPRETATION BENEDICTO Amikacin S <16 Amoxacillin/K Clavulanate S <8 Ampicillin/Sulbacta m S 88/4 Aztreonam S <4 Cefepime S <2 Ceftazidime S <1 Ceftriaxone S <1 Ciprofloxacin S <0.25 Ertapenem S <0.5 Gentamicin S <2 Levofloxacin S <0.5 Meropenem S <1 Piperacillin/Tazoba ctam S <8 Tobramycin S <2 Trimethoprim/Sulfam ethoxazole S <0.5 S = SUSCEPTIBLE I = [...] RESISTANT TO ALL B-LACTAM DRUGS. PERFORMED BY: [place] [address] PATHOLOGIST RADIATION ENGINEER DORETHA BLOOD M.D. [facility] Comment on above: Performed By: #### C USUP #### [address] Vital Signs Date Time Vital Sign Value Performing Clinician Lalit pablo 08-09-2024 13:22-0500 Blood Pressure Location Gulshan VILLALOBOS [facility] 08-09-2024 13:22-0500 Diastolic blood pressure 66 mm[Hg] Gulshan VILLALOBOS [facility] 08-09-2024 13:22-0500 Heart rate 79 /min Gulshan VILLALOBOS [facility] 08-09-2024 13:22-0500 Respiratory rate 16 /min Gulshan NILL [facility] 08-09-2024 13:22-0500 Systolic blood pressure 111 mm[Hg] Gulshan NILL [facility] 05-31-2024 09:16-0500 Blood Pressure Location Audrey Lue [facility] 05-31-2024 09:16-0500 Diastolic blood pressure 66 mm[Hg] Audrey Lue [facility] 05-31-2024 09:16-0500 Heart rate 64 /min Audrey Lue [facility] 05-31-2024 09:16-0500 Systolic blood pressure 106 mm[Hg] Audrey Lue [facility] 03-08-2024 08:14-0400 Blood Pressure Location Audrey Lue [facility] 03-08-2024 08:14-0400 Diastolic blood pressure 79 mm[Hg] Audrey Lue [facility] 03-08-2024 08:14-0400 Heart rate 68 /min Audrey Lue [facility] 03-08-2024 08:14-0400 Respiratory rate 16 /min Audrey Lue [facility] 03-08-2024 08:14-0400 Systolic blood pressure 131 mm[Hg] Audrey Lue [facility] 12-14-2023 13:09-0400 Blood Pressure Location JULIA MORENO [facility] 12-14-2023 13:09-0400 Diastolic blood pressure 72 mm[Hg] JULIA MORENO [facility] 12-14-2023 13:09-0400 Heart rate 77 /min JULIA MORENO [facility] 12-14-2023 13:09-0400 Respiratory rate 19 /min JULIAOVI MORENO [facility] 12-14-2023 13:09-0400 Systolic blood pressure 120 mm[Hg] JULIAOVI MORENO [facility] Encounters Encounter Date Encounter Type Care Provider Facility Start: 08-09-2024 End: 08-09-2024 Lab Drop off Florinda Chapa [facility] Start: 08-09-2024 End: 08-09-2024 ambulatory Florinda Chapa Facility:[facility] Start: 08-09-2024 End: 08-09-2024 Patient encounter procedure Gulshan VILLALOBOS [facility] Start: 07-03-2024 End: 07-03-2024 Lab Drop off JULIA MORENO [facility] Start: 07-03-2024 End: 07-03-2024 ambulatory JULIA MORENO Facility:[facility] Start: 07-03-2024 End: 07-03-2024 Patient encounter procedure Audrey Booker [facility] Start: 05-31-2024 End: 05-31-2024 ambulatory Audrey M. Lue Facility:[facility] Start: 05-31-2024 End: 05-31-2024 Patient encounter procedure Audrey M. Lue [facility] Start: 05-26-2024 End: 05-26-2024 Lab Drop off Audrey M. Lue [facility] Start: 05-26-2024 End: 05-26-2024 ambulatory Audrey M. Lue Facility:[facility] Start: 05-26-2024 End: 05-26-2024 Patient encounter procedure Audrey M. Lue [facility] Start: 03-08-2024 End: 03-08-2024 Lab Drop off Audrey M. Lue [facility] Start: 03-08-2024 End: 03-08-2024 ambulatory Audrey M. Lue Facility:[facility] Start: 03-08-2024 End: 03-08-2024 Patient encounter procedure Audrey M. Lue [facility] Start: 01-27-2024 End: 01-27-2024 Lab Drop off Yumiko X Orzech [facility] Start: 01-27-2024 End: 01-27-2024 Patient encounter procedure Audrey M. Lue [facility] Start: 01-03-2024 End: 01-03-2024 ambulatory Audrey Booker Facility:[facility] Start: 01-03-2024 End: 01-03-2024 Patient encounter procedure Audrey Booker [facility] Start: 12-14-2023 End: 12-14-2023 ambulatory Sinan Kendrick [facility] Start: 12-14-2023 End: 12-14-2023 Patient encounter procedure JULIA MORENO [facility] Start: 09-17-2023 ambulatory Audrey Booker Facility:[facility] Start: 11-11-[address] SINAN KENDRICK . Facili ty:[facility] Start: 10-22-2022 End: 10-22-2022 ambulatory Christophe Louis Facility:[facility] Start: 10-22-2022 End: 10-22-2022 ambulatory MD Christophe Louis Work Phone: [facility] Work Phone: Start: 10-22-2022 End: 10-22-2022 Patient encounter procedure MD Christophe Louis Work Phone: [facility] [place] Work Phone: Procedures Date Procedure Procedure Detail Performing Clinician Start: 06-14-2014 Colonoscopy Gulshan LEWIS section JULIA RANGEL section Gulshan HAYWARD L Incision of nerve Gulshan LEWIS Tonsillectomy JULIA MORENO Plan of Treatment Date Care Activity Detail Author Start: 10-25-2024 ambulatory Ambulatory Facility:[facility] Start: 10-22-2022 Superficial Wound Culture Superficial Wound Culture [facility] Bacteria identified in Unspecified specimen by Aerobe culture [facility] Immunizations Immunization Date Immunization Notes Care Provider Fa tram 07-27-2023 zoster vaccine recombinant Audrey Lue [facility] 03-26-2023 influenza virus vaccine, unspecified formulation Audrey Lue [facility] 03-26-2023 zoster vaccine recombinant Audrey Lue [facility] 10-28-2020 SARS-CoV-2 (COVID-19 ) mRNA BNT-162b2 vax Audrey Lue [facility] 10-07-2020 SARS-CoV-2 (COVID-19 ) mRNA BNT-162f2 vax Audrey Lue [facility] 04-10-2020 influenza virus vaccine, unspecified formulation Audrey Lue [facility] 03-29-2019 influenza virus vaccine, unspecified formulation Audrey Lue [facility] 04-18-2018 influenza virus vaccine, unspecified formulation Audrey Lue [facility] 03-23-2017 influenza virus vaccine, unspecified formulation Audrey Lue [facility] 03-23-2017 zoster vaccine, live Audrey L ue [facility] 03-16-2016 influenza virus vaccine, unspecified formulation Audrey Lue [facility] 03-25-2015 influenza virus vaccine, unspecified formulation Audrey Lue [facility] Payers Date Payer Category Payer Self-pay 1958 Medicare [id number] 1955 Unknown [id number] 2.16.84 [id number] 1955 Unknown [id number] 2.16.8 [id number] 1955 Unknown [id number] 2.16.8 [id number] 1956 Unknown [id number] 2.16.8 40.1.136200.3.579.2. 1956 Unknown [id number] 2.16.8 40.1.216408.3.579.2. 1956 Unknown [id number] 2.16.8 40.1.503885.3.579.2. 1956 Unknown [id number] 2.16.8 40.1.541450.3.579.2. 1956 Unknown [id number] 2.16.8 40.1.089627.3.579.2. 1956 Unknown [id number] 2.16.8 40.1.601530.3.579.2. 1956 Unknown [id number] 2.16.8 40.1.470295.3.579.2. 1956 Unknown [id number] 2.16.8 40.1.416147.3.579.2. 1956 Unknown [id number] 2.16.8 40.1.770490.3.579.2. 1956 Unknown [id number] 2.16.8 40.1.664112.3.579.2.72 1956 Unknown [id number] 2.16.8 40.1.818546.3.579.2.727 1955 Unknown [id number] 2.16.8 40.1.325236.3.579.2.727 Unknown [id number] 2.16.8 [id number] Social History Date Type Detail Facility [facility] Work Phone: Start: 1955 Sex Assigned At Female F [facility] Start: 12-14-2023 End: 08-09-2024 Tobacco smoking status Never smoked tobacco (finding) [facility] Sex Assigned At Female [facility] Tobacco smoking status Never [facility] Functional Status Date Assessment Result Facility 08-09-2024 Functional Status N/A [facility] 05-31-2024 Functional Status N/A [facility] 03-08-2024 Functional Status N/A [facility] 01-03-2024 Functional Status N/A [facility] 12-14-2023 Functional Status N/A [facility] Clinical Notes 12-14-2023 to 08-09-2024 Note Date & Type Note Facility 08-09-2024 Note General Surgery Offi ce/Clinic Note Chief Complaint consultation for screening colonoscopy HPI Staff 68 year old female presents on consultation from Dr. Kendrick for screening colonoscopy. Denies abdominal pain. Rare rectal pain and bleeding for which she contributes to known hemorrhoids. Denies change in bowel habits, nausea or vomiting. No unexplained weight loss. Last colonoscopy completed 2014 with ascending tubular adenoma. Father with history of colon cancer- age 80. History of Present Illness 68 yo female with h/o DMII, htn, hypothyroidism, SUSAN, cervical radiculopathy, referred for colorectal screening; denies change in bms, some blood in stools with wiping and in stool, which she attributes to a hemorrhoid flare up, no abd complaints; last colonoscopy 2014 with removal of small tubular adenoma from ascending colon; abd operations significant for x 2; no tobacco use; fmhx of colon cancer in patient's father, dx in his 80's, no fmhx of IBD. Review of Systems PHQ Score Initial Depression Screen Score: 0 SCORE ROS - Provider Constitutional: no fever, no sweats, no weight loss. Eyes: yes glasses, no blurred vision, no visual loss. ENMT: no dentures, no hoarseness, no swallowing difficulties, no hearing loss, no ear infection(s), no nose bleeds. Cardiovascular: normal blood pressure, no chest pain, regular heartbeat, no heart murmur. Respiratory: no shortness of breath, no cough, no asthma, no wheezing. Gastrointestinal: no nausea, no vomiting, no diarrhea, no constipation, no blood in stool, no change in bowel habits, no abdominal pain, no hepatitis. Genitourinary: no kidney stones, no urine infection, no dysuria. Musculoskeletal: no pain, no weakness. Skin: no changing moles, no rash, no skin lumps. Neurologic: no seizures, no epilepsy, no headache. Psychiatric: no emotional or psychiatric problem. Heme/Lymph: no bleeding problems, no anemia, no blood clots, no transfusions. Allergy/Immunologic: no swollen lymph nodes/glands, no IV drug abuse. Other: Additional ROS info: Except as noted in the above Review of Systems and in the History of Present Illness, all other systems have been reviewed and are negative or noncontributory. Physical Exam Vitals & Measurements HR: 79(Peripheral) RR: 16 BP: 111/66 HT: 65 in HT: 165 cm WT: 94.4 kg WT: 208.116 lb BMI: 34.67 HEENT: normal conjunctiva, sclera clear, no scleral icterus, EOM intact, PERRLA, oral mucosa moist without lesions. Neck: trachea midline, no mass, symmetric, no thyromegaly or nodules, no adenopathy Respiratory: lungs CTA, respirations non labored. Cardiovascular: regular rate and rhythm, no murmur, no pedal edema or varicosities. Gastrointestinal: obese, soft, non distended, no tenderness, no masses, no palpable hernias, diastasis recti no, no hepatosplenomegaly; normal bs Lymphatic: no cervical adenopathy, no supraclavicular adenopathy. Musculoskeletal: normal gait, digits and nails without infection, nodes, cyanosis, clubbing. Skin: no rashes, no lesions, no ulcers, no subcutaneous nodules, induration. Psychiatric/Neuro: oriented to time, place, person, judgement normal, affect appropriate for age, insight intact, no focal deficits. Tests:, review of old records completed , Discussed surgical options, risks, and possible complications with patient. Assessment/Plan 1. Personal history of adenomatous and serrated colon polyps (Z86.0101: Personal history of adenomatous and serrated colon polyps) plan colonoscopy under anesthesia, informed consent obtained. 2. Family history of colon cancer in father (Z80.0: Family history of malignant neoplasm of digestive organs) see # 1 Follow-up No qualifying data available Problem List/Past Medical History Ongoing BMI 34.0-34.9,adult Cervical radiculopathy Diabetes Family history of colon cancer in father Hypertension Hypothyroidism Memory loss Obesity due to excess calories SUSAN (obstructive sleep apnea) Personal history of adenomatous and serrated colon polyps Postinfective urethral stricture in female Recurrent UTI Urge urinary incontinence Historical No qualifying data Procedure/Surgical History Colonoscopy (2014), section, section, Neurotomy, Tonsillectomy. Medications Albuterol (Eqv-ProAir HFA) 90 mcg/inh inhalation aerosol, 2 inh, Inhalation, q4hr, PRN Estrace 0.1 mg/g Cream, See Instructions, 6 refills irbesartan 150 mg Tab, 150 mg= 1 tab(s), Oral, Daily liothyronine 5 mcg Tab, 10 mcg= 2 tab(s), Oral, Daily methenamine hippurate 1 g oral tablet, 1 gm= 1 tab(s), Oral, BID, 3 refills Metoprolol tartrate 50 mg Tab, 50 mg= 1 tab(s), Oral, BID trospium 20 mg oral tablet, 20 mg= 1 tab(s), Oral, qPM, 11 refills Allergies sulfa drugs (Rash) Social History Alcohol - Denies Alcohol Use, 12/14/2023 Never., 05/30/2024 Substance Abuse Never., 05/30/2024 Tobacco Never (less than 100 in lifetime) Tobacco Use:. Never Smokeless Tobacc (more content not included)... [facility] Comment on above: Result Comment: Elec tronically Signed By: GRISELDA JONES, Gulshan Talbot\Date and Time Signed: 08/09/24 13:45 EST 05-31-2024 Hospital Discharg e instructions Patient Education 05/31/2024 09:52:12 Atrophic Vaginitis Atrophic Vaginitis Atrophic vaginitis is a condition in which the tissues that line the vagina become dry and thin. This condition is most common in women who have stopped having regular menstrual periods (are in menopause). This usually starts when a woman is 45 to 55 years old. That is the time when a woman's estrogen levels begin to decrease. Estrogen is a female hormone. It helps to keep the tissues of the vagina moist. It stimulates the vagina to produce a clear fluid that lubricates the vagina for sex. This fluid also protects the vagina from infection. Lack of estrogen can cause the lining of the vagina to get thinner and dryer. The vagina may also shrink in size. It may become less elastic. Atrophic vaginitis tends to get worse over time as a woman's estrogen level drops. What are the causes? This condition is caused by the normal drop in estrogen that happens around the time of menopause. What increases the risk? Certain conditions or situations may lower a woman's estrogen level, leading to a higher risk for atrophic vaginitis. You are more likely to develop this condition if: You are taking medicines that block estrogen. You have had your ovaries removed. You are being treated for cancer with radiation or medicines (chemotherapy). You have given or are . You are older than age 50. You smoke. What are the signs or symptoms? Symptoms of this condition include: Pain, soreness, a feeling of pressure, or bleeding during sex (dyspareunia). Vaginal burning, irritation, or itching. Pain or bleeding when a speculum is used in a vaginal exam. Having burning pain while urinating. Vaginal discharge. In some cases, there are no symptoms. How is this diagnosed? This condition is diagnosed based on your medical history and a physical exam. This will include a pelvic exam that checks the vaginal tissues. Though rare, you may also have other tests, including: A urine test. A test that checks the acid balance in your vagina (acid balance test). How is this treated? Treatment for this condition depends on how severe your symptoms are. Treatment may include: Using an fqju-vwr-ibqynoc vaginal lubricant before sex. Using a long-acting vaginal moisturizer. Using low-dose estrogen for moderate to severe symptoms that do not respond to other treatments. Options include creams, tablets, and inserts (vaginal rings). Before you use a vaginal estrogen, tell your health care provider if you have a history of: ?Breast cancer. ?Endometrial cancer. ?Blood clots. If you are not sexually active and your symptoms are very mild, you may not need treatment. Follow these instructions at home: Medicines Take vcti-wfg-wdvzvwe and prescription medicines only as told by your health care provider. Do not use herbal or alternative medicines unless your health care provider says that you can. Use hkoi-uxn-niattkw creams, lubricants, or moisturizers for dryness only as told by your health care provider. General instructions If your atrophic vaginitis is caused by menopause, discuss all of your menopause symptoms and treatment options with your health care provider. Do not douche. Do not use products that can make your vagina dry. These include: ?Scented feminine sprays. ?Scented tampons. ?Scented soaps. Vaginal sex can help to improve blood flow and elasticity of vaginal tissue. If you choose to have sex and it hurts, try using a water-soluble lubricant or moisturizer right before having sex. Contact a health care provider if: Your discharge looks different than normal. Your vagina has an unusual smell. You have new symptoms. Your symptoms do not improve with treatment. Your symptoms get worse. Summary Atrophic vaginitis is a condition in which the tissues that line the vagina become dry and thin. It is most common in women who have stopped having regular menstrual periods (are in menopause). Treatment options include using vaginal lubricants and low-dose vaginal estrogen. Contact a health care provider if your vagina has an unusual smell, or if your symptoms get worse or do not improve after treatment. This information is not intended to replace advice given to you by your health care provider. Make sure you discuss any questions you have with your health care provider. Document Revised: 11/28/2020 Document Reviewed: 11/28/2020 [employer] Patient Education 2023 [employer]. Follow Up Care 03/08/2024 08:49:31 With:Jhony JONES, BRIJESH Mora, URO Address: [address] [place] [address] [phone] When: Unknown Comments:3 mos w/ KORI [facility] 05-31-2024 Note Patient Education Obstetrics and Gynecology Atrophic Vaginitis Atrophic vaginitis is a condition in which the tissues that line the vagina become dry and thin. This condition is most common in women who have stopped having regular menstrual periods (are in menopause). This usually starts when a woman is 45 to 55 years old. That is the time when a woman's estrogen levels begin to decrease. Estrogen is a female hormone. It helps to keep the tissues of the vagina moist. It stimulates the vagina to produce a clear fluid that lubricates the vagina for sex. This fluid also protects the vagina from infection. Lack of estrogen can cause the lining of the vagina to get thinner and dryer. The vagina may also shrink in size. It may become less elastic. Atrophic vaginitis tends to get worse over time as a woman's estrogen level drops. What are the causes? This condition is caused by the normal drop in estrogen that happens around the time of menopause. What increases the risk? Certain conditions or situations may lower a woman's estrogen level, leading to a higher risk for atrophic vaginitis. You are more likely to develop this condition if: ??? You are taking medicines that block estrogen. ??? You have had your ovaries removed. ??? You are being treated for cancer with radiation or medicines (chemotherapy). ??? You have given or are . ??? You are older than age 50. ??? You smoke. What are the signs or symptoms? Symptoms of this condition include: ??? Pain, soreness, a feeling of pressure, or bleeding during sex (dyspareunia). ??? Vaginal burning, irritation, or itching. ??? Pain or bleeding when a speculum is used in a vaginal exam. ??? Having burning pain while urinating. ??? Vaginal discharge. In some cases, there are no symptoms. How is this diagnosed? This condition is diagnosed based on your medical history and a physical exam. This will include a pelvic exam that checks the vaginal tissues. Though rare, you may also have other tests, including: ??? A urine test. ??? A test that checks the acid balance in your vagina (acid balance test). How is this treated? Treatment for this condition depends on how severe your symptoms are. Treatment may include: ??? Using an aeql-ohq-lmhjjzk vaginal lubricant before sex. ??? Using a long-acting vaginal moisturizer. ??? Using low-dose estrogen for moderate to severe symptoms that do not respond to other treatments. Options include creams, tablets, and inserts (vaginal rings). Before you use a vaginal estrogen, tell your health care provider if you have a history of: ? Breast cancer. ? Endometrial cancer. ? Blood clots. If you are not sexually active and your symptoms are very mild, you may not need treatment. Follow these instructions at home: Medicines ??? Take bksy-flk-iyypqxo and prescription medicines only as told by your health care provider. ??? Do not use herbal or alternative medicines unless your health care provider says that you can. ??? Use uitr-rdc-nngaxgd creams, lubricants, or moisturizers for dryness only as told by your health care provider. General instructions ??? If your atrophic vaginitis is caused by menopause, discuss all of your menopause symptoms and treatment options with your health care provider. ??? Do not douche. ??? Do not use products that can make your vagina dry. These include: ? Scented feminine sprays. ? Scented tampons. ? Scented soaps. ??? Vaginal sex can help to improve blood flow and elasticity of vaginal tissue. If you choose to have sex and it hurts, try using a water-soluble lubricant or moisturizer right before having sex. Contact a health care provider if: ??? Your discharge looks different than normal. ??? Your vagina has an unusual smell. ??? You have new symptoms. ??? Your symptoms do not improve with treatment. ??? Your symptoms get worse. Summary ??? Atrophic vaginitis is a condition in which the tissues that line the vagina become dry and thin. It is most common in women who have stopped having regular menstrual periods (are in menopause). ??? Treatment options include using vaginal lubricants and low-dose vaginal estrogen. ??? Contact a health care provider if your vagina has an unusual smell, or if your symptoms get worse or do not improve after treatment. This information is not intended to replace advice given to you by your health care provider. Make sure you discuss any questions you have with your health care provider. Document Revised: 11/28/2020 Document Reviewed: 11/28/2020 [employer] Patient Education ? 2023 [facility] Hospital Discharg e instructions Patient Education 03/08/2024 08:41:46 Urinary Tract Infection, Adult Urinary Tract Infection, [...] Treatment for this condition includes: Antibiotic medicine. Tjbm-wge-krmiriq medicines to treat discomfort. Drinking enough water [...] Follow these instructions at home: Medicines Take gxaj-otb-wydneoc and prescription medicines only as told by [...] with your health care provider. Document Revised: 01/05/2021 Document Reviewed: 01/10/2021 [employer] Patient Education 2023 [employer]. 03/08/2024 08:41:45 Overactive Bladder, Adult Overactive Bladder, Adult Overactive bladder is a condition in which a person has a sudden and frequent need to urinate. A person might also leak urine if he or she cannot get to the bathroom fast enough (urinary incontinence). Sometimes, symptoms can interfere with work or social activities. What are the causes? Overactive bladder is associated with poor nerve signals between your bladder and your brain. Your bladder may get the signal to empty before it is full. You may also have very sensitive muscles that make your bladder squeeze too soon. This condition may also be caused by other factors, such as: Medical conditions: ?Urinary tract infection. ?Infection of nearby tissues. ?Prostate enlargement. ?Bladder stones, inflammation, or tumors. ?Diabetes. ?Muscle or nerve weakness, especially from these conditions: ?A spinal cord injury. ?Stroke. ?Multiple sclerosis. ?Parkinson's disease. Other causes: ?Surgery on the uterus or urethra. ?Drinking too much caffeine or alcohol. ?Certain medicines, especially those that eliminate extra fluid in the body (diuretics). ?Constipation. What increases the risk? You may be at greater risk for overactive bladder if you: Are an older adult. Smoke. Are going through menopause. Have prostate problems. Have a neurological disease, such as stroke, dementia, Parkinson's disease, or multiple sclerosis (MS). Eat or drink alcohol, spicy food, caffeine, and other things that irritate the bladder. Are overweight or obese. What are the signs or symptoms? Symptoms of this condition include a sudden, strong urge to urinate. Other symptoms include: Leaking urine. Urinating 8 or more times a day. Waking up to urinate 2 or more times overnight. How is this diagnosed? This condition may be diagnosed based on: Your symptoms and medical history. A physical exam. Blood or urine tests to check for possible causes, such as infection. You may also need to see a health care provider who specializes in urinary tract problems. This is called a urologist. How is this treated? Treatment for overactive bladder depends on the cause of your condition and whether it is mild or severe. Treatment may include: Bladder training, such as: ?Learning to control the urge to urinate by following a schedule to urinate at regular intervals. ?Doing Kegel exercises to strengthen the pelvic floor muscles that support your bladder. Special devices, such as: ?Biofeedback. This uses sensors to help you become aware of your body's signals. ?Electrical stimulation. This uses electrodes placed inside the body (implanted) or outside the body. These electrodes send gentle pulses of electricity to strengthen the nerves or muscles that control the bladder. ?Women may use a plastic device, called a pessary, that fits into the vagina and supports the bladder. Medicines, such as: ?Antibiotics to treat bladder infection. ?Antispasmodics to stop the bladder from releasing urine at the wrong time. ?Tricyclic antidepressants to relax bladder muscles. ?Injections of botulinum toxin type A directly into the bladder tissue to relax bladder muscles. Surgery, such as: ?A device may be implanted to help manage the nerve signals that control urination. ?An electrode may be implanted to stimulate electrical signals in the bladder. ?A procedure may be done to change the shape of the bladder. This is done only in very severe cases. Follow these instructions at home: Eating and drinking Make diet or lifestyle changes recommended by your health care provider. These may include: ?Drinking fluids throughout the day and not only with meals. ?Cutting down on caffeine or alcohol. ?Eating a healthy and balanced diet to prevent constipation. This may include: ?Choosing foods that are high in fiber, such as beans, whole grains, and fresh fruits and vegetables. ?Limiting foods that are high in fat and processed sugars, such as fried and sweet foods. Lifestyle Lose weight if needed. Do not use any products that contain nicotine or tobacco. These include cigarettes, chewing tobacco, and vaping devices, such as e-cigarettes. If you need help quitting, ask your health care provider. General instructions Take enmr-vii-tpcjwrw and prescription medicines only as told by your health care provider. If you were prescribed an antibiotic medicine, take it as told by your health care provider. Do not stop taking the antibiotic even if you start to feel better. Use any implants or pessary as told by your health care provider. If needed, wear pads to absorb urine leakage. Keep a log to track how much and when you drink, and when you need to urinate. This will help your health care provider monitor your condition. Keep all follow-up visits. This is important. Contact a health care provider if: You have a fever or chills. Your symptoms do not get better with treatment. Your pain and discomfort get worse. You have more frequent urges to urinate. Get help right away if: You are not able to control your bladder. Summary Overactive bladder refers to a condition in which a person has a sudden and frequent need to urinate. Several conditions may lead to an overactive bladder. Treatment for overactive bladder depends on the cause and severity of your condition. Making lifestyle changes, doing Kegel exercises, keeping a log, and taking medicines can help with this condition. This information is not intended to replace advice given to you by your health care provider. Make sure you discuss any questions you have with your health care provider. Document Revised: 02/17/2021 Document Reviewed: 02/17/2021 [employer] Patient Education 2023 [employer]. Follow Up Care 01/03/2024 11:05:30 With:Jhony JONES, BRIJESH Mora, URO Address: When: Unknown Comments:3 mos [facility] 03-08-2024 Note Patient Education Obstetrics and Gynecology Urinary [...] this condition includes: ? Antibiotic medicine. ? Matl-igd-alitqek medicines to treat discomfort. ? Drinking enough [...] these instructions at home: Medicines ? Take tkqo-xzc-lqpstzf and prescription medicines only as told by [...] with your health care provider. Document Revised: 01/05 (more content not included)... [facility] 01-03-2024 Evaluation + Plan note Extrac khoi from: Title: - [facility] HOP Note Author:Audrey Booker MD Date:01/03/24 Impression and Plan Assessment and Plan: Diagnosis: UTI symptoms (HWZ66-ZH R39.9, Working, Medical), Urethral meatal stenosis (JHF97-KV N35.919, Working, Medical), Recurrent UTI (HWR88-QC N39.0, Working, Medical), Urge urinary incontinence (PZN34-YN N39.41, Discharge, Medical). 68 year old female here for cystoscopy possible UD for hx of urge incontinence and recurrent UTIs 1. Urethral stenosis - on cysto today s/p dilation after risks/benefits discussed. Pt to monitor dilation symptoms. Prophy abx sent- cipro -Start estrace cream. 2. Recurrent UTIs - has not started estrace cream. Discussed indications, pt will start KUB neg -start estrace -Re-eval after UD. Consider OTC pills -F/u UCx from today, if positive but resistant to cipro, will need new abx rx. Otherwise no further abx, 3 days cipro given 3. Urge incontinence -Oxybuytnin mild benefit, take more routinely -Re-eval after estrace and UD -PFPT at home Future Appointments Appointment Date:03/08/2024 08:00:00 AM Scheduled Provider:Audrey Booker MD Location:[facility] Appointment Type:URO Office Visit [facility]07-22-2024 NoteProgress Note-Physician Patient: LAINE LOPEZ Age: 68 years Sex: Female : 1955 Associated Diagnoses: None Author: Audrey Booker MD Health Status Allergies: Allergic Reactions (Selected) Severity Not Documented Sulfa drugs- Rash., Allergies (1) Active Severity Reaction sulfa drugs Rash Current medications: (Selected) Prescriptions Prescribed Cipro 500 mg Tab: 500 mg = 1 tab(s), Oral, q12hr, X 3 day(s), # 6 tab(s), Refills(s) 0, Pharmacy: [id number], 165, cm, 01/03/24 10:27:00 EDT, Height/Length Dosing, 95.6, kg, 01/03/24 10:27:00EDT, Weight Dosing Estrace 0.1 mg/g Cream: See Instructions, 42.5 gm, Refill(s) 6, apply 1gm vaginally w plunger and apea-sized amount around the urethra w your finger nightly x 3 weeks then 3x per week thereafter, [id number], 165, cm, 12/14/23 13:44:00 EDT, Height/Length Dosing, 95.6... Documented Medications Documented Metoprolol tartrate 50 mg Tab: 50 mg = 1 tab(s), Oral, BID, Refills(s) 0 lisinopril 10 mg Tab: 10 mg = 1 tab(s), Oral, Daily, Refills(s) 0 oxybutynin 5 mg Tab: 5 mg = 1 tab(s), Oral, PRN for urinary discomfort Impression and Plan Assessment and Plan: Diagnosis: UTI symptoms (HFW07-ZG R39.9, Working, Medical), Urethral meatal stenosis (PVH77-FD N35.919, Working, Medical), Recurrent UTI (TBN12-ON N39.0, Working, Medical), Urge urinary incontinence (QSH08-GY N39.41, Discharge, Medical). 68 year old female here for cystoscopy possible UD for hx of urge incontinence and recurrent UTIs 1. Urethral stenosis - on cysto today s/p dilation after risks/benefits discussed. Pt to monitor dilation symptoms. Prophy abx sent- cipro -Start estrace cream. 2. Recurrent UTIs - has not started estrace cream. Discussed indications, pt will start KUB neg -start estrace -Re-eval after UD. Consider OTC pills -F/u UCx from today, if positive but resistant to cipro, will need new abx rx. Otherwise no furtherabx, 3 days cipro given 3. Urge incontinence -Oxybuytnin mild benefit, take more routinely -Re-eval after estrace and [facility]Result Comment: Electronically Signed By: Jhony JONES, Audrey Wong.br\Date and Time Signed: 01/03/24 13:[id number] Hospital Discharge instructions Patient Education 01/03/2024 11:01:01 EU - Cystoscopy Discharge Instructions (CUSTOM) Cystoscopy Voiding after the procedure: there may be some pain, burning, urgency, frequency and blood tinged urine following the procedure. These symptoms usually resolve within 2-5 days. Drink the amount of fluid it takes to keep the urine pink to yellow or clear in color. Drinking enough water and fluids will help to ease any discomfort after your procedure. If you are having problems that seem out of the ordinary, please call. If unable to contact your physician and you feel it is an emergency, go to the nearest emergency room or call 911 Diet you may resume your normal diet. Activity you may resume your normal activities Call if you have a fever over 100 degrees. Follow Up Care 12/20/2023 16:07:12 With:Audrey Booker Address: [facility], [address] [address]- [phone] Business (1) When: Unknown Comments:Office to schedule follow up in 1-2 months [facility]07-22-2024 NotePatient Education Cystoscopy ? Voiding after the procedure: there may be some pain, burning, urgency, frequency and blood tingedurine following the procedure. These symptoms usually resolve within 2-5 days. Drink the amount of fluid it takes to keep the urine pink to yellow or clear in color. Drinking enough water and fluids will help to ease any discomfort after your procedure. ? If you are having problems that seem out of the ordinary, please call. ? If unable to contact your physician and you feel it is an emergency, go to the nearest emergency room or call 911 ? Diet ? you may resume your normal diet. ? Activity ? you may resume your normal activities ? Call if you have a fever over 100 degrees.[facility] 12-14-2023 Hospital Discharge instructions Patient Education 12/14/2023 14:02:22 Cystoscopy Cystoscopy [...] including vitamins, herbs, eye drops, creams, and zgma-itm-epzysao medicines. Any problems you or family members [...] provider tells you to take them. Taking jwmy-gpf-wwvtxvo medicines, vitamins, herbs, and supplements. Tests You [...] Follow these instructions at home: Medicines Take wbly-yhj-vspnopu and prescription medicines only as told by your health care provider. If you were prescribed an antibiotic medicine, take it as told by your health care provider. Do notstop taking the antibiotic even if you start [...] blood in your urine increases, call your healthcare provider. Follow instructions from your health care provider about eating or drinking restrictions. If a tissue sample was removed for testing (biopsy) during your procedure, it is up to you to get your test results. Ask your health care provider, or the department that is doing the test, when yourresults will be ready. Drink enough fluid to [...] blood in your urine increases, call your healthcare provider. If you were prescribed an antibiotic medicine, take it as told by your health care provider. Do notstop taking the antibiotic even if you start to feel better. This information is not intended to replace advice given to you by your health care provider. Make sure you discuss any questions you have with your health care provider. Document Revised: 02/11/2022 Document Reviewed: 01/10/2021 [employer] Patient Education 2022 [employer]. 12/14/2023 13:54:20 Urinary Tract Infection, Adult Urinary Tract Infection, Adult A urinary tract infection (UTI) is an infection of any part of the urinary tract. The urinary tractincludes the kidneys, ureters, bladder, and urethra. These organs make, store, and get rid of urinein the body. An upper UTI affects the [...] Treatment for this condition includes: Antibiotic medicine. Eceo-cwn-eiiicrc medicines to treat discomfort. Drinking enough water to stay hydrated. If you have frequent infections or have other conditions such as a kidney stone, you may need to see a health care provider who specializes in the urinary tract (urologist). In rare cases, urinary tract infections can cause sepsis. Sepsis is a life- threatening condition that occurs when the body responds to an infection. Sepsis is treated in the hospital with IV antibiotics, fluids, and other medicines. Follow these instructions at home: Medicines Take txeq-cge-ftkzqhq and prescription medicines only as told by your health care provider. If you were prescribed an antibiotic medicine, take it as told by your health care provider. Do notstop using the antibiotic even if you start [...] told by your health care provider. Do notstop using the antibiotic even if you start to feel better. Keep all follow-up visits. This is important. This information is not intended to replace advice given to you by your health care provider. Make sure you discuss any questions you have with your health care provider. Document Revised: 01/10/2021 Document Reviewed: 01/10/2021 [employer] Patient Education 2022 [employer]. Follow Up Care 09/21/2023 12:54:29 With:JULIA MORENO PA-C, URL Address: [place] [address] When: Unknown [facility] 07-02-2024 NoteUrology Office/Clinic Note Chief Complaint Dr. Kendrick referral HPI [...] yes avoids baths/hot tubs yes avoids scented [employer] products yes urinates after sexual activity n/a [...] With When Contact Information JULIA MORENO PA-C, URL [address] [place] [address] Additional Instructions: schedule cysto with possible UD, KUB Patient Education Cystoscopy Urinary Tract Infection, Adult Documentation recorded by the scribe Shayla Lane accurately reflects the services(s) I performedand decisions made by me. Authenticated by Julia Moreno PA-C on 12/14/2023 14:20:27. IShayla, personally scribed for ANDREA Bean on 12/14/2023 14:06:33. . Problem List/Past Medical History Ongoing Hypertension Hypothyroid Urge urinary incontinence Historical No qualifying data Procedure/Surgical History Ce (more content not included)...[facility]: Result Comment: Electronically Signed By: JULIA MORENO PA-C\.br\Date and Time Signed: 12/13/2413:22 EDT\.br\Electronically Co-Signed By: Shayla Lane\.br\Date and Time Co-Signed: 12/14/23 14:08 [id number] NotePatient Education Obstetrics and Gynecology Urinary Tract Infection, Adult A urinary tract infection (UTI) is an infection of any part of the urinary tract. The urinary tractincludes the kidneys, ureters, bladder, and urethra. These organs make, store, and get rid of urinein the body. An upper UTI affects the [...] this condition includes: ? Antibiotic medicine. ? Butj-vyq-tsrizxg medicines to treat discomfort. ? Drinking enough water to stay hydrated. If you have frequent infections or have other conditions such as a kidney stone, you may need to see a health care provider who specializes in the urinary tract (urologist). In rare cases, urinary tract infections can cause sepsis. Sepsis is a life- threatening condition that occurs when the body responds to an infection. Sepsis is treated in the hospital with IV antibiotics, fluids, and other medicines. Follow these instructions at home: Medicines ? Take vtaq-abb-magrwdr and prescription medicines only as told by [...] provider. Document Revised: 01/10 (more content not included)...[facility] note No data available for this section [facility] evaluation + Plan note Future Appointments Appointment Date:03/08/2024 08:00:00 AM Scheduled Provider:Audrey Booker MD Location:[facility] Appointment Type:URO Office Visit Diagnostic Tests Pending * Urine Culture 01/27/24 [facility] evaluation + Plan note Future Appointments Appointment Date:03/08/2024 08:00:00 AM Scheduled Provider:Audrey Booker MD Location:[facility] Appointment Type:URO Office Visit [facility] evaluation + Plan note Future Appointments Appointment Date:05/31/2024 08:45:00 AM Scheduled Provider:Audrey Booker MD Location:[facility] Appointment Type:URO Office Visit Diagnostic Tests Pending * Urine Culture 03/08/24 [facility] evaluation + Plan note Future Appointments Appointment Date:05/31/2024 08:45:00 AM Scheduled Provider:Audrey Booker MD Location:[facility] Appointment Type:URO Office Visit [facility] evaluation + Plan note Future Appointments Appointment Date:05/31/2024 08:45:00 AM Scheduled Provider:Audrey Booker MD Location:[facility] Appointment Type:URO Office Visit Diagnostic Tests Pending * Urine Culture 05/26/24 [facility] evaluation + Plan note Future Appointments Appointment Date:08/30/2024 08:00:00 AM Scheduled Provider:Audrey Booker MD Location:[facility] Appointment Type:URO Office Visit [facility] evaluation + Plan note Future Appointments Appointment Date:08/30/2024 08:00:00 AM Scheduled Provider:Audrey Booker MD Location:[facility] Appointment Type:URO Office Visit Diagnostic Tests Pending * Urine Culture 07/03/24 [facility] evaluation + Plan note Future Appointments Appointment Date:10/25/2024 08:45:00 AM Scheduled Provider:Audrey Booker MD Location:[facility] Appointment Type:URO Office Visit [facility] Evaluation + Plan note Future Appointments Appointment Date:10/25/2024 08:45:00 AM Scheduled Provider:Audrey Booker MD Location:[facility] Appointment Type:URO Office Visit Diagnostic Tests Pending * Urine Culture 08/09/24 [facility] Evaluation noteNo assessment information available [facility] Work Phone: Hospital Discharge instructions No data available for this section [facility] Progress note No data available for this section [facility] Summary Purpose Family History No Family History Records FoundNo Family History Records Found No data available for this section No data available for this section No Family History Records Found No data available for this section No data available for this section No Family History Records Found No data available for this section No data available for this section No Family History Records FoundNo Family History Records Found No data available for this section No data available for this section No Family History Records Found No data available for this section No Family History Records Found No data available for this section No data available for this section No Family History Records FoundNo Family History Records Found No data available for this section No data available for this section No Family History Records Found No data available for this section No Family History Records FoundNo Family History [...] section No data available for this section No data available for this section No data available for this section No data available for this section No data available for this section No data available for this section No data available for this section No data available for this section No data available for this section No data available for this section No data available for this section No data available for this section No data available for this section No data available for this section INFORMATION SOURCE (unrecogn ized section and content) DATE CREATED AUTHOR 11/20/2022 [facility] DATE CREATED AUTHOR AUTHOR'S ORGANIZ ATION 03/20/2023 [facility] DATE CREATED AUTHOR AUTHOR'S ORGANIZ ATION 01/07/2024 [facility] DATE CREATED AUTHOR AUTHOR'S ORGANIZ ATION 01/31/2024 [facility] DATE CREATED AUTHOR AUTHOR'S ORGANIZ ATION 03/12/2024 [facility] DATE CREATED AUTHOR AUTHOR'S ORGANIZ ATION 05/29/2024 [facility] DATE CREATED AUTHOR AUTHOR'S ORGANIZ ATION 05/30/2024 [facility] DATE CREATED AUTHOR AUTHOR'S ORGANIZ ATION 06/03/2024 [facility] DATE CREATED AUTHOR AUTHOR'S ORGANIZ ATION 07/07/2024 [facility] DATE CREATED AUTHOR AUTHOR'S ORGANIZ ATION 08/04/2024 [facility] DATE CREATED AUTHOR AUTHOR'S ORGANIZ ATION 08/10/2024 [facility] DATE CREATED AUTHOR AUTHOR'S ORGANIZ ATION 08/11/2024 [facility] DATE CREATED AUTHOR AUTHOR'S ORGANIZ ATION 08/13/2024 [facility] FOR RECORDS PERTAINING TO PATIENTS WHO ARE [...] BE BASED ON THE PRIMARY CLINICAL RECORDS. [facility]. provides no warranty or guarantee of the accuracy or completeness of information in this document.
== END 2024-08-15 13:59 | disposition home or self-care (01) ==
LOC: PST 13:58
PROVIDERS: PCP Family Medicine; Visit Provider Surgery
DX: Z01.818 Encounter for other preprocedural examination (principal); Z86.0101 Personal history of adenomatous and serrated colon polyps; Z80.0 Family history of malignant neoplasm of digestive organs

== ENCOUNTER 2024-08-30 06:56 | Day surgery (SDC) | payer MEDICARE, SELFPAY ==
--- NOTE | 2024-08-30 | OP_ITS ---
OPERATION DATE: 08/30/2024 PREOPERATIVE DIAGNOSIS: Personal history of colon polyps. POSTOPERATIVE DIAGNOSIS: Normal colonoscopy to cecum. PROCEDURE: Colonoscopy to cecum. SURGEON: Gulshan Rivera M.D. ANESTHESIA: Monitored anesthesia care. ESTIMATED BLOOD LOSS: Zero. INDICATIONS AND CONSENT: Patient is a 68-year-old female with history of colon polyps, with a family history of colon cancer, presents for surveillance colonoscopy. Indications, risks, benefits, alternatives of proceeding with colonoscopy were explained extensively to the patient, including the risks of bleeding, colon perforation or anesthetic complications. All of her questions were answered. Informed consent was obtained. PROCEDURE: Patient brought to the operating room, placed in the left lateral decubitus position. Monitored anesthesia care was provided. Rectal exam was performed which showed no masses or blood. The scope was inserted into the anal canal. Under direct visualization was advanced. With the aid of abdominal compression, it was advanced to the cecum where cecal markings were clearly identified. Upon withdrawal of the scope, mucosal surfaces were carefully examined. There were no mass lesions or polyps. No inflammatory changes or ulcerations. No significant diverticulosis. The scope was retroflexed in the anal canal. There was no significant hemorrhoidal disease. The scope was then withdrawn. Patient tolerated procedure well, was sent to recovery room in good condition. Follow up colonoscopy should be in 10 years. CC: Michael Kendrick M.D. [facility]
--- OUTSIDE RECORDS SUMMARY | 2024-08-30 06:59 | XMS_ITS | CCD ---
Author Organization [facility] Care Team Providers Care Administrative Supervisor Name Role Phone MD Christophe Louis Attending [...] Referring Unavailable Azule Audrey MIvon Admitting Unavailable Florinda Chapa Attending Unavailable Florinda Chapa Admitting Unavailable [...] Eruption of skin (disorder) [facility] Medications Current Medications Medication Drug Class(es) Dates Sig (Normalized) Sig (Original) Albuterol (Eqv-ProAir HFA) 90 mcg/inh inhalation aerosol (3 sources) Start: 02-17-2025 Albuterol (Eqv-ProAir HFA) 90 mcg/inh inhalation aerosol 2 inh, Inhalation, q4hr Shortness of breath or wheezing, Refill(s) 0 Start Date: 07/31/24 Status: Ordered cephalexin 500 mg oral capsule (2 sources) Cephalosporin Antibacterial Start: 07-03-2024 End: 07-13-2024 take 1 capsule by mouth twice daily cephalexin 500 mg Cap 500 mg = 1 cap(s), Oral, BID, X 10 day(s), # 20 cap(s), Refills(s) 0, Pharmacy: [facility]/pharmacy #[id number], 165, cm, 05/31/24 9:21:00 EST, Height/Length [...] day(s), # 6 tab(s), Refills(s) 0, Pharmacy: [facility]/pharmacy #[id number], 165, cm, 01/03/24 10:27:00 EDT, Height/Length [...] day(s), # 60 tab(s), Refills(s) 3, Pharmacy: [facility]/pharmacy #[id number], 165, cm, 05/31/24 9:21:00 EST, Height/Length [...] day(s), # 10 cap(s), Refills(s) 0, Pharmacy: [facility]/pharmacy #[id number], 165, cm, 03/08/24 8:20:00 EDT, Height/Length [...] Nightly, # 30 tab(s), Refills(s) 11, [id number] 165, cm, 03/08/24 8:20:00 EDT, [...] 3 weeks then 3x per week thereafter, [facility]/pharmacy #[id number], 165, cm, 12/14/23 13:44:00 EDT, Height/Length [...] Locations R1: This test was performed at: [facility], [address] [place] [address], [facility] , , [facility] Comment on above: Performed By: #### 2 [id number] #### [facility] [address] [place] [address] Ambulatory Visit Summaryon 0 08-09-2024 Ambulatory Visit [...] Wednesday 8:00 AM EDT With: Jhony JONES, Audery Amato Where: [place] [address]- Medications What How Much When Instructions Unchanged [...] you for choosing us for your care. [facility] Reminderson 08-02-2024 Reminders Reminders -- From: Sejal Harp To: EU - Recalls Lue; Sent: 05/31/2024 11:31:54 EST Show up: 08/01/2024 11:30:00 EST Subject: KORI Due Date/Time: 08/23/2024 11:30:00 EDT Reminder Message Pt needs to complete KORI at [facility] prior to f/u in 3 mos (appt on 08/30/24). Please fax order, notes, and demo. KORI done 06/19/24. Follow up on 08/30 [facility] C Urineon 07-05-2024 Bacteria identified Cx Nom (U) Microbiology PROCEDURE: Urine Culture [R1] SOURCE: U CleanCatch BODY SITE: COLLECTED DATE/TIME: 07/03/2024 14:19 EST RECEIVED DATE/TIME: 07/03/2024 18:38 EST START DATE/TIME: 07/03/2024 18:38 EST FREE TEXT SOURCE: JULIA MORENO PA-C, PA-C, UJLIA Huynh FINAL REPORTS Final Report [] Verified [...] Locations R1: This test was performed at: [facility], [address] [place] [address], [address]- , , [facility] Comment on above: Performed By: #### 2 [id number] #### [facility] [address] [place] [address] Ambulatory Visit Summaryon 1 08-01-2023 Ambulatory Visit [...] Audrey Booker MD Where: [facility] [address] [address] You Need to Schedule the Following Appointments Follow Up with Jhony JONES, Audrey Amato, URL, URO When: Comments: 3 mos w/ KORI Where: [address] [place] [phone] Medications What How Much When Instructions New methenamine (methenamine hippurate 1 g oral tablet) 1 Tablets By Mouth 2 times a day Duration: 30 Days Refills: 3 Pickup at [facility]/pharmacy #[id number] Unchanged estradiol topical (Estrace 0.1 mg/ g [...] physician if questions or concerns Pharmacy Information [facility]/pharmacy #[id number]: [address] [place], [place] [phone] Allergies sulfa drugs (Rash) Problems Ongoing - [...] Pain o (more content not included)... Normal [facility] Urology Office/Clinic Noteon 05-31-2024 Urology [...] intake and stool softeners. -Schedule KORI @ [facility]. F/u in 3 mos to review. [...] Jhony JONES, Audrey Amato, URL, URO [address] [place] [phone] Additional Instructions: 3 mos w/ KORI Patient Education Atrophic Vaginitis I, Sejal Harp, personally scribed for Dr. Booker on 05/31/2024 10:04:51. (more content not included)... Normal [facility] Comment on above: Result Comment: [...] Locations R1: This test was performed at: [facility], [address] [place] [address], [address]- , [place], Normal [facility] Comment on above: Performed By: #### 2 [id number] #### [facility] [address] [place] [address] C Urineon 03-11-2024 Bacteria identified Cx Nom [...] Locations R1: This test was performed at: [facility], [address] [place] [address], [address]- , , [facility] Comment on above: Performed By: #### 2 [id number] #### [facility] [address] [place] [address] Ambulatory Visit Summaryon 0 03-08-2024 Ambulatory Visit [...] Audrey Booker MD Where: [facility] [address] You Need to Schedule the Following Appointments Follow Up with Jhony JONES, Audrey Amato, URL, URO When: Comments: 3 mos Where: Medications What How Much When Instructions New trospium (trospium 20 mg oral tablet) 1 Tablets By Mouth Once a day (in the evening) Refills: 11 Nightly Pickup at [facility]/pharmacy #[id number] Unchanged estradiol topical (Estrace 0.1 mg/ [...] physician if questions or concerns Pharmacy Information [facility]/pharmacy #[id number]: [address], [place] [phone] What How Much When Comments Stop Taking [...] tir (more content not included)... Normal [facility] Urology Office/Clinic Noteon 03-08-2024 Urology [...] Urnls Dip Stick Auto w/o Microscopy POC 84478 2. Urge urinary incontinence (N39.41: Urge incontinence) [...] Urnls Dip Stick Auto w/o Microscopy POC 36660 3. 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 urethral stricture, not elsewhere classified, female) Improvement in weak stream Not helping with UTIs, see #1 Discussed need for estrace cream, risks/benefits -Cont sx monitoring, pt would repeat in the future Orders: trospium, 20 mg = 1 tab(s), Oral, qPM, Nightly, # 30 tab(s), Refills(s) 11, Pharmacy: [facility]/pharmacy #[id number], 165, cm, 03/08/24 8:20:00 EDT, Height/Length Dosing, 95.6, kg, 03/08/24 8:20:00 EDT, Weight Dosing Follow-up With When Contact Information Jhony JONES, Audrey Amato, URL, URO Additional Instructions: 3 mos Patient Education Urinary Tract Infection, Adult Overactive Bladder, Adult I, Belen Wall, personally scribed for Dr. Booker on 03/08/2024 08:46:41. . Documentation recorded by the scribBelen uhynh , accurately reflects the services(s) I performed and decisions made by me. Authenticated by Dr. Booker on 03/08/2024 08:58:56. Problem List/Past Medical History Ongoing Hypertension Hypothyroid SUSAN (obstructive sleep apnea) Recurrent UTI Urge urinary incontinence Historical No qualifying data Procedure/Surgical History section, Tonsillectomy. Medications Estr (more content not included)... Normal [facility] Comment on above: Result Comment: [...] BENEDICTO=mcg/m;(mg/L), S*=Predicted susceptible interp, R*=Predicted resistant interp [facility] #2 Antibiotic BENEDICTO Dilutn BENEDICTO Interp BENEDICTO [...] Locations R1: This test was performed at: [facility], [address] [place] [address], [address]- , [place], Normal [facility] Comment on above: Performed By: #### 2 [id number] #### [facility] [address] [place] [address] UA with Cult Rflxon 01-04-20 24 Bacteria Auto Ql (U) 1+ /HPF Abnormal Trace Fish [facility] Comment on above: Performed By: #### 4 [id number] #### [facility] [address] [place] [address] Bilirubin Ql (U) Negative Normal Negative [facility] Comment on above: Performed By: #### 4 [id number] #### [facility] [address] [place] [address] Clarity (U) Ex.Turbid Abnormal Clear [facility] Comment on above: Performed By: #### 4 [id number] #### [facility] [address] [place] [address] Color (U) Yellow Normal Yellow [facility] Comment on above: Result Comment: Micr oscopic readings are only performed on those samples that meet specific criteria set forth by [facility]. Performed By: #### 4 [id number] #### [facility] [address] [place] [address] Epithelial cells.squamous Auto (Urine sed) [#/Area] 3-4 Invalid Interpretation Code [facility] Comment on above: Performed By: #### 4 [id number] #### [facility] [address] [place] [address] Glucose Ql (U) Negative Normal Negative [facility] Comment on above: Performed By: #### 4 [id number] #### [facility] [address] [place] [address] Hemoglobin Auto test strip (U) [Mass/Vol] 1+ mg/dL Abnormal Negative [facility] Comment on above: Performed By: #### 4 [id number] #### [facility] [address] [place] [address] Ketones Auto test strip Ql (U) Negative Normal Negative [facility] Comment on above: Performed By: #### 4 [id number] #### [facility] [address] [place] [address] Leukocyte clumps Auto (Urine sed) [#/Area] 21-30 Abnormal [facility] Comment on above: Performed By: #### 4 [id number] #### [facility] [address] [place] [address] Leukocyte esterase Auto test strip Ql (U) 500 Ata/uL Abnormal Negative [facility] Comment on above: Performed By: #### 4 [id number] #### [facility] [address] [place] [address] Mucus Auto Ql (U) Trace Normal Negative [facility] Comment on above: Performed By: #### 4 [id number] #### [facility] [address] [place] [address] Nitrite Auto test strip Ql (U) 1+ mg/dL Abnormal Negative [facility] Comment on above: Performed By: #### 4 [id number] #### [facility] [address] [place] [address] pH (U) 6.0 [pH] Invalid Interpretation Code 5.0-9.0 [facility] Comment on above: Performed By: #### 4 [id number] #### [facility] [address] [place] [address] Protein Ql (U) Trace Abnormal Negative [facility] Comment on above: Performed By: #### 4 [id number] #### [facility] [address] [place] [address] RBC Ql (U) 4-20 Abnormal 0-3 [facility] Comment on above: Performed By: #### 4 [id number] #### [facility] [address] [place] [address] Specific gravity (U) [Rel density] 1.009 Invalid Interpretation Code 1.005-1.030 [facility] Comment on above: Performed By: #### 4 [id number] #### [facility] [address] [place] [address] Urobilinogen (U) [Mass/Vol] Negative Normal Negative [facility] Comment on above: Performed By: #### 4 [id number] #### [facility] [address] [place] [address] WBC Auto (Urine sed) [#/Area] >75 Abnormal 0-5 [facility] Comment on above: Performed By: #### 4 [id number] #### [facility] [address] [place] [address] Inpatient Patient Summaryon 01-03-2024 Inpatient Patient Summary Inpatient Patient Summary [address] [address] Clinical Summary Person Information Name: LAINE LOPEZ Age: 68 Years : 1955 Sex: Female PCP: Sinan Kendrick MD Marital Status: Unknown Race: White Ethnicity: Non- or Language: Macedonian Visit Id: Visit Reason: RECURRENT UTI Speciality: Acuity: Enc Type: Outpatient Med Service: Surgery Arrival: 01/03/2024 10:00:24 Discharge: Dispo Type: Address: [address] [place] [phone] Provider Notes: Diagnosis: Acute UTI; Urge urinary [...] Follow up: With: Address: When: Audrey Booker [address] [place], [place] [phone] Business (1) Comments: Office to schedule follow up in 1-2 months Patient Education Information: EU - Cystoscopy Discharge Instructions (CUSTOM) [facility] Main OR Intraoperative Recor don 01-03-2024 Main OR Intraoperative Record Main OR Intraoperative Record IntraOp Document Type FTURO Summary Primary Physician: Audrey Booker MD Finalized Date/Time: 01/03/24 11:03:38 Pt. Name: LAINE LOPEZ/Sex: 1955 Female Med Rec #: [id number] Physician: Audrey Booker MD Financial #: [id number] Pt. Type: O Room/Bed: / Admit/Disch: 01/03/24 [...] Kimberly A Role Performed Surgeon - Primary Advanced Clinical Specialist - Primary Scrub - Primary Time In [...] Gonzalez 01/03/24 11:03 Cristine Gonzalez 01/03/24 11:03 [facility] Main OR Preoperative Recordo n 01-03-2024 Main OR Preoperative Record Main OR Preoperative Record Holding Area Document Type FTURO Summary Primary Physician: Audrey Booker MD Finalized Date/Time: 01/03/24 10:45:26 Pt. Name: LAINE LOPEZ /Sex: 1955 Female Med Rec #: [id number] Physician: Audrey Booker MD Financial #: [id number] Pt. Type: O Room/Bed: / Admit/Disch: 01/03/24 [...] Complaints of Pain: No Skin Integrity Intact, [place], Warm, & Dry Vitals - EU Blood [...] 01/03/24 10:27 Cristine Gonzalez 01/03/24 10:45 Normal [facility] Operative Reporton 4 Operative Report Operative Report Patient: LAINE LOPEZ Age: 68 years Sex: Female : 1955 Associated Diagnoses: None Author: Audrey Booker MD Procedure Operative Information Details: Date/ Time: 01/03/2024 11:07:00. Pre-Op Dx: Urge urinary incontinence (OUU46-IX N39.41, Discharge, Medical), Recurrent UTI (ZMQ47-OC N39.0, Working, Medical). Post-Op Dx: Urge urinary incontinence (KOC60-RL N39.41, Discharge, Medical), Urethral meatal stenosis (FHK38-XX N35.919, Working, Medical), Recurrent UTI (ISP79-LN N39.0, Working, Medical). Anesthesia Type: Local. Procedure: [...] urine. The Urethra was dilated to: 30 Kazakh w/ sounds. Devices Implanted: None. Removal: Cystoscope [...] that time pending UD results. . Normal [facility] Comment on above: Result Comment: Elec tronically Signed By: Audrey Booker MD\.br\Date and Time Signed: 01/03/24 11:11 EDT Outpatient Surgery Discharge Instructionon 01-03-2024 Outpatient Surgery Discharge Instruction Outpatient Surgery Discharge Instruction [address] [address] Patient Discharge Instructions PERSON INFORMATION [...] Follow up: With: Address: When: Audrey Booker [address] [place], [place] [phone] Business (1) Comments: Office to schedule follow [...] Date You may receive a survey from [employer] asking you to rate your care experience. Your feedback is important and will help us understand what we do well and how we can improve the quality of care we provide to you, your loved ones and our community. It?s an honor to serve you. Thank you for choosing [facility] Normal [facility] UA with Cult Rflxon 01-03-20 Type of Urine collection method Clean Catch Normal [facility] Comment on above: Performed By: #### 4 [id number] #### [facility] [address] [place] [address] URINALYSISOrdered By: Cristine oGnzalez on 01-03-2024 UA Spec Desc Clean Catch (01/03/24 4:05 PM) Normal [facility] UA Auto SS Ambulatory Visit Summaryon 0 [...] JULIA MORENO PA-C, URL When: Where: [address] [place] [address] Medications What How Much When Instructions Unchanged [...] including vitamins, herbs, eye drops, creams, and bcvp-vux-kqlqzrk medicines. ? Any problems you or family [...] tells you to take them. ? Taking lvxs-woq-fxjdotf medicines, vitamins, herbs, and supplements. Tests You [...] These steps (more content not included)... Normal [facility] CBC AUTO DIFFon 05-31-2023 BASO # 0.0 103/ul Normal 0.0-0.1 [facility] Comment on above: Performed By: #### Lizzette GARCIA VITAD #### [facility] [address] [place] [address] Dr. Dario Umaña Basophils/100 WBC (Bld) 0.5 % Normal 0.2-2.0 [facility] Comment on above: Performed By: #### Lizzette GARCIA VITAD #### [facility] [address] [place] [address] Dr. Dario Umaña EO # 0.4 103/ul Normal 0.0-0.7 [facility] Comment on above: Performed By: #### Lizzette GARCIA VITAD #### [facility] [address] [place] [address] Dr. Dario Umaña Eosinophils/100 WBC (Bld) 5.3 % Normal 0.9-7.0 [facility] Comment on above: Performed By: #### Lizzette GARCIA VITAD #### [facility] [address] [place] [address] Dr. Dario Umaña Erythrocyte distribution width (RBC) [Ratio] 12.3 % Normal 11.0-15.0 [facility] Comment on above: Performed By: #### Lizzette GARCIA VITAD #### [facility] [address] [place] [address] Dr. Dario Umaña Hematocrit (Bld) [Volume fraction] 40.1 % Normal 36.0-48.0 [facility] Comment on above: Performed By: #### Lizzette GARCIA VITAD #### [facility] [address] [place] [address] Dr. Dario Umaña Hemoglobin (Bld) [Mass/Vol] 13.4 g/dL Normal 12.0-16.0 [facility] Comment on above: Performed By: #### Lizzette GARCIA VITAD #### [facility] [address] [place] [address] Dr. Dario Umaña IG # 0.02 10e3/ul Normal 0.00-0.03 [facility] Comment on above: Performed By: #### Lizzette GARCIA VITAD #### [facility] [address] [address] [address] Dario Umaña IG % 0.3 % Normal 0.0-0.5 [facility] Comment on above: Performed By: #### I RADHA, VITAD #### [facility] [address] [place] [address] Dr. Dario Umaña LYMPH # 2.6 103/ul Normal 1.2-3.8 [facility] Comment on above: Performed By: #### I RADHA, VITAD #### [facility] [address] [place] [address] Dr. Dario Umaña Lymphocytes/100 WBC (Bld) 38.6 % Normal 20.5-60.0 [facility] Comment on above: Performed By: #### I RADHA, VITAD #### [facility] [address] [place] [address] Dr. Dario Umaña MANUAL DIFF REQ NO Normal [facility] Comment on above: Performed By: #### I RADHA, VITAD #### [facility] [address] [place] [address] Dr. Dario Umaña MCH (RBC) [Entitic mass] 29.3 pg Normal 26.7-34.0 [facility] Comment on above: Performed By: #### I RADHA, VITAD #### [facility] [address] [place] [address] Dr. Dario Umaña MCHC (RBC) [Mass/Vol] 33.4 g/dL Normal 29.9-35.2 [facility] Comment on above: Performed By: #### I RADHA, VITAD #### [facility] [address] [place] [address] Dr. Dario Umaña MCV (RBC) [Entitic vol] 87.7 fL Normal 81.0-99.0 [facility] Comment on above: Performed By: #### I RADHA, VITAD #### [facility] [address] [place] [address] Dr. Dario Umaña MONO # 0.5 103/ul Normal 0.3-0.8 [facility] Comment on above: Performed By: #### I RADHA, VITAD #### [facility] [address] [place] [address] Dr. Dario Umaña Monocytes/100 WBC (Bld) 7.5 % Normal 1.7-12.0 [facility] Comment on above: Performed By: #### I RADHA, VITAD #### [facility] [address] [place] [address] Dr. Dario Umaña NEUT # 3.2 103/ul Normal 1.4-6.5 [facility] Comment on above: Performed By: #### I RADHA, VITAD #### [facility] [address] [place] [address] Dr. Dario Umaña Neutrophils/100 WBC (Bld) 47.8 % Normal 43.0-75.0 [facility] Comment on above: Performed By: #### I RADHA, VITAD #### [facility] [address] [place] [address] Dr. Dario Umaña Platelet mean volume (Bld) [Entitic vol] 8.7 fL Critically low 9.5-13.5 [facility] Comment on above: Performed By: #### I RADHA, VITAD #### [facility] [address] [place] [address] Dr. Dario Umaña PLT 200 103/ul Normal 150-450 [facility] Comment on above: Performed By: #### I RADHA, VITAD #### [facility] [address] [place] [address] Dr. Dario Umaña RBC 4.57 106/ul Normal 4.20-5.40 [facility] Comment on above: Performed By: #### I RADHA, VITAD #### [facility] [address] [place] [address] Dr. Dario Umaña WBC 6.6 103/ul Normal 4.0-11.0 [facility] Comment on above: Performed By: #### I RADHA, VITAD #### [facility] [address] [place] [address]maña [address] ABD/PELV W CONon [...] ASYA PLUMMER Date: 2022-11-11 10:01 Normal [facility] FREE THYROXINE INDEX T7on FTI 3.30 Normal 1.30-4.50 [facility] Comment on above: Performed By: #### C MP, TSH, LIPID, T7 #### [facility] [address] [address] [address] Dario Umaña T3U 33.0 % Normal 30.0-39.0 [facility] Comment on above: Performed By: #### C MP, TSH, LIPID, T7 #### [facility] [address] [place], [place] [address] Dr. Dario Umaña T4 [Mass/Vol] 10.00 ug/dL Normal 4.80-13.90 [facility] Comment on above: Performed By: #### C MP, TSH, LIPID, T7 #### [facility] [address] [place], [place] [address] Dr. Dario Umaña GLYCOHEMOGLOBIN A1Con 2022 ADA RECOMMENDATION SEE BELOW Normal [facility] Comment on above: Result Comment: ADA RECOMMENDED LIMIT 4.0 - 6.0 ADA THERAPEUTIC TARGET < 7.0 ACTION SUGGESTED > 7.0 Performed By: #### A 1C #### [facility] [address] [address] [address] Dario Umaña Glucose [Mass/Vol] 123 mg/dL Normal [facility] Comment on above: Performed By: #### A 1C #### [facility] [address] [address] [address] Dario Umaña HbA1c (Bld) [Mass fraction] 5.9 % Normal 4.5-6.2 [facility] Comment on above: Performed By: #### A 1C #### [facility] [address] [place] [address] Dr. Dario Umaña IRONon 11-11-2022 Iron [Mass/Vol] 92.0 ug/dL Normal 50.0-170.0 [facility] Comment on above: Performed By: #### I VALENTINO GARCIA #### [facility] [address] [place] [address] Dr. Dario Umaña LIPID PROFILEon 11-11-2022 CHOL-HDL RATIO NORM SEE BELOW Normal [facility] Comment on above: Result Comment: 3.3 - 4.4 LOW RISK 4.4 - 7.1 AVERAGE RISK 7.1 - 11.0 MODERATE RISK >11.0 HIGH RISK Performed By: #### C MP, TSH, LIPID, T7 #### [facility] [address] [address] [address] Dario Umaña Cholesterol [Mass/Vol] 174 mg/dL Normal <=200 [facility] Comment on above: Performed By: #### C MP, TSH, LIPID, T7 #### [facility] [address] [address] [address] Dario Umaña Cholesterol in HDL [Mass/Vol] 55 mg/dL Normal 40-60 [facility] Comment on above: Performed By: #### C MP, TSH, LIPID, T7 #### [facility] [address] [address] [address] Dario Umaña Cholesterol in LDL [Mass/Vol] 91.2 mg/dL Normal [facility] Comment on above: Performed By: #### C MP, TSH, LIPID, T7 #### [facility] [address] [place] [address] Dr. Dario Umaña Cholesterol.total/Chol esterol in HDL [Mass ratio] 3.2 {ratio} Normal [facility] Comment on above: Performed By: #### C MP, TSH, LIPID, T7 #### [facility] [address] [place] [address] Dr. Dario Umaña HDL NORMAL > or = 60 mg/dl - LOW CARDIOVASCULAR RISK <40 mg/dl - HIGH CARDIOVASCULAR RISK Normal [facility] Comment on above: Performed By: #### C MP, TSH, LIPID, T7 #### [facility] [address] [place] [address] Dr. Dario Umaña LDL CALC NORMAL SEE BELOW Normal [facility] Comment on above: Result Comment: <100 mg/dl OPTIMAL 100 - 129 mg/dl NEAR OR ABOVE OPTIMAL 130 - 159 mg/dl BORDERLINE HIGH 160 - 189 mg/dl HIGH >190 mg/dl VERY HIGH Performed By: #### C MP, TSH, LIPID, T7 #### [facility] [address] [place] [address] Dr. Dario Umaña Triglyceride [Mass/Vol] 139 mg/dL Normal <=150 [facility] Comment on above: Performed By: #### C MP, TSH, LIPID, T7 #### [facility] [address] [place] [address] Dr. Dario Umaña VLDL CALC 27.8 mg/dL Normal [facility] Comment on above: Performed By: #### C MP, TSH, LIPID, T7 #### [facility] [address] [place] [address] Dr. Dario Umaña MG MAMM SCREEN 3D LUBNA CADon 11-11-2022 MG MAMM SCREEN 3D LUBNA CAD Patient: LAINE LOPEZ Exam Date: 11/11/2022 : 1955 Gender:F Ordering : DR SINAN KENDRICK . Admission #: [id number] Family : Order #: [id number] CLICK HERE TO VIEW EXAM RADIOLOGY REPORT [...] No Treatments None Family Cancers None LOCATION: [facility] BREAST COMPOSITION: Almost entirely fatty. FINDINGS: DIAGNOSTIC [...] Baldwin M.D. on 11/11/2022 at 16:48 Normal [facility] PROF 14(COMP METB)on 023 Albumin [Mass/Vol] 3.9 g/dL Normal 3.4-5.0 [facility] Comment on above: Performed By: #### C MP, TSH, LIPID, T7 #### [facility] [address] [address] [address] Dario Umaña Albumin/Globulin [Mass ratio] 1.1 {ratio} Normal [facility] Comment on above: Performed By: #### C MP, TSH, LIPID, T7 #### [facility] [address] [place], [place] [address] Dr. Dario Umaña ALP [Catalytic activity/Vol] 76 U/L Normal 46-116 [facility] Comment on above: Performed By: #### C MP, TSH, LIPID, T7 #### [facility] [address] [place], [place] [address] Dr. Dario Umaña ALT [Catalytic activity/Vol] 38 U/L Normal 14-59 [facility] Comment on above: Performed By: #### C MP, TSH, LIPID, T7 #### [facility] [address] [address] [address] Dario Umaña Anion gap [Moles/Vol] 15.8 mmol/L Normal [facility] Comment on above: Performed By: #### C MP, TSH, LIPID, T7 #### [facility] [address] [address] [address] Dario Umaña AST [Catalytic activity/Vol] 21 U/L Normal 15-37 [facility] Comment on above: Performed By: #### C MP, TSH, LIPID, T7 #### [facility] [address] [address] [address] Dario Umaña Bilirubin [Mass/Vol] 0.5 mg/dL Normal 0.2-1.0 [facility] Comment on above: Performed By: #### C MP, TSH, LIPID, T7 #### [facility] [address] [place] [address] Dr. Dario Umaña Calcium [Mass/Vol] 9.0 mg/dL Normal 8.5-10.1 [facility] Comment on above: Performed By: #### C MP, TSH, LIPID, T7 #### [facility] [address] [address] [address] Dario Umaña Chloride [Moles/Vol] 105 mmol/L Normal 98-107 [facility] Comment on above: Performed By: #### C MP, TSH, LIPID, T7 #### [facility] [address] [address] [address] Dario Umaña CO2 [Moles/Vol] 22.6 mmol/L Normal 21.0-32.0 [facility] Comment on above: Performed By: #### C MP, TSH, LIPID, T7 #### [facility] [address] [address] [address] Dario Umaña Creatinine [Mass/Vol] 0.89 mg/dL Normal 0.55-1.02 [facility] Comment on above: Performed By: #### C MP, TSH, LIPID, T7 #### [facility] [address] [address] [address] Dario Umaña EGFR-AF TAIWANESE >60 Normal >=60 [facility] Comment on above: Performed By: #### C MP, TSH, LIPID, T7 #### [facility] [address] [address] [address] Dario Umaña EGFR-NON AF TAIWANESE >60 Normal >=60 [facility] Comment on above: Performed By: #### C MP, TSH, LIPID, T7 #### [facility] [address] [address] [address] Dario Umaña Globulin (S) [Mass/Vol] 3.6 g/dL Normal [facility] Comment on above: Performed By: #### C MP, TSH, LIPID, T7 #### [facility] [address] [place] [address] Dr. Dario Umaña Glucose [Mass/Vol] 120 mg/dL Critically high 74-106 [facility] Comment on above: Performed By: #### C MP, TSH, LIPID, T7 #### [facility] [address] [place] [address] Dr. Dario Umaña Potassium [Moles/Vol] 4.4 mmol/L Normal 3.5-5.1 [facility] Comment on above: Performed By: #### C MP, TSH, LIPID, T7 #### [facility] [address] [address] [address] Dario Umaña Protein [Mass/Vol] 7.5 g/dL Normal 6.4-8.2 [facility] Comment on above: Performed By: #### C MP, TSH, LIPID, T7 #### [facility] [address] [address] [address] Dario Umaña Sodium [Moles/Vol] 139 mmol/L Normal 136-145 [facility] Comment on above: Performed By: #### C MP, TSH, LIPID, T7 #### [facility] [address] [address] [address] Dario Umaña Urea nitrogen [Mass/Vol] 16.0 mg/dL Normal 7.0-18.0 [facility] Comment on above: Performed By: #### C MP, TSH, LIPID, T7 #### [facility] [address] [place] [address] Dr. Dario Umaña Urea nitrogen/Creatinine [Mass ratio] 18.0 mg/mg Normal [facility] Comment on above: Performed By: #### C MP, TSH, LIPID, T7 #### [facility] [address] [place] [address] Dr. Dario Umaña TSHon 11-11-2022 TSH 3.151 uIU/mL Normal 0.358-3.740 [facility] Comment on above: Performed By: #### C MP, TSH, LIPID, T7 #### [facility] [address] [place] [address] Dr. Dario Umaña UA RANDOMon 11-11-2022 Bilirubin Ql (U) Negative Normal NEGATIVE [facility] Comment on above: Performed By: #### U A #### [facility] [address] [place] [address] Dr. Dario Umaña Clarity (U) CLEAR Normal CLEAR [facility] Comment on above: Performed By: #### U A #### [facility] [address] [place] [address] Dr. Dario Umaña Color (U) LT. YELLOW Normal YELLOW [facility] Comment on above: Performed By: #### U A #### [facility] [address] [place] [address] Dr. Dario Umaña Glucose Ql (U) Negative Normal NEGATIVE [facility] Comment on above: Performed By: #### U A #### [facility] [address] [place] [address] Dr. Dario Umaña Hemoglobin Ql (U) Negative Normal NEGATIVE [facility] Comment on above: Performed By: #### U A #### [facility] [address] [place] [address] Dr. Dario Umaña Ketones Ql (U) Negative Normal NEGATIVE [facility] Comment on above: Performed By: #### U A #### [facility] [address] [place] [address] Dr. Dario Umaña LEUKOCYTES MODERATE Abnormal NEGATIVE [facility] Comment on above: Performed By: #### U A #### [facility] [address] [place] [address] Dr. Dario Umaña Nitrite Ql (U) Positive Abnormal NEGATIVE [facility] Comment on above: Performed By: #### U A #### [facility] [address] [place] [address] Dr. Dario Umaña pH (U) 5.5 [pH] Normal 5-9 [facility] Comment on above: Performed By: #### U A #### [facility] [address] [place] [address] Dr. Dario Umaña SPEC GRAVITY 1.025 Normal 1.005-<=1.025 [facility] Comment on above: Performed By: #### U A #### [facility] [address] [place] [address] Dr. Dario Umaña UA PROTEIN Negative Normal NEGATIVE/ TRACE [facility] Comment on above: Performed By: #### U A #### [facility] [address] [place] [address] Dr. Dario Umaña Urobilinogen Qn (U) 0.2 {German'U}/dL Normal 0.2 - 1. 0 [facility] Comment on above: Performed By: #### U A #### [facility] [address] [place] [address] Dr. Dario Umaña VITAMIN D 25 OHon 11-11-2022 VIT D 25-OH 71.1 ng/mL Normal [facility] Comment on above: Performed By: #### I RADHA VITAD #### [facility] [address] [place] [address] Dr. Dario Umaña VIT D RANGES SEE BELOW Normal [facility] Comment on above: Result Comment: <20 ng/mL Vit D deficient 20 - <30 ng/mL Vit D insufficient 30 - 100 ng/mL Vit D sufficient >100 ng/mL Potential Toxicity Performed By: #### I RADHA VITAD #### [facility] [address] [place] [address] Dr. Dario Umaña Superficial Wound Cultureon 10-22-2022 [...] RESISTANT TO ALL B-LACTAM DRUGS. PERFORMED BY: [place] [address] PATHOLOGIST [employer] LIAISON DORETHA BLOOD M.D. [facility] Comment on above: Performed By: #### C USUP #### [address] Vital Signs Date Time Vital Sign Value Performing Clinician Lalit pablo 08-09-2024 13:22-0500 Blood Pressure Location Gulshan VILLALOBOS [facility] [place] 08-09-2024 13:22-0500 Diastolic blood pressure 66 mm[Hg] Gulshan VILLALOBOS [facility] [place] 08-09-2024 13:22-0500 Heart rate 79 /min Gulshan VILLALOBOS [facility] [place] 08-09-2024 13:22-0500 Respiratory rate 16 /min Gulshan NILL [facility] [place] 08-09-2024 13:22-0500 Systolic blood pressure 111 mm[Hg] Gulshan NILL [facility] [place] 05-31-2024 09:16-0500 Blood Pressure Location Audrey Lue [facility] 05-31-2024 09:16-0500 Diastolic blood pressure 66 mm[Hg] Audrey Lue [facility] 05-31-2024 09:16-0500 Heart rate 64 /min Audrey Lue [facility] 05-31-2024 09:16-0500 Systolic blood pressure 106 mm[Hg] Audrey Lue [facility] 03-08-2024 08:14-0400 Blood Pressure Location Audrey Lue [facility] 03-08-2024 08:14-0400 Diastolic blood pressure 79 mm[Hg] Audrey Lue [facility] 03-08-2024 08:14-0400 Heart rate 68 /min Audrey Lue [facility] 03-08-2024 08:14-0400 Respiratory rate 16 /min Audrey Lue [facility] 03-08-2024 08:14-0400 Systolic blood pressure 131 mm[Hg] Audrey Lue [facility] 12-14-2023 13:09-0400 Blood Pressure Location JULIA MORENO [facility] 12-14-2023 13:09-0400 Diastolic blood pressure 72 mm[Hg] JULIA MORENO [facility] 12-14-2023 13:09-0400 Heart rate 77 /min JULIA MORENO [facility] 12-14-2023 13:09-0400 Respiratory rate 19 /min JULIAOVI MORENO [facility] 12-14-2023 13:09-0400 Systolic blood pressure 120 mm[Hg] JULIAOVI MORENO [facility] Encounters Encounter Date Encounter Type Care Provider Facility Start: 08-09-2024 End: 08-09-2024 Lab Drop off Florinda Chapa [facility] Start: 08-09-2024 End: 08-09-2024 ambulatory Florinda Chapa Facility:[facility] Start: 08-09-2024 End: 08-09-2024 Patient encounter procedure Gulshan VILLALOBOS [facility] [place] Start: 07-03-2024 End: 07-03-2024 Lab Drop off JULIA MORENO [facility] Start: 07-03-2024 End: 07-03-2024 ambulatory JULIA MORENO Facility:[facility] Start: 07-03-2024 End: 07-03-2024 Patient encounter procedure Audrey Booker [facility] Start: 05-31-2024 End: 05-31-2024 ambulatory Audrey M. Lue Facility:[facility] Start: 05-31-2024 End: 05-31-2024 Patient encounter procedure Audrey M. Lue [facility] Start: 05-26-2024 End: 05-26-2024 Lab Drop off Audrey M. Lue [facility] Start: 05-26-2024 End: 05-26-2024 ambulatory Audrey M. Lue Facility:[facility] Start: 05-26-2024 End: 05-26-2024 Patient encounter procedure Audrey M. Lue [facility] Start: 03-08-2024 End: 03-08-2024 Lab Drop off Audrey M. Lue [facility] Start: 03-08-2024 End: 03-08-2024 ambulatory Audrey M. Lue Facility:[facility] Start: 03-08-2024 End: 03-08-2024 Patient encounter procedure Audrey M. Lue [facility] Start: 01-27-2024 End: 01-27-2024 Lab Drop off Yumiko X Orzech [facility] Start: 01-27-2024 End: 01-27-2024 Patient encounter procedure Audrey M. Lue [facility] Start: 01-03-2024 End: 01-03-2024 ambulatory Audrey Booker Facility:[facility] Start: 01-03-2024 End: 01-03-2024 Patient encounter procedure Audrey Booker [facility] Start: 12-14-2023 End: 12-14-2023 ambulatory Sinan Kendrick [facility] Start: 12-14-2023 End: 12-14-2023 Patient encounter procedure JULIA MORENO [facility] Start: 09-17-2023 ambulatory Audrey Booker Facility:[facility] Start: 11-11-[address] SINAN KENDRICK . Facili ty:[facility] Start: 10-22-2022 End: 10-22-2022 ambulatory Christophe Louis Facility:[facility] Start: 10-22-2022 End: 10-22-2022 ambulatory MD Christophe Louis Work Phone: [facility] Work Phone: Start: 10-22-2022 End: 10-22-2022 Patient encounter procedure MD Christophe Louis Work Phone: [facility] Work Phone: Procedures Date Procedure Procedure Detail Performing Clinician Start: 06-14-2014 Colonoscopy Gulshan LEWIS section JULIA RANGEL section Gulshan HAYWARD L Incision of nerve Gulshan LEWIS Tonsillectomy JULIA MORENO Plan of Treatment Date Care Activity Detail Author Start: 10-25-2024 ambulatory Ambulatory Facility:[facility] Start: 10-22-2022 Superficial Wound Culture Superficial Wound Culture [facility] Bacteria identified in Unspecified specimen by Aerobe culture [facility] Immunizations Immunization Date Immunization Notes Care Provider Fa tram 07-27-2023 zoster vaccine recombinant Audrey Lue [facility] 03-26-2023 influenza virus vaccine, unspecified formulation Audrey Lue [facility] 03-26-2023 zoster vaccine recombinant Audrey Lue [facility] 10-28-2020 SARS-CoV-2 (COVID-19 ) mRNA BNT-162b2 vax Audrey Lue [facility] 10-07-2020 SARS-CoV-2 (COVID-19 ) mRNA BNT-162c7 vax Audrey Lue [facility] 04-10-2020 influenza virus vaccine, unspecified formulation Audrey Lue [facility] 03-29-2019 influenza virus vaccine, unspecified formulation Audrey Lue [facility] 04-18-2018 influenza virus vaccine, unspecified formulation Audrey Lue [facility] 03-23-2017 influenza virus vaccine, unspecified formulation Audrey Lue [facility] 03-23-2017 zoster vaccine, live Audrey L ue [facility] 03-16-2016 influenza virus vaccine, unspecified formulation Audrey Lue [facility] 03-25-2015 influenza virus vaccine, unspecified formulation Audrey Lue [facility] Payers Date Payer Category Payer Self-pay 1958 Medicare [id number] 1955 Unknown [id number] 2.16.84 [id number] 1955 Unknown [id number] 2.16.8 40.1.245932.3.579.2.72 1955 Unknown [id number] 2.16.8 40.1.114263.3.579.2.72 1955 Unknown [id number] 2.16.8 40.1.771247.3.579.2. 1955 Unknown [id number] 2.16.8 40.1.312851.3.579.2. 1955 Unknown [id number] 2.16.8 40.1.220247.3.579.2. 1955 Unknown [id number] 2.16.8 40.1.315233.3.579.2. 1955 Unknown [id number] 2.16.8 40.1.660501.3.579.2. 1955 Unknown [id number] 2.16.8 40.1.756578.3.579.2. 1955 Unknown [id number] 2.16.8 40.1.861907.3.579.2. 1955 Unknown [id number] 2.16.8 40.1.371311.3.579.2. 1955 Unknown [id number] 2.16.8 40.1.663371.3.579.2. 1955 Unknown [id number] 2.16.8 40.1.883534.3.579.2.72 1955 Unknown [id number] 2.16.8 40.1.689779.3.579.2.727 1955 Unknown [id number] 2.16.8 40.1.245103.3.579.2.727 Unknown [id number] 2.16.8 40.1.269663.3.579.2.531 Social History Date Type Detail [facility] Work Phone: Start: 1955 Sex Assigned At Female F [facility] Start: 12-14-2023 End: 08-09-2024 Tobacco smoking status Never smoked tobacco (finding) [facility] Sex Assigned At Female [facility] Tobacco smoking status Never [facility] Functional Status Date Assessment Result Facility 08-09-2024 Functional Status N/A [facility] [place] 05-31-2024 Functional Status N/A [facility] 03-08-2024 Functional Status N/A [facility] 01-03-2024 Functional Status N/A [facility] 12-14-2023 Functional Status N/A [facility] Clinical Notes 12-14-2023 to 08-09-2024 Note Date [...] Never Smokeless Tobacc (more content not included)... [facility] Comment on above: Result Comment: [...] symptoms are. Treatment may include: Using an nvho-fdm-wazvzha vaginal lubricant before sex. Using a long-acting [...] Follow these instructions at home: Medicines Take ufyw-qoi-aupdrhy and prescription medicines only as told by your health care provider. Do not use herbal or alternative medicines unless your health care provider says that you can. Use tuca-fid-rocsfgd creams, lubricants, or moisturizers for dryness only [...] provider. Document Revised: 11/28/2020 Document Reviewed: 11/28/2020 [employer] Patient Education 2023 [employer]. Follow Up Care 03/08/2024 08:49:31 With:Jhony JONES, BRIJESH Mora, URO Address: [address] [place] [address]- [phone] When: Unknown Comments:3 mos w/ KORI [facility] Lisa 05-31-2024 Note Patient Education Obstetrics and Gynecology [...] are. Treatment may include: ??? Using an ifxz-jto-rlobtqi vaginal lubricant before sex. ??? Using a [...] these instructions at home: Medicines ??? Take lkpj-bmf-epeihtl and prescription medicines only as told by your health care provider. ??? Do not use herbal or alternative medicines unless your health care provider says that you can. ??? Use xnhp-pgm-inbsykq creams, lubricants, or moisturizers for dryness only [...] provider. Document Revised: 11/28/2020 Document Reviewed: 11/28/2020 [employer] Patient Education ? 2023 [employer] [facility] 03-08-2024 Hospital Discharg e instructions [...] Treatment for this condition includes: Antibiotic medicine. Nhss-seu-gmulwac medicines to treat discomfort. Drinking enough water [...] Follow these instructions at home: Medicines Take cbqc-tur-ncroesn and prescription medicines only as told by [...] provider. Document Revised: 01/05/2021 Document Reviewed: 01/10/2021 [employer] Patient Education 2023 [employer]. 03/08/2024 08:41:45 Overactive Bladder, Adult Overactive Bladder, [...] your health care provider. General instructions Take rqbc-dyz-iiwaqxs and prescription medicines only as told by [...] provider. Document Revised: 02/17/2021 Document Reviewed: 02/17/2021 [employer] Patient Education 2023 [employer]. Follow Up Care 01/03/2024 11:05:30 With:Jhony JONES, BRIJESH Mora, URO Address: When: Unknown Comments:3 mos [facility] 03-08-2024 Note Patient Education Obstetrics and Gynecology [...] this condition includes: ? Antibiotic medicine. ? Sumw-hvl-oexzzxh medicines to treat discomfort. ? Drinking enough [...] these instructions at home: Medicines ? Take btzw-lyk-umjozoi and prescription medicines only as told by [...] Document Revised: 01/05 (more content not included)... [facility] 01-03-2024 Evaluation + Plan note Extrac khoi from: Title: - [facility] HOP Note Author:Audrey Booker MD Date:01/03/24 Impression and Plan Assessment and Plan: Diagnosis: UTI symptoms ([id number] R39.9, Working, Medical), Urethral meatal stenosis (KAF24-MK N35.919, Working, Medical), Recurrent UTI (IYA97-BJ N39.0, Working, Medical), Urge urinary incontinence (LLP13-TD N39.41, Discharge, Medical). 68 year old female [...] Date:03/08/2024 08:00:00 AM Scheduled Provider:Audrey Booker MD Location:[facility] Appointment Type:URO Office Visit [facility]07-22-2024 NoteProgress Note-Physician Patient: LAINE LOPEZ Age: 68 [...] day(s), # 6 tab(s), Refills(s) 0, Pharmacy: [id number], 165, cm, 01/03/24 10:27:00 EDT, Height/Length [...] Plan Assessment and Plan: Diagnosis: UTI symptoms (ZCW97-WJ R39.9, Working, Medical), Urethral meatal stenosis (OEN70-RG N35.919, Working, Medical), Recurrent UTI (UTQ37-CQ N39.0, Working, Medical), Urge urinary incontinence (HBW02-YJ N39.41, Discharge, Medical). 68 year old female [...] -[facility]Result Comment: Electronically Signed By: Jhony JONES, Audrey Wong.br\Date and Time Signed: 01/03/24 [id number] Hospital Discharge instructions Patient Education 01/03/2024 11:01:01 [...] Up Care 12/20/2023 16:07:12 With:Audrey Booker Address: [facility] [place], [address] [address] [phone] Business (1) When: Unknown Comments:Office to schedule follow up in 1-2 months [facility]07-22-2024 NotePatient Education Cystoscopy ? Voiding after the [...] if you have a fever over 100 degrees.[facility] 12-14-2023 Hospital Discharge instructions Patient [...] including vitamins, herbs, eye drops, creams, and inhx-vin-hnshjmu medicines. Any problems you or family members [...] provider tells you to take them. Taking tpvq-foj-ybpdigf medicines, vitamins, herbs, and supplements. Tests You [...] Follow these instructions at home: Medicines Take vash-noo-swjrcqc and prescription medicines only as told by [...] provider. Document Revised: 02/11/2022 Document Reviewed: 01/10/2021 [employer] Patient Education 2022 [employer]. 12/14/2023 13:54:20 Urinary Tract Infection, Adult Urinary [...] Treatment for this condition includes: Antibiotic medicine. Qaqx-zbu-shqjjxm medicines to treat discomfort. Drinking enough water [...] Follow these instructions at home: Medicines Take nyyb-dgj-vzlgpyc and prescription medicines only as told by [...] provider. Document Revised: 01/10/2021 Document Reviewed: 01/10/2021 [employer] Patient Education 2022 [employer]. Follow Up Care 09/21/2023 12:54:29 With:JULIA MORENO PA-C, URL Address: [place] [address] When: Unknown [facility] Lisa 07-02-2024 NoteUrology Office/Clinic Note Chief Complaint [...] yes avoids baths/hot tubs yes avoids scented [employer] products yes urinates after sexual activity n/a [...] When Contact Information JULIA MORENO PA-C, URL [id number] [place] [address] Additional Instructions: schedule cysto with possible UD, [...] data Procedure/Surgical History Ce (more content not included)...[facility]: Result Comment: Electronically Signed By: JULIA MORENO PA-C\.br\Date and Time Signed: 12/13/2413:22 EDT\.br\Electronically Co-Signed By: Shayla Lane\.br\Date and Time Co-Signed: 12/14/23 14:08 [id number] NotePatient Education Obstetrics and Gynecology Urinary Tract [...] this condition includes: ? Antibiotic medicine. ? Lrhy-ais-dsgegtb medicines to treat discomfort. ? Drinking enough [...] these instructions at home: Medicines ? Take idhu-nri-mgczuee and prescription medicines only as told by [...] provider. Document Revised: 01/10 (more content not included)...[facility] No data available for this section [facility] evaluation + Plan note Future Appointments Appointment Date:03/08/2024 08:00:00 AM Scheduled Provider:Audrey Booker MD Location:[facility] Appointment Type:URO Office Visit Diagnostic Tests Pending * Urine Culture 01/27/24 [facility] evaluation + Plan note Future Appointments Appointment Date:03/08/2024 08:00:00 AM Scheduled Provider:Audrey Booker MD Location:[facility] Appointment Type:URO Office Visit [facility] evaluation + Plan note Future Appointments Appointment Date:05/31/2024 08:45:00 AM Scheduled Provider:Audrey Booker MD Location:[facility] Appointment Type:URO Office Visit Diagnostic Tests Pending * Urine Culture 03/08/24 [facility] evaluation + Plan note Future Appointments Appointment Date:05/31/2024 08:45:00 AM Scheduled Provider:Audrey Booker MD Location:[facility] Appointment Type:URO Office Visit [facility] evaluation + Plan note Future Appointments Appointment Date:05/31/2024 08:45:00 AM Scheduled Provider:Audrey Booker MD Location:[facility] Appointment Type:URO Office Visit Diagnostic Tests Pending * Urine Culture 05/26/24 [facility] evaluation + Plan note Future Appointments Appointment Date:08/30/2024 08:00:00 AM Scheduled Provider:Audrey Booker MD Location:[facility] Appointment Type:URO Office Visit [facility] evaluation + Plan note Future Appointments Appointment Date:08/30/2024 08:00:00 AM Scheduled Provider:Audrey Booker MD Location:[facility] Appointment Type:URO Office Visit Diagnostic Tests Pending * Urine Culture 07/03/24 [facility] evaluation + Plan note Future Appointments Appointment Date:10/25/2024 08:45:00 AM Scheduled Provider:Audrey Booker MD Location:[facility] Appointment Type:URO Office Visit [facility] [place] Evaluation + Plan note Future Appointments Appointment Date:10/25/2024 08:45:00 AM Scheduled Provider:Audrey Booker MD Location:[facility] Appointment Type:URO Office Visit Diagnostic Tests Pending * Urine Culture 08/09/24 [facility] Evaluation noteNo assessment information available [facility] Work Phone: Hospital Discharge instructions No data available for this section [facility] Progress note No data available for this section [facility] Summary Purpose Family History No [...] and content) DATE CREATED AUTHOR 11/20/2022 [facility] pitia DATE CREATED AUTHOR AUTHOR'S ORGANIZ ATION 03/20/2023 [facility] DATE CREATED AUTHOR AUTHOR'S ORGANIZ ATION 01/07/2024 [facility] DATE CREATED AUTHOR AUTHOR'S ORGANIZ ATION 01/31/2024 [facility] DATE CREATED AUTHOR AUTHOR'S ORGANIZ ATION 03/12/2024 [facility] DATE CREATED AUTHOR AUTHOR'S ORGANIZ ATION 05/29/2024 [facility] DATE CREATED AUTHOR AUTHOR'S ORGANIZ ATION 05/30/2024 [facility] DATE CREATED AUTHOR AUTHOR'S ORGANIZ ATION 06/03/2024 [facility] DATE CREATED AUTHOR AUTHOR'S ORGANIZ ATION 07/07/2024 [facility] DATE CREATED AUTHOR AUTHOR'S ORGANIZ ATION 08/04/2024 [facility] DATE CREATED AUTHOR AUTHOR'S ORGANIZ ATION 08/10/2024 [facility] DATE CREATED AUTHOR AUTHOR'S ORGANIZ ATION 08/11/2024 [facility] DATE CREATED AUTHOR AUTHOR'S ORGANIZ ATION 08/13/2024 [facility] DATE CREATED AUTHOR AUTHOR'S ORGANIZ ATION 08/17/2024 [facility] FOR RECORDS PERTAINING TO [...] BE BASED ON THE PRIMARY CLINICAL RECORDS. [facility] [employer] [facility]. provides no warranty or guarantee of the accuracy or completeness of information in this document.
[2024-08-30 07:25] VITALS: BP 109/62; PULSE 70; TEMP 36.3; O2SAT 95; BMI 34.2
[2024-08-30 07:52] LABS: Glucometer 117 mg/dL (74-106)
[2024-08-30] MEDS: 0.9 % SODIUM CHLORIDE 500 ML 50 ML IV (07:55)
[2024-08-30] MEDS: 0.9 % SODIUM CHLORIDE 500 ML IV (08:56)
[2024-08-30 09:11] VITALS: BP 90/55; PULSE 67; TEMP 36.3; O2SAT 96
[2024-08-30 09:26] VITALS: BP 119/81; PULSE 68; O2SAT 97
[2024-08-30 09:41] VITALS: BP 131/64; PULSE 72; O2SAT 96
== END 2024-08-30 09:50 | disposition home or self-care (01) ==
PROVIDERS: PCP Family Medicine; Visit Provider Surgery
PROC: (CPT G0105; principal; 2024-08-30 08:25)
DX: Z12.11 Encounter for screening for malignant neoplasm of colon (principal); Z86.0101 Personal history of adenomatous and serrated colon polyps; Z80.0 Family history of malignant neoplasm of digestive organs; E11.9 Type 2 diabetes mellitus without complications; I10 Essential (primary) hypertension; E03.9 Hypothyroidism, unspecified; G47.33 Obstructive sleep apnea (adult) (pediatric); M54.12 Radiculopathy, cervical region; J45.909 Unspecified asthma, uncomplicated; Z87.440 Personal history of urinary (tract) infections
CPT/HCPCS: G0105; 36415; 82948; J2704